=== PATIENT | female | born 1945 ===

== ENCOUNTER 2020-01-07 10:06 | Outpatient (REF) | payer OTHER, SELFPAY ==
--- NOTE | 2020-01-07 10:11 | CT_ITS ---
EXAMINATION: CT LUMBAR SPINE WITHOUT CONTRAST CLINICAL INFORMATION: Lower back pain COMPARISON: 10/15/2019 TECHNIQUE: Multidetector volumetric imaging of the lumbar spine performed without IV contrast. Coronal and sagittal reformatted images are obtained and reviewed. This CT examination was performed using dose optimization techniques as appropriate, variously including the following: *Automated exposure control *Adjustment of mA and/or kV according to patient size (this includes techniques or standardized protocols for targeted exams where dose is matched to indication/reason for exam; i.e. extremities or head) *Use of iterative reconstruction technique DLP; 356 mGy-cm FINDINGS: There is posterior fusion hardware in place at L4-L5. Grade 1 anterolisthesis of L3 on L4 and L4 on L5. This is unchanged. Disc space narrowing at L3-L4, L4-L5 with vacuum disc phenomenon at these levels. Also vacuum disc phenomenon at L5-S1. Severe arthropathy throughout. Laminectomy at L4-L5. The lung bases are clear. The visualized retroperitoneal structures show no acute abnormality. No lymphadenopathy. The sacroiliac joints are symmetric. Degenerative changes noted. Spinal levels: T12-L1: Hypertrophy of the ligamentum flavum on the left. Mild facet arthropathy. No spinal canal or neuroforaminal narrowing. L1-L2: Disc bulge. Facet arthropathy. Mild spinal canal narrowing. No neuroforaminal narrowing. L2-L3: Disc bulge with hypertrophy of the ligamentum flavum. Facet arthropathy. Moderate narrowing of the spinal canal. No neuroforaminal narrowing. L3-L4: Small disc bulge. Facet arthropathy with anterolisthesis of L3 on L4. Severe spinal canal narrowing. Moderate left neural foraminal narrowing. L4-L5: Laminectomy at this level. No narrowing. Fusion. L5-S1: No significant disc bulge. Facet arthropathy. No significant spinal canal or neuroforaminal narrowing. IMPRESSION: Intact posterior fusion hardware with unchanged alignment and appearance from previous CT. There is advanced degenerative change at L3-L4 with anterolisthesis of L3 on L4. Severe spinal canal narrowing and moderate left neural foraminal narrowing.
== END 2020-01-07 10:07 | disposition home or self-care (01) ==
LOC: HO.CT 10:06
PROVIDERS: PCP Nurse Practitioner Family; Visit Provider Nurse Practitioner Family
DX: M54.5 Low back pain (principal)
CPT/HCPCS: 72131

== ENCOUNTER 2020-01-18 12:33 | Outpatient (REF) | payer OTHER, SELFPAY | END 2020-01-18 12:34 | disposition home or self-care (01) | LOC: HO.HAP 12:33 | PROVIDERS: PCP Nurse Practitioner Family; Referring Provider Nurse Practitioner Family; Visit Provider Nurse Practitioner Family | DX: Z13.89 Encounter for screening for other disorder (principal) | CPT/HCPCS: 92700 ==

== ENCOUNTER → 2020-01-29 13:51 | Outpatient (BNVA) | payer OTHER, SELFPAY | PROVIDERS: PCP Nurse Practitioner Family; Referring Provider Nurse Practitioner Family; Visit Provider Nurse Practitioner Family | DX: K58.9 Irritable bowel syndrome, unspecified (principal); K21.9 Gastro-esophageal reflux disease without esophagitis | CPT/HCPCS: 99212 ==

== ENCOUNTER 2020-02-01 11:09 | Outpatient (REF) | payer OTHER, SELFPAY ==
--- NOTE | 2020-02-01 11:12 | CT_ITS ---
EXAMINATION: CT HEAD WITHOUT CONTRAST CLINICAL INFORMATION: Posttraumatic headache. History of falling. COMPARISON: Head CT 02/24/2018. TECHNIQUE: Contiguous axial imaging was performed from the skull base to vertex without intravenous administration of contrast. This CT examination was performed using dose optimization techniques as appropriate, variously including the following: *Automated exposure control *Adjustment of mA and/or kV according to patient size (this includes techniques or standardized protocols for targeted exams where dose is matched to indication/reason for exam; i.e. extremities or head) *Use of iterative reconstruction technique DLP: 628 mGy-cm. FINDINGS: There is no intracranial hemorrhage, extra-axial collection, mass effect, or territorial infarction. The ventricles are normal in size without evidence of hydrocephalus. The brain parenchyma is commensurate with the ventricles without disproportionate atrophy. No significant encephalomalacia or gliosis is seen. The calvarium is intact. The imaged portions of the paranasal sinuses and mastoid air cells are essentially clear. The sella is partially empty. CT/CT head/brain wo con IMPRESSION: No acute intracranial abnormality.
== END 2020-02-01 11:10 | disposition home or self-care (01) ==
LOC: HO.CT 11:09
PROVIDERS: PCP Nurse Practitioner Family; Visit Provider Nurse Practitioner Family
DX: G44.309 Post-traumatic headache, unspecified, not intractable (principal); Z91.81 History of falling
CPT/HCPCS: 70450

== ENCOUNTER 2020-02-15 10:44 | Outpatient (REF) | payer OTHER, SELFPAY | END 2020-02-15 10:45 | disposition home or self-care (01) | LOC: HO.HAP 10:44 | PROVIDERS: PCP Nurse Practitioner Family; Referring Provider Family Medicine; Visit Provider Nurse Practitioner Family | DX: Z46.1 Encounter for fitting and adjustment of hearing aid (principal); H90.3 Sensorineural hearing loss, bilateral | CPT/HCPCS: V5011; V5020; V5241; V5256 ==

== ENCOUNTER 2020-03-03 12:29 | Emergency (ER) | payer OTHER, SELFPAY ==
--- NOTE | 2020-03-03 12:57 | ED.FALL ---
HPI - Fall General Chief Complaint: Fall Stated Complaint: FAll Time Seen by Provider: 03/03/20 12:57 Source: EMS Mode of arrival: EMS Limitations: language barrier (Mongolian-speaking, cloth shrinking tester present for all instructions) History of Present Illness HPI Narrative: Pleasant 74-year-old female primarily Mongolian-speaking who presents via EMS from her home with complaint of fall and head/right shoulder injury. Reports feeling outside to have a cigarette after free for any smoking she went to turn to go back inside she has a walker with wheels and she stumbled on her feet and fell to her right side landing on the right shoulder and hitting her head on the ground. States there was a bystander close by who helped her up right away and called EMS. EMS subsequently placed her in a collar given the complaint of head injury. Patient denies any prodromal symptoms. No dizziness, chest pain or shortness of breath. No nausea vomiting or abdominal pain. States she has otherwise been at her usual health. She does live alone but has a PM HEAD COOK who helps her with her ADLs majority of the day. She denies any pain extremities and in her hands wrist or lower extremities. No torso injury or back pain. MD complaint: fall Fall from: standing Fall witnessed: yes, by bystander Place fall occurred: home Loss of consciousness: none Prolonged down time: no Symptoms prior to fall: none Context: tripped/slipped Location of injury: head and other (Right shoulder ) Related Data Home Medications Medication Instructions Recorded Confirmed atorvastatin 40 mg tablet 40 mg PO QPM 01/29/20 01/29/20 clonazepam 1 mg tablet 1 mg PO BID 01/29/20 01/29/20 dicyclomine 20 mg tablet 20 mg PO QID 01/29/20 01/29/20 duloxetine 60 mg capsule,delayed 60 mg PO DAILY 01/29/20 01/29/20 release gabapentin 300 mg capsule 600 mg PO QID cap 01/29/20 01/29/20 [id number]-[id number] PO 01/29/20 01/29/20 3,000-9,500-15,000 unit capsule,delayed releas sucralfate 100 mg/mL oral 10 ml PO BID 01/29/20 01/29/20 suspension Previous Rx's Medication Instructions Recorded dicyclomine 20 mg tablet 20 mg PO QID 30 Days #120 tab 12/31/19 Allergies Allergy/AdvReac Type Severity Reaction Status Date / Time morphine [MORPHINE] Allergy Intermediate GI Unverified 12/10/19 16:17 UPSET,TACHYCARDIA clams AdvReac Intermediate GI UPSET Unverified 12/10/19 16:17 rosiglitazone [From [facility]ANDIA] AdvReac Unknown PEDAL EDEMA Unverified 12/10/19 16:17 clam Allergy Unknown Uncoded 09/02/19 00:00 Review of Systems Review of Systems: Constitutional: No Weight loss, No Fever, No Chills, No Night Sweats, No Fatigue, No Malaise ENT/Mouth: No Hearing loss, No Ear Pain, No Nasal Congestion, No Sinus Pain, No Hoarseness, No sore throat Eyes: No Eye Pain, No Swelling, No Redness, No Foreign Body, No Discharge, No Vision Changes Cardiovascular: No Chest Pain, No SOB, No Dyspnea on Exertion, No Orthopnea, No Edema, No Palpitations Respiratory: No Cough, No Sputum, No Wheezing, No Smoke Exposure, No Dyspnea Gastrointestinal: No Nausea, No Vomiting, No Diarrhea, No Constipation, No abdominal Pain, No Hematochezia, No Melena Genitourinary: no irregular bleeding, No Dysuria, No Urinary Frequency, No Hematuria, No Urinary Incontinence, No Urgency, No Flank Pain, No Urinary Flow Changes, No Hesitancy Musculoskeletal: No joint pain, No Myalgias, No Joint Swelling, As noted in HPI; right shoulder pain and slight pain to the posterior side scalp right-sided Skin: No Skin Lesions, No rash Neuro: No Weakness, No Numbness, No Paresthesias, No Loss of Consciousness, No Dizziness, No Headache Psych: No Anxiety/Panic, No Depression, No SI/HI/AH/VH, No Social Issues, Heme/Lymph: No Bruising, No Bleeding,No Lymphadenopathy Endocrine: No Polyuria, No Polydipsia, No Temperature Intolerance Yes all other systems are reviewed and are negative [facility] Past Medical History Medical History (Updated 03/03/20 @ 15:59 by Jose Carter NP) Diabetes HTN (hypertension) Surgical History History of back surgery History of colonoscopy Hx of cholecystectomy Hx of endoscopy Family History Family History (Updated 01/29/20 @ 14:01 by Kathy Hernandez MA) Father No problems noted. Mother No problems noted. Social History Social History (Updated 01/29/20 @ 14:03 by Kathy Hernandez MA) Alcohol intake: never Smoking Status: Current every day smoker Tobacco Type: Cigarette Cigarettes Per Day: 5 Advance Directives: No Advance Directives Information Provided: Yes Physical Exam Vital Signs: Vital Signs: Last Vital Signs Temp 98.2 F 03/03/20 15:29 Pulse 65 03/03/20 15:29 Resp 16 03/03/20 15:29 BP 110/91 H 03/03/20 15:29 Pulse Ox 98 03/03/20 15:29 Body Mass Index 25.4 Reviewed Const: Other: Cervical collar in place General: cooperative and comfortable; No acute distress or intoxicated appearing Nutritional Appearance: average body habitus Orientation/consciousness: patient oriented x3 HENMT: Head: Yes normal to inspection Ears: hearing grossly normal bilaterally Eyes: General: appearance normal, both eyes and all related structures Visual Martinez: normal visual martinez by confrontation Neck: Other: Calling place Neck: Yes normal visual inspection Thyroid: Thyroid normal Chest: Chest palpation & inspection: normal inspection of the chest, normal palpation of entire chest wall and no crepitus Resp: Effort & Inspection: normal respiratory effort Auscultation: clear to auscultation bilaterally Cardio: Jugular venous distension: no JVD Rhythm: regular rhythm Heart sounds: S1 normal heart sound present and S2 normal heart sound present GI: Inspection: Yes normal to inspection Percussion: Yes normal to percussion Auscultation: normal bowel sounds : General: Yes no CVA tenderness Back/Spine/Pelvis: Back: no CVA tenderness Skin: General skin exam: no rashes or lesions noted Neuro: General: patient oriented x3 Extrem: General: Yes normal to inspection Shoulder/upper arm images: 1. Slight pain over this area where she had the ground. No abrasion, ecchymosis or obvious deformity. Distally neurovascular intact. Is able to move and take her own sweater off Course Course Course Narrative: A P of 70-year-old with above history presenting with mechanical fall injuring right shoulder and scalp hematoma imaging with incidental findings otherwise no acute fracture. Findings reviewed advised for outpatient follow-up for chest CT. Copy of her CT provided. She is able to get out of bed by herself but her sweater on and ambulated without any pain or discomfort. MDM - Fall Medical Records Attestation: I reviewed the patient's medical records. Lab Data Attestation: I reviewed the patient's lab results. Imaging Data Right shoulder x-ray: Radiologist's impression: [id number] [place] [address] XRay Report Signed Patient: Cheryl Romeo MMR#: [id number] : 1945cct:[id number] Age/Sex: 74 / FADM Date: 03/03/20 Loc: HO.ED Attending Dr: Ordering Physician: Jose Carter NP Date of Service: 03/03/20 Procedure(s): XR shoulder RT min 2V Accession Number(s): [id number] cc: Jose Carter NP~ EXAMINATION: XR SHOULDER, RIGHT CLINICAL INFORMATION: Pain after fall COMPARISON: None TECHNIQUE: AP external rotation, Grashey, scapular Y, and axillary views of the right shoulder. FINDINGS: Alignment is normal at the acromioclavicular and glenohumeral joints. There is osteophyte formation and subchondral cystic change of the degenerated acromioclavicular joint. Small osteophytes are present at the inferior aspect of the glenohumeral joint. The humeral head is well-positioned over the intact glenoid. The glenohumeral joint space is preserved. There is mild enthesophyte formation at the greater tuberosity the humerus. No evidence of calcium deposition within rotator cuff tendons. The visualized right upper lung is normal. No pneumothorax. No rib fracture (within the [id number]). Multilevel degenerative arthropathy of the partially visualized thoracic spine. XR/XR shoulder RT min 2V IMPRESSION: * No acute fracture or malalignment at the right shoulder. * Mild osteoarthritis of the glenohumeral joint, and [id number] osteoarthritis of the acromioclavicular joint. Dictated By:LISBETH CARTAGENA MD Signed By:<Electronically signed by LISBETH CARTAGENA MD in OV>03/03/20 1523 DD/ 1323 TD/TT: [employer] Insurance Advisor: PD Head/cervical CT: Radiologist's impression: Cheryl Romeo 74 F [address] [address] [address] Scan Report Signed Patient: Cheryl Romeo MMR#: [id number] : 1945cct:[id number] Age/Sex: 74 / FADM Date: 03/03/20 Loc: HO.ED Attending Dr: Ordering Physician: Jose Carter NP Date of Service: 03/03/20 Procedure(s): CT cervical spine wo con Accession Number(s): [id number] cc: Jose Carter TRAVEL MONEY ADVISOR~ EXAMINATION: CT HEAD W/O IV CONTRAST CT CERVICAL SPINE W/O IV CONTRAST CLINICAL INFORMATION: Pain after fall. COMPARISON: Head CT from 02/01/2020 TECHNIQUE: Head - Contiguous axial imaging of the head was performed from the skull base to the vertex without the administration of intravenous contrast, and axial images are reconstructed at 2 mm and 5 mm slice thickness. Cervical spine - A volumetric, helical CT acquisition of the cervical spine was obtained without contrast; in addition to the standard set of axial images, multiplanar reformatted images were provided in the coronal and sagittal imaging planes. This CT examination was performed using dose optimization techniques as appropriate, variously including the following: *Automated exposure control *Adjustment of mA and/or kV according to patient size (this includes techniques or standardized protocols for targeted exams where dose is matched to indication/reason for exam; i.e. extremities or head) *Use of iterative reconstruction technique DLP: 907 mGy-cm (total) FINDINGS: HEAD: No intracranial hemorrhage, extra-axial fluid collection, focal mass effect or midline shift. No evidence of an acute major vascular territory infarction. The huynh-white matter differentiation is maintained. No hydrocephalus. Old small lacunar infarct along the right muir radiata (image 47, series 4). No acute findings in the posterior fossa. Cerebellar tonsils are normal position. The calvarium is intact. Mild mucosal thickening of inferior maxillary sinuses. Otherwise, the paranasal sinuses, mastoid air cells and middle ear cavities are well aerated. Mild osteoarthritis of bilateral temporomandibular joints. Lenses are extracted from the globes of each orbit. Patchy opacity from contusion/hemorrhage in subcutaneous tissues of the right occipital scalp. CERVICAL SPINE: No acute abnormalities. The craniocervical junction is normal. The occipital condyles, dens and atlantodental articulation are intact. The vertebral body heights are normal. No fractures in the anterior or posterior elements. No prevertebral soft tissue swelling. There is multilevel facet osteoarthritis and discovertebral degenerative change. At C4-C5, the facet osteoarthritis is associated with 0.3 cm of anterolisthesis of C4 on C5. Also, there is a stairstep pattern of mild degenerative anterolisthesis at C5-C6, C6-C7 and C7-T1. Posterior disc osteophyte complexes at C3-C4 and C6-C7 produce mild indentation on the ventral surface of the thecal sac. No significant canal stenosis. There is multilevel uncovertebral joint hypertrophy. Osteophytes produce varying degrees of bilateral neural foraminal stenosis in the chronically degenerated spine. No spinal hematoma. No apical pneumothorax. Small, 0.4 cm solid, noncalcified nodule is present in the posterior left upper lobe along the major fissure. Thyroid gland is unremarkable. CT/CT cervical spine wo con IMPRESSION: * No acute intracranial pathology. * After the recent fall, there is a right occipital scalp hematoma. No calvarial fracture. * There are no fractures within the degenerated cervical spine. * No fracture or malalignment in the cervical spine. * Incidentally noted is a small, 0.4 cm nodule in the left upper lobe. Chest CT follow-up is not required in a low-risk patient and may be considered optional in a high risk patient. Dictated By:LISBETH CARTAGENA MD Signed By:<Electronically signed by LISBETH CARTAGENA MD in OV>03/03/20 1440 DD/ 1323 TD/TT: [employer] Insurance Advisor: PD Discharge Plan Discharge Clinical Impression: Fall from slip, trip, or stumble, Hematoma of scalp, Contusion of right shoulder Patient Disposition: Home, Self-Care Instructions: Contusion in Adults (ED), Scalp Contusion in Adults (ED), Fall Prevention (ED) Prescriptions: No Action dicyclomine 20 mg tablet 20 mg PO QID 30 Days Qty: 120 RF: 3 sucralfate 100 mg/mL suspension 10 ml PO BID RF: 0 Creon 3,000-9,500- 15,000 unit capsule,delayed release(DR/EC) PO RF: 0 atorvastatin 40 mg tablet 40 mg PO QPM RF: 0 clonazepam 1 mg tablet 1 mg PO BID RF: 0 dicyclomine 20 mg tablet 20 mg PO QID RF: 0 duloxetine 60 mg capsule,delayed release(DR/EC) 60 mg PO DAILY RF: 0 gabapentin 300 mg capsule 600 mg PO QID RF: 0 Referrals: ED Physician,Generic [Physician] - 1 week (Primary care ) Discharge Date/Time: 03/03/20 16:11
[2020-03-03 13:13] VITALS: BP 120/71; PULSE 61; RESP 20; TEMP 36.9; O2SAT 96; BMI 25.4
--- NOTE | 2020-03-03 13:23 | CT_ITS ---
EXAMINATION: CT HEAD W/O IV CONTRAST CT CERVICAL SPINE W/O IV CONTRAST CLINICAL INFORMATION: Pain after fall. COMPARISON: Head CT from 02/01/2020 TECHNIQUE: Head - Contiguous axial imaging of the head was performed from the skull base to the vertex without the administration of intravenous contrast, and axial images are reconstructed at 2 mm and 5 mm slice thickness. Cervical spine - A volumetric, helical CT acquisition of the cervical spine was obtained without contrast; in addition to the standard set of axial images, multiplanar reformatted images were provided in the coronal and sagittal imaging planes. This CT examination was performed using dose optimization techniques as appropriate, variously including the following: *Automated exposure control *Adjustment of mA and/or kV according to patient size (this includes techniques or standardized protocols for targeted exams where dose is matched to indication/reason for exam; i.e. extremities or head) *Use of iterative reconstruction technique DLP: 907 mGy-cm (total) FINDINGS: HEAD: No intracranial hemorrhage, extra-axial fluid collection, focal mass effect or midline shift. No evidence of an acute major vascular territory infarction. The huynh-white matter differentiation is maintained. No hydrocephalus. Old small lacunar infarct along the right muir radiata (image 47, series 4). No acute findings in the posterior fossa. Cerebellar tonsils are normal position. The calvarium is intact. Mild mucosal thickening of inferior maxillary sinuses. Otherwise, the paranasal sinuses, mastoid air cells and middle ear cavities are well aerated. Mild osteoarthritis of bilateral temporomandibular joints. Lenses are extracted from the globes of each orbit. Patchy opacity from contusion/hemorrhage in subcutaneous tissues of the right occipital scalp. CERVICAL SPINE: No acute abnormalities. The craniocervical junction is normal. The occipital condyles, dens and atlantodental articulation are intact. The vertebral body heights are normal. No fractures in the anterior or posterior elements. No prevertebral soft tissue swelling. There is multilevel facet osteoarthritis and discovertebral degenerative change. At C4-C5, the facet osteoarthritis is associated with 0.3 cm of anterolisthesis of C4 on C5. Also, there is a stairstep pattern of mild degenerative anterolisthesis at C5-C6, C6-C7 and C7-T1. Posterior disc osteophyte complexes at C3-C4 and C6-C7 produce mild indentation on the ventral surface of the thecal sac. No significant canal stenosis. There is multilevel uncovertebral joint hypertrophy. Osteophytes produce varying degrees of bilateral neural foraminal stenosis in the chronically degenerated spine. No spinal hematoma. No apical pneumothorax. Small, 0.4 cm solid, noncalcified nodule is present in the posterior left upper lobe along the major fissure. Thyroid gland is unremarkable. CT/CT cervical spine wo con IMPRESSION: * No acute intracranial pathology. * After the recent fall, there is a right occipital scalp hematoma. No calvarial fracture. * There are no fractures within the degenerated cervical spine. * No fracture or malalignment in the cervical spine. * Incidentally noted is a small, 0.4 cm nodule in the left upper lobe. Chest CT follow-up is not required in a low-risk patient and may be considered optional in a high risk patient.
--- NOTE | 2020-03-03 13:23 | XR_ITS ---
EXAMINATION: XR SHOULDER, RIGHT CLINICAL INFORMATION: Pain after fall COMPARISON: None TECHNIQUE: AP external rotation, Grashey, scapular Y, and axillary views of the right shoulder. FINDINGS: Alignment is normal at the acromioclavicular and glenohumeral joints. There is osteophyte formation and subchondral cystic change of the degenerated acromioclavicular joint. Small osteophytes are present at the inferior aspect of the glenohumeral joint. The humeral head is well-positioned over the intact glenoid. The glenohumeral joint space is preserved. There is mild enthesophyte formation at the greater tuberosity the humerus. No evidence of calcium deposition within rotator cuff tendons. The visualized right upper lung is normal. No pneumothorax. No rib fracture (within the [id number]). Multilevel degenerative arthropathy of the partially visualized thoracic spine. XR/XR shoulder RT min 2V IMPRESSION: * No acute fracture or malalignment at the right shoulder. * Mild osteoarthritis of the glenohumeral joint, and [id number] osteoarthritis of the acromioclavicular joint.
--- NOTE | 2020-03-03 14:50 | PC.NURSE ---
ambulatory with steady gait, no bleeding from facial wound, cold pack in place, julianne blanco at bedside
--- NOTE | 2020-03-03 14:51 | PC.NURSE ---
human relations teacher chuyita and pt aware ct scan results, hard collar removed by human relations teacher
[2020-03-03 15:29] VITALS: BP 110/91; PULSE 65; RESP 16; TEMP 36.8; O2SAT 98
== END 2020-03-03 16:11 | disposition home or self-care (01) ==
PROVIDERS: Nurse Practitioner Primary Care; Emergency Provider Emergency Medicine
DX: S00.03XA Contusion of scalp, initial encounter (principal); S40.011A Contusion of right shoulder, initial encounter; W01.198A Fall on same level from slipping, tripping and stumbling with subsequent striking against other object, initial encounter; Z20.828 Contact with and (suspected) exposure to other viral communicable diseases; R91.8 Other nonspecific abnormal finding of lung field; R91.1 Solitary pulmonary nodule; Y93.01 Activity, walking, marching and hiking; Y92.480 Sidewalk as the place of occurrence of the external cause; Y99.9 Unspecified external cause status; F17.210 Nicotine dependence, cigarettes, uncomplicated
CPT/HCPCS: 70450; 72125; 73030; 99283; U0003

== ENCOUNTER 2020-04-08 11:08 | Outpatient (REF) | payer OTHER, SELFPAY ==
--- NOTE | 2020-04-08 | MM_ITS ---
EXAMINATION: MM SCREENING DIGITAL BREAST TOMOSYNTHESIS, BILATERAL CLINICAL INFORMATION: Screening. Asymptomatic. The lifetime risk of breast cancer based on the Tyrer-Cuzick Model is 3%. COMPARISON: Mammography: 01/15/2019, 12/31/2017, 12/04/2016, 06/08/2016, 05/31/2016 TECHNIQUE: Digital breast tomosynthesis is performed in both the craniocaudal and mediolateral oblique views along with computer-aided detection (CAD). Synthesized 2D images are generated from the tomosynthesis. FINDINGS: There are scattered areas of fibroglandular density (ACR BI-RADS breast composition Category b). Parenchymal pattern is similar to prior studies. Again, there is nodular asymmetry mid upper outer left breast and nodular asymmetry anterior upper outer right breast. There is no developing density or interval mass or architectural abnormality. There are scattered benign round calcifications in each breast low left axillary tail node again seen. The skin contours are smooth. MM/MM tomosynthesis screening BI IMPRESSION: No significant changes from prior exams. ASSESSMENT: BI-RADS 2: Benign RECOMMENDATION: Routine annual mammography screening. This patient's information was entered into a reminder system with a target due date for their next mammogram.
== END 2020-04-08 11:09 | disposition home or self-care (01) ==
LOC: HO.MAMMO 11:08
PROVIDERS: PCP Nurse Practitioner Family; Visit Provider Nurse Practitioner Family
DX: Z12.31 Encounter for screening mammogram for malignant neoplasm of breast (principal)
CPT/HCPCS: 77063; 77067

== ENCOUNTER 2020-04-29 10:06 | Outpatient (REF) | payer MEDICARE, SELFPAY ==
[2020-04-29 13:42] LABS: Glucose Urine UA NEG (NEG); Leukocyte Esterase Urine NEG (NEG); Nitrite Urine NEG (NEG); Urine Blood TRACE (NEG); Urine Ketones NEG (NEG); Urine Protein NEG (NEG-TRACE)
[2020-04-29 13:44] LABS: Color Urine YELLOW
[2020-04-29 13:45] LABS: Appearance Urine CLEAR
[2020-04-29 13:54] LABS: Squamous Epithelial Cell Urine 1+ /LPF; WBC Urine 0 /HPF (0-4)
== END 2020-04-29 10:07 | disposition home or self-care (01) ==
LOC: HO.LAB 10:06
PROVIDERS: PCP Nurse Practitioner Family; Visit Provider Nurse Practitioner
DX: K58.0 Irritable bowel syndrome with diarrhea (principal); K21.9 Gastro-esophageal reflux disease without esophagitis; K29.40 Chronic atrophic gastritis without bleeding; R10.33 Periumbilical pain; K90.89 Other intestinal malabsorption; R41.3 Other amnesia; Z86.010 Personal history of colon polyps; Z90.49 Acquired absence of other specified parts of digestive tract
CPT/HCPCS: 81001; Q3014

== ENCOUNTER 2020-08-30 11:35 | Emergency (ER) | payer MEDICARE, SELFPAY ==
--- NOTE | ~2020-08-30 | CT_ITS ---
EXAMINATION: CT ABDOMEN AND PELVIS WITH CONTRAST CLINICAL INFORMATION: Reason for Exam Lower AP, r/o divert COMPARISON: None. TECHNIQUE: Multidetector volumetric imaging was performed from the superior aspect of the liver through the pubic symphysis following administration of 100 mL Omnipaque 300 intravenous contrast. Sagittal and coronal reformatted images were obtained on the technologist workstation.. This CT examination was performed using dose optimization techniques as appropriate, variously including the following: *Automated exposure control *Adjustment of mA and/or kV according to patient size (this includes techniques or standardized protocols for targeted exams where dose is matched to indication/reason for exam; i.e. extremities or head) *Use of iterative reconstruction technique DLP: 445 mGy-cm FINDINGS: LUNG BASES: The visualized lung bases are unremarkable. Prominent coronary artery calcification. LIVER, GALLBLADDER, AND BILIARY TREE: The liver is normal in size, shape, and attenuation. No focal hepatic lesion or biliary ductal dilatation is present. The gallbladder surgically absent. PANCREAS: Unremarkable. SPLEEN: Unremarkable. ADRENAL GLANDS: Unremarkable. KIDNEYS AND URETERS: The kidneys are normal in size, shape, and attenuation. No hydronephrosis, hydroureter, or calculi seen. No perinephric stranding. BLADDER: Likely small component of cystocele protruding into the vagina bladder wall itself but is otherwise unremarkable. GASTROINTESTINAL TRACT: Extensive diverticulosis but no evidence for diverticulitis. No colonic wall thickening or pericolonic inflammatory changes. Visualized small bowel unremarkable stomach is decompressed. ABDOMINAL WALL: Nonspecific soft tissue fullness along the midline epigastric abdominal wall. Unfortunately this area is obscured by motion artifact and not well assessed. This has been present on multiple prior studies dating back to at least 2018 however. LYMPHOVASCULAR STRUCTURES: Vascular calcification within the aorta iliac system. No bulky adenopathy PELVIC VISCERA: Unremarkable. OSSEOUS STRUCTURES: Multilevel degenerative changes in the spine with posterior spinal fusion hardware again noted. CT/CT abdomen pelvis w con IMPRESSION: Chronic appearing changes similar to the prior studies described above. There is scattered diverticulosis but no obvious diverticulitis.
[2020-08-30 11:52] VITALS: BP 102/60; PULSE 76; RESP 18; TEMP 36.6; O2SAT 100; BMI 25.0
[2020-08-30 12:21] LABS: Glucose Urine UA NEG (NEG); Leukocyte Esterase Urine NEG (NEG); Nitrite Urine NEG (NEG); Urine Blood NEG (NEG); Urine Ketones NEG (NEG); Urine Protein TRACE MG/DL (NEG-TRACE)
[2020-08-30 12:22] LABS: Appearance Urine HAZY; Color Urine YELLOW
--- NOTE | 2020-08-30 14:33 | ED_ITS ---
HPI - Abdominal Pain General Chief Complaint: Abdominal Pain Stated Complaint: pelvic pain Time Seen by Provider: 08/30/20 14:32 Source: patient, family and interpreter translator Mode of arrival: ambulatory Limitations: language barrier History of Present Illness HPI narrative: 75-year-old female with past medical history of cholecystectomy, total hyst, depression,, fibromyalgia, spinal stenosis, osteopenia, diabetes, hypertension, GERD here with complaints of lower abdominal pain for the last week. Tells me she has chronic diarrhea after having her gallbladder removed. It is not changed from baseline. No black or bloody stools. She had 1 episode of nausea this week but no vomiting. No fevers, chills, urinary symptoms. Related Data Home Medications Medication Instructions Recorded Confirmed atorvastatin 40 mg tablet 40 mg PO QPM 01/29/20 01/29/20 clonazepam 1 mg tablet 1 mg PO BID 01/29/20 01/29/20 duloxetine 60 mg capsule,delayed 60 mg PO DAILY 01/29/20 01/29/20 release gabapentin 300 mg capsule 600 mg PO QID cap 01/29/20 01/29/20 Previous Rx's Medication Instructions Recorded sucralfate 100 mg/mL oral 10 ml PO BEDTIME #900 ml 03/14/20 suspension foudhg-dibvvgvr-rgnxdec 1 cap PO .q8am, 12pm, 3pm, 6pm 30 04/29/20 3,000-9,500-15,000 unit Days #120 cap capsule,delayed releas dicyclomine 20 mg tablet 20 mg PO QID #120 tab 05/20/20 pantoprazole 20 mg tablet,delayed 20 mg PO QAM #90 tab 08/24/20 release Allergies Allergy/AdvReac Type Severity Reaction Status Date / Time morphine [MORPHINE] Allergy Intermediate GI Verified 04/29/20 10:31 UPSET,TACHYCARDIA clams AdvReac Intermediate GI UPSET Verified 04/29/20 10:31 rosiglitazone [From AVANDIA] AdvReac Unknown PEDAL EDEMA Verified 04/29/20 10:31 clam Allergy Unknown unknown Uncoded 04/29/20 10:31 Review of Systems Review of Systems Yes all other systems are reviewed and are negative Constitutional: Reports no additional constitutional complaints, Denies body ache(s), Denies chills, Denies fever(s), Denies headache(s) and Denies weakness Eyes: Reports no additional eye complaints and Denies change in vision Reports system reviewed and no additional complaints, except as documented, Denies dizziness, Denies headache(s), Denies nasal congestion, Denies nasal discharge and Denies neck pain Cardiovascular: Reports no additional cardiovascular complaints, Denies chest pain, Denies leg edema and Denies dyspnea Respiratory: Reports no additional respiratory complaints, Denies cough and Denies dyspnea Gastrointestinal: Reports no additional gastrointestinal complaints, Reports abdominal pain, Denies hematochezia, Reports diarrhea (chronic), Denies nausea and Denies vomiting Genitourinary: Reports no additional female genitourinary complaints and Denies urinary incontinence Musculoskeletal: Reports no additional musculoskeletal complaints, Denies back pain, Denies arthralgias, Denies joint swelling, Denies neck pain, Denies numbness and Denies tingling Skin/Breast: Reports system reviewed and no additional complaints, except as docu and Denies rash Reports system reviewed and no additional complaints, except as documented, Denies Abnormal speech present, Denies dizziness, Denies headache(s), Denies numbness, Denies tingling and Denies weakness Physical Exam Vital Signs: Vital Signs: Last Vital Signs Temp 98.6 F 08/30/20 15:30 Pulse 62 08/30/20 15:30 Resp 18 08/30/20 15:30 BP 133/77 08/30/20 15:30 Pulse Ox 98 08/30/20 15:30 Body Mass Index 25.0 Const: General: cooperative, healthy appearing, comfortable and no acute distress Orientation/consciousness: patient oriented x3 Limitations: no limitations HENMT: Head: Yes normal to inspection Ears: hearing grossly normal bilaterally General nose exam: Normal external nose present Face and sinus: Yes normal facial exam Mouth: Normal oral and palatal mucosa present Throat: Yes posterior oropharynx normal Eyes: General: appearance normal, both eyes and all related structures Pupils: Equal, round and reactive pupils present Neck: Neck: Yes normal visual inspection Chest: Chest palpation & inspection: normal inspection of the chest Resp: Effort & Inspection: normal respiratory effort Auscultation: clear to auscultation bilaterally Cardio: Rate: regular rate Rhythm: regular rhythm Peripheral pulses: Peripheral pulses 2+ throughout GI: Inspection: Yes normal to inspection Palpation (GI): Soft to palpation and Tenderness to palpation present (GI) (mildly tender LLQ/RLQ. no rebound or guarding. ) Auscultation: normal bowel sounds Back/Spine/Pelvis: Thoracic/Lumbar Spine: thoracic and lumbar spine normal to inspection Skin: General skin exam: no rashes or lesions noted Neuro: General: patient oriented x3, no focal motor deficits and normal sensation to monofilament Cranial nerves: Yes Equal, round and reactive pupils present Cognition (Neuro): normal cognition Speech: No Abnormal speech present Gait exam (Neuro): Normal gait present Motor exam (neuro): 5/5 motor strength present throughout Extrem: General: Yes normal to inspection, Yes no pedal edema and Yes no calf tenderness Course Course Course Narrative: 75-year-old female here with lower abdominal pain with loading and acute diarrhea for last 1 week. Has some tenderness in the right lower left lower quadrant on exam. Will need labs, UA, CT a/P 1820-labs unremarkable. Urine negative. CT shows no acute finding. Repeat abdominal exam benign. Likely underlying IBS. We discussed using her dicyclomine at home. We will have her follow-up with her GI for [facility]. Reviewed worrisome signs and symptoms and when to return to the emergency department. Comfortable discharge home. MDM - Abdominal Pain MDM Narrative Medical decision making narrative: UTI Differential Diagnosis Differential diagnosis: Likely abdominal pain, diverticulitis, gastroenteritis and renal colic Medical Records Attestation: I reviewed the patient's medical records. Lab Data Attestation: I reviewed the patient's lab results. Result diagrams: 08/30/20 15:26 08/30/20 15:26 Labs: Lab Results 08/30/20 08/30/20 08/30/20 Range/Units 12:11 15:26 15:26 WBC 5.8 (4.8-10.8) X10*3/uL RBC 3.86 L (4.20-5.50) X10*6/uL Hgb 12.0 (12.0-16.0) g/dl Hct 36.0 L (37-47) % MCV 93.3 (80-98) fL MCH 31.1 (27.0-33.0) pg MCHC 33.3 (31.0-35.0) g/dl RDW 11.9 (11.0-16.0) % Plt Count 161 (160-400) X10*3/uL MPV 10.9 (9.4-12.3) fL Immature Gran % (Auto) 0.2 (0.0-0.4) % Neut % (Auto) 57.1 (45-73) % Lymph % (Auto) 34.6 (20-40) % [place] % (Auto) 6.3 (2-11) % Eos % (Auto) 1.5 (0-4) % Baso % (Auto) 0.3 (0-2) % Lymph # (Auto) 2.0 (1.2-4.9) X10*3/uL [place] # (Auto) 0.4 (0.1-1.2) X10*3/uL Eos # (Auto) 0.1 (0.0-0.4) X10*3/uL Baso # (Auto) 0.0 (0.0-0.2) X10*3/uL Abs Immat Gran (auto) 0.01 (0.00-0.03) X10*3/uL Absolute Neuts (auto) 3.3 (2.0-8.3) X10*3/uL Absolute Nucleated RBC 0.000 (0.0-0.012) X10*3/uL Nucleated RBC % (auto) 0.0 (0.0-0.2) /100WBC Sodium 141 (135-145) mmol/L Potassium 3.5 (3.3-5.1) mmol/L Chloride 103 (96-108) mmol/L Carbon Dioxide 33 H (22-29) mmol/L Anion Gap 9 L (12-20) BUN 17 H (9-16) mg/dL Creatinine 0.73 (0.5-1.4) mg/dL Estim Creat Clear Calc 50.8 Estimated GFR > 60 Random Glucose 76 (60-115) mg/dL Calcium 9.9 (8.4-10.2) mg/dL Total Bilirubin (0.0-1.0) mg/dL Direct Bilirubin (0.0-0.5) mg/dL AST (5-31) U/L ALT (0-31) U/L Alkaline Phosphatase (39-117) U/L Total Protein (6.5-8.0) g/dL Albumin (3.5-5.0) g/dL Lipase (8-78) U/L Urine Color YELLOW Urine Appearance HAZY Urine pH 6.0 (5.0-8.0) Ur Specific [place] 1.020 (1.005-1.025) Urine Protein TRACE (NEG-TRACE) MG/DL Urine Glucose (UA) NEG (NEG) MG/DL Urine Ketones NEG (NEG) MG/DL Urine Blood NEG (NEG) Urine Nitrite NEG (NEG) Ur Leukocyte Esterase NEG (NEG) 08/30/20 Range/Units 15:26 WBC (4.8-10.8) X10*3/uL RBC (4.20-5.50) X10*6/uL Hgb (12.0-16.0) g/dl Hct (37-47) % MCV (80-98) fL MCH (27.0-33.0) pg MCHC (31.0-35.0) g/dl RDW (11.0-16.0) % Plt Count (160-400) X10*3/uL MPV (9.4-12.3) fL Immature Gran % (Auto) (0.0-0.4) % Neut % (Auto) (45-73) % Lymph % (Auto) (20-40) % [place] % (Auto) (2-11) % Eos % (Auto) (0-4) % Baso % (Auto) (0-2) % Lymph # (Auto) (1.2-4.9) X10*3/uL [place] # (Auto) (0.1-1.2) X10*3/uL Eos # (Auto) (0.0-0.4) X10*3/uL Baso # (Auto) (0.0-0.2) X10*3/uL Abs Immat Gran (auto) (0.00-0.03) X10*3/uL Absolute Neuts (auto) (2.0-8.3) X10*3/uL Absolute Nucleated RBC (0.0-0.012) X10*3/uL Nucleated RBC % (auto) (0.0-0.2) /100WBC Sodium (135-145) mmol/L Potassium (3.3-5.1) mmol/L Chloride (96-108) mmol/L Carbon Dioxide (22-29) mmol/L Anion Gap (12-20) BUN (9-16) mg/dL Creatinine (0.5-1.4) mg/dL Estim Creat Clear Calc Estimated GFR Random Glucose (60-115) mg/dL Calcium (8.4-10.2) mg/dL Total Bilirubin 0.4 (0.0-1.0) mg/dL Direct Bilirubin < 0.2 (0.0-0.5) mg/dL AST 19 (5-31) U/L ALT 18 (0-31) U/L Alkaline Phosphatase 93 (39-117) U/L Total Protein 6.9 (6.5-8.0) g/dL Albumin 4.2 (3.5-5.0) g/dL Lipase 192 H (8-78) U/L Urine Color Urine Appearance Urine pH (5.0-8.0) Ur Specific [place] (1.005-1.025) Urine Protein (NEG-TRACE) MG/DL Urine Glucose (UA) (NEG) MG/DL Urine Ketones (NEG) MG/DL Urine Blood (NEG) Urine Nitrite (NEG) Ur Leukocyte Esterase (NEG) Imaging Data CT scan - abdomen: Attestation: I personally reviewed and interpreted this imaging study as follows: Radiologist's impression: EXAMINATION: CT ABDOMEN AND PELVIS WITH CONTRAST CLINICAL INFORMATION: Reason for Exam Lower AP, r/o divert COMPARISON: None. TECHNIQUE: Multidetector volumetric imaging was performed from the superior aspect of the liver through the pubic symphysis following administration of 100 mL Omnipaque 300 intravenous contrast. Sagittal and coronal reformatted images were obtained on the technologist workstation.. This CT examination was performed using dose optimization techniques as appropriate, variously including the following: *Automated exposure control *Adjustment of mA and/or kV according to patient size (this includes techniques or standardized protocols for targeted exams where dose is matched to indication/reason for exam; i.e. extremities or head) *Use of iterative reconstruction technique DLP: 445 mGy-cm FINDINGS: LUNG BASES: The visualized lung bases are unremarkable. Prominent coronary artery calcification. LIVER, GALLBLADDER, AND BILIARY TREE: The liver is normal in size, shape, and attenuation. No focal hepatic lesion or biliary ductal dilatation is present. The gallbladder surgically absent. PANCREAS: Unremarkable. SPLEEN: Unremarkable. ADRENAL GLANDS: Unremarkable. KIDNEYS AND URETERS: The kidneys are normal in size, shape, and attenuation. No hydronephrosis, hydroureter, or calculi seen. No perinephric stranding. BLADDER: Likely small component of cystocele protruding into the vagina bladder wall itself but is otherwise unremarkable. GASTROINTESTINAL TRACT: Extensive diverticulosis but no evidence for diverticulitis. No colonic wall thickening or pericolonic inflammatory changes. Visualized small bowel unremarkable stomach is decompressed. ABDOMINAL WALL: Nonspecific soft tissue fullness along the midline epigastric abdominal wall. Unfortunately this area is obscured by motion artifact and not well assessed. This has been present on multiple prior studies dating back to at least 2018 however. LYMPHOVASCULAR STRUCTURES: Vascular calcification within the aorta iliac system. No bulky adenopathy PELVIC VISCERA: Unremarkable. OSSEOUS STRUCTURES: Multilevel degenerative changes in the spine with posterior spinal fusion hardware again noted. CT/CT abdomen pelvis w con IMPRESSION: Chronic appearing changes similar to the prior studies described above. There is scattered diverticulosis but no obvious diverticulitis. Discharge Plan Discharge Clinical Impression: Irritable bowel syndrome with diarrhea Patient Disposition: Home, Self-Care Instructions: Irritable Bowel Syndrome (ED) Additional Instructions: Your blood work looked very good with the exception of a mildly elevated lipase. There is no evidence of pancreatitis on the CT scan. I want you to follow up with Luda Wyatt with GI this week You can take dicyclomine for discomfort. Prescriptions: No Action sucralfate 100 mg/mL suspension 10 ml PO BEDTIME Qty: 900 RF: 1 dicyclomine 20 mg tablet 20 mg PO QID Qty: 120 RF: 3 pantoprazole 20 mg tablet,delayed release (DR/EC) 20 mg PO QAM Qty: 90 RF: 1 atorvastatin 40 mg tablet 40 mg PO QPM RF: 0 clonazepam 1 mg tablet 1 mg PO BID RF: 0 duloxetine 60 mg capsule,delayed release(DR/EC) 60 mg PO DAILY RF: 0 gabapentin 300 mg capsule 600 mg PO QID RF: 0 Creon 3,000-9,500- 15,000 unit capsule,delayed release(DR/EC) 1 cap PO .q8am, 12pm, 3pm, 6pm 30 Days Qty: 120 RF: 3 Referrals: Luda Wyatt ANP-C [Nurse Practitioner] - 2 days Interventions: ED Discharge Assessment Last Done: 08/30/20 19:07 Discharge Date/Time: 08/30/20 19:07 Print Language: Yoruba [facility] Past Medical History Attestation statement: The following information was validated with the patient. Source: old records reviewed and nursing notes reviewed Medical History Diabetes HTN (hypertension) Incisional hernia Sebaceous cyst of axilla Surgical History History of back surgery History of colonoscopy Hx of cholecystectomy Hx of endoscopy Status post right knee replacement Family History Family History Father No problems noted. Mother No problems noted. Social History Social History Alcohol intake: never Cigarettes Per Day: 5 Advance Directives: No Advance Directives Information Provided: No
[2020-08-30 15:30] VITALS: BP 133/77; PULSE 62; RESP 18; TEMP 37; O2SAT 98
[2020-08-30 15:42] LABS: MANUAL DIFF FLAG NO
[2020-08-30 15:43] LABS: Basophils Percent Auto 0.3 % (0-2); Eosinophils Absolute Auto 0.1 X10*3/uL (0.0-0.4); Eosinophils Percent Auto 1.5 % (0-4); Imm Gran Abs Auto 0.01 X10*3/uL (0.00-0.03); Imm Gran Pct Auto 0.2 % (0.0-0.4); Lymphocytes Percent Auto 34.6 % (20-40); Mean Corpuscular HGB Conc 33.3 g/dl (31.0-35.0); Mean Corpuscular Hemoglobin 31.1 pg (27.0-33.0); Mean Corpuscular Volume 93.3 fL (80-98); Mean Platelet Volume 10.9 fL (9.4-12.3); Monocytes Absolute Auto 0.4 X10*3/uL (0.1-1.2); Monocytes Percent Auto 6.3 % (2-11); Neutrophils Absolute Auto 3.3 X10*3/uL (2.0-8.3); Neutrophils Percent Auto 57.1 % (45-73); Platelet Count 161 X10*3/uL (160-400); Red Blood Count 3.86 X10*6/uL (4.20-5.50); Red Cell Distribution Width 11.9 % (11.0-16.0); White Blood Count 5.8 X10*3/uL (4.8-10.8)
[2020-08-30 16:18] LABS: Anion Gap 9 (12-20); Blood Urea Nitrogen 17 mg/dL (9-16); Calcium 9.9 mg/dL (8.4-10.2); Carbon Dioxide 33 mmol/L (22-29); Chloride 103 mmol/L (96-108); Creatinine Clr Calc Pharmacy 50.8; Estimated Glomerular Filt Rate > 60; Glucose Random 76 mg/dL (60-115); Potassium 3.5 mmol/L (3.3-5.1); Sodium 141 mmol/L (135-145)
[2020-08-30 16:21] LABS: Alanine Aminotransferase 18 U/L (0-31); Albumin Level 4.2 g/dL (3.5-5.0); Alkaline Phosphatase 93 U/L (39-117); Aspartate Amino Transferase 19 U/L (5-31); Bilirubin Direct < 0.2 mg/dL (0.0-0.5); Bilirubin Total 0.4 mg/dL (0.0-1.0); Total Protein 6.9 g/dL (6.5-8.0)
[2020-08-30 16:38] LABS: Lipase 192 U/L (8-78)
[2020-08-30] MEDS: iohexoL 350 MG/ML 100 ML INFUS..BTL IV (17:06)
== END 2020-08-30 19:07 | disposition home or self-care (01) ==
PROVIDERS: Nurse Practitioner Family; Emergency Provider Emergency Medicine; PCP Nurse Practitioner Family
DX: K58.0 Irritable bowel syndrome with diarrhea (principal); R10.2 Pelvic and perineal pain; E11.9 Type 2 diabetes mellitus without complications; I10 Essential (primary) hypertension; K21.9 Gastro-esophageal reflux disease without esophagitis; F17.210 Nicotine dependence, cigarettes, uncomplicated; Z90.49 Acquired absence of other specified parts of digestive tract; Z79.84 Long term (current) use of oral hypoglycemic drugs; Z79.899 Other long term (current) drug therapy
CPT/HCPCS: 36415; 74177; 80048; 80076; 81003; 83690; 85025; 99283; 99284; Q9967

== ENCOUNTER → 2020-09-09 13:38 | Outpatient (BNVA) | payer MEDICARE, SELFPAY | PROVIDERS: PCP Internal Medicine; Referring Provider Internal Medicine; Visit Provider Nurse Practitioner | DX: K90.89 Other intestinal malabsorption (principal); D12.6 Benign neoplasm of colon, unspecified; K21.9 Gastro-esophageal reflux disease without esophagitis; K58.0 Irritable bowel syndrome with diarrhea; I10 Essential (primary) hypertension; R74.8 Abnormal levels of other serum enzymes; Z90.49 Acquired absence of other specified parts of digestive tract; Z79.899 Other long term (current) drug therapy | CPT/HCPCS: 99212 ==

== ENCOUNTER 2020-10-24 10:27 | Outpatient (REF) | payer MEDICARE, SELFPAY ==
[2020-10-24 13:55] LABS: Amylase 50 U/L (28-100); Lipase 24 U/L (8-78)
== END 2020-10-24 10:28 | disposition home or self-care (01) ==
LOC: HO.LAB 10:27
PROVIDERS: PCP Internal Medicine; Referring Provider Internal Medicine; Visit Provider Nurse Practitioner
DX: K90.89 Other intestinal malabsorption (principal); R74.8 Abnormal levels of other serum enzymes; D12.6 Benign neoplasm of colon, unspecified; K29.40 Chronic atrophic gastritis without bleeding; K21.9 Gastro-esophageal reflux disease without esophagitis; K58.0 Irritable bowel syndrome with diarrhea; R10.33 Periumbilical pain; R41.3 Other amnesia
CPT/HCPCS: 36415; 82150; 83690; Q3014

== ENCOUNTER 2020-10-27 10:31 | Outpatient (REF) | payer MEDICARE, SELFPAY ==
--- NOTE | 2020-10-27 17:50 | MHC.AU.AHA ---
Adult Audiological Evaluation Date of Visit: 10/27/20 Comparative Sociology Professor Used: Bangladeshi- In Person Reason for Appointment: Audiological re-evaluation to monitor the status of Ms. Romeo's hearing loss. She feels her hearing is gradually getting worse. Her daughter notes that she is taking a new blood pressure medication and a new medication for her stomach. Otherwise there have been not changes to Ms. Romeo's medical history. Previous Hearing Test [place] [facility] [place]- Mild/moderate sloping to moderately severe sensorineural hearing loss bilaterally. Medical History: Medical History: Diabetes, High Blood Pressure Hearing Instrument History- Right Ear: Solar Sales: [employer] Model: Veto 1600 HS R Serial Number: [id number] Battery Size: Rechargeable Repair Warranty: 01/22/2023 Loss and Damage Warranty: 01/22/2023 Dispensed By: [facility] Date of Fittin02/15/2020 Hearing Instrument History- Left Ear: Solar Sales: [employer] Model: Veto 1600 HS R Serial Number: [id number] Battery Size: Rechargeable Warranty: 12/11/2022 Loss and Damage Warranty: 12/11/2022 Dispensed By: [facility] Date of Fittin11/23/2019 Otoscopy: Right Ear: Unremarkable Left Ear: Unremarkable Tympanometry: Tympanometry performed due to: To assess integrity of the middle ear system Right Ear: Hypercompliant Middle Ear System (Type Ad) Left Ear: Hypercompliant Middle Ear System (Type Ad) Hearing Evaluation: Transducer(s) Used: Insert Earphones, Bone Conduction Method: Conventional Audiometry Stimuli Used: Pure Tones Right Ear: Description of Hearing: Moderate sloping to moderately severe sensorineural hearing loss from 250-8000 Hz. Left Ear: Description of Hearing: Moderately severe sensorineural hearing loss from 250-8000 Hz. Speech Recognition Threshold (SRT): Method Used: Recorded Lists Stimuli Used: Spondee Words Right Ear: 65 dBHL Left Ear: 60 dBHL Word Discrimination: Method: Recorded Lists Word Lists Used: Lista Bisil?bica (Bangladeshi) Right Ear: 76% at 90 dBHL Left Ear: 92% at 90 dBHL Comparison: Compared to the most recent evaluation: Hearing is stable. Word discrimination scores improved today compared to testing from 2019. Recommendations: Audiological re-evaluation in one year. Hearing aid maintenance performed today. Hearing aids reprogrammed to today's audiogram. Left aid has a crack in it and was sent to [facility] for repair. Diagnosis: Primary Diagnosis: H90.3 Bilateral Sensorineural Hearing Loss Services Performed: Comprehensive Audiological Evaluation (CPT 11331) Tympanometry (CPT 34148) Signature: Provider: Starr Martínez, CCC-A
== END 2020-10-27 10:32 | disposition home or self-care (01) ==
LOC: HO.SH 10:31
PROVIDERS: Visit Provider Internal Medicine
DX: H90.3 Sensorineural hearing loss, bilateral (principal)
CPT/HCPCS: 92557; 92567

== ENCOUNTER 2020-11-02 12:03 | Outpatient (REF) | payer MEDICARE, SELFPAY ==
--- NOTE | ~2020-11-02 | XR_ITS ---
EXAMINATION: XR CERVICAL SPINE CLINICAL INFORMATION: Neck pain. COMPARISON: Cervical spine CT dated 03/03/2020. TECHNIQUE: AP, lateral, open-mouth, and bilateral oblique views of the cervical spine. FINDINGS: The cervical lordosis is maintained. Grade 1 anterolisthesis of C4 on C5, unchanged. No acute fracture or subluxation. No loss of vertebral body height. Multilevel loss of intervertebral disc height with endplate osteophytes, unchanged. Prominent multilevel bilateral facet arthropathy and neural foraminal stenosis is unchanged. Normal atlantoaxial alignment. Unremarkable prevertebral soft tissues. XR/XR cervical spine 4V IMPRESSION: Grade 1 anterolisthesis of C4 on C5, unchanged. Multilevel degenerative disc disease and bilateral facet arthropathy with multilevel bilateral neural foraminal stenosis appears similar when compared to the prior CT.
== END 2020-11-02 12:04 | disposition home or self-care (01) ==
LOC: HO.XRAY 12:03
PROVIDERS: Visit Provider Internal Medicine
DX: M54.2 Cervicalgia (principal)
CPT/HCPCS: 72050

== ENCOUNTER 2020-11-11 14:34 | Outpatient (REF) | payer MEDICARE, SELFPAY ==
--- NOTE | ~2020-11-11 | MR_ITS ---
EXAMINATION: MRI BRAIN WITHOUT CONTRAST CLINICAL INFORMATION: 75-year-old with amnesia and worsening gait with urinary incontinence. COMPARISON: 02/24/2018 CT brain. TECHNIQUE: Multiplanar multisequence MR imaging of the brain was done. FINDINGS: BRAIN VOLUME: Mild generalized diffuse nonspecific brain parenchymal volume loss is noted. STRUCTURAL: Minimal tonsillar ectopia at the foramen magnum, which is an anatomic variant. BRAIN AND MENINGES: DWI imaging demonstrates no restricted diffusion to suggest acute or subacute cerebral ischemia. There are scattered small patchy zones of FLAIR/T2 signal hyperintensity in the subcortical and deeper white matter of the cerebral hemispheres bilaterally which are nonspecific findings but likely reflect zones of chronic ischemic microangiopathy in a patient of this age. There is a 3 mm T1 bright/FLAIR bright linear signal intensity along the tentorium on the right, best visualized on image 10 of series 8. 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 Remainder of the brain is normal in signal intensity. There is no evidence for hemorrhage, hemosiderin staining or abnormal mineral deposition on gradient echo imaging. No extra-axial fluid collections, space-occupying process or mass effect. VENTRICLES AND SUBARACHNOID SPACES: The ventricular system and subarachnoid spaces are consistent with mild generalized volume loss without hydrocephalus. ORBITAL STRUCTURES: Bilateral lens extractions are noted. Otherwise unremarkable within the limitations of the exam. VASCULAR: Signal voids are noted in the visualized major intracranial vessels. SINUSES AND OSSEOUS STRUCTURES: Osseous marrow signal intensity is remarkable for some sclerotic changes in the left mandibular condyle, probably degenerative. There is some mucosal thickening in the right maxillary sinus and both ethmoid sinuses. MR/MR head/brain wo con IMPRESSION: 1. No evidence for NPH, acute or subacute infarct, hemorrhage, space-occupying process or mass effect. 2. Probable mild chronic ischemic microangiopathy in the white matter of both cerebral hemispheres. 3. Other incidental findings as discussed above.
== END 2020-11-11 14:35 | disposition home or self-care (01) ==
LOC: HO.MRI 14:34
PROVIDERS: PCP Internal Medicine; Visit Provider Internal Medicine
DX: R41.3 Other amnesia (principal)
CPT/HCPCS: 70551

== ENCOUNTER 2020-11-25 10:08 | Outpatient (REF) | payer MEDICARE, SELFPAY ==
--- NOTE | 2020-11-25 10:36 | MHC.AU.HFU ---
Hearing Instrument Follow-Up- Binaural Date of Visit: 11/25/20 Receptionist Scheduler Used: Greenlandic- In Person Right Ear: Club Former: [employer] Model: Veto 1600 HS R Serial Number: [id number] Repair Warranty: 01/22/2023 Loss and Damage Warranty: 01/22/2023 Battery Size: Rechargeable Type of Wax Guard: HEAR CLEAR Dispensed By: [facility] Date of Fittin02/15/2020 Left Ear: Club Former: [employer] Model: Veto 1600 HS R Serial Number: [id number] Repair Warranty: 12/11/2022 Loss and Damage Warranty: 12/11/2022 Battery Size: Rechargeable Type of Wax Guard: HEAR CLEAR Dispensed By: [facility] Date of Fittin11/23/2019 Follow-Up Summary: Left hearing aid returned from repair. It was paired back to the right hearing aid in [employer]. Patient was pleased with the sound of the instruments and did not feel any changes were needed. Recommendations: Hearing instrument follow-up or maintenance as needed. Please contact our clinic with any questions or concerns. Diagnosis Code(s): Primary Diagnosis: H90.3 Bilateral Sensorineural Hearing Loss Signature: Provider: Starr Manuel, CCC-A
== END 2020-11-25 10:09 | disposition home or self-care (01) ==
LOC: HO.HAP 10:08
PROVIDERS: Visit Provider Internal Medicine
DX: Z13.89 Encounter for screening for other disorder (principal)

== ENCOUNTER → 2020-12-09 10:28 | Outpatient (BNVA) | payer MEDICARE, SELFPAY | PROVIDERS: PCP Internal Medicine; Referring Provider Internal Medicine; Visit Provider Nurse Practitioner | DX: K90.89 Other intestinal malabsorption (principal); K21.9 Gastro-esophageal reflux disease without esophagitis; L03.90 Cellulitis, unspecified; D12.6 Benign neoplasm of colon, unspecified; D22.9 Melanocytic nevi, unspecified | CPT/HCPCS: 99212 ==

== ENCOUNTER → 2020-12-22 10:47 | Outpatient (BNVA) | payer MEDICARE, SELFPAY | PROVIDERS: PCP Internal Medicine; Referring Provider Emergency Medicine; Visit Provider Surgery | DX: S81.802D Unspecified open wound, left lower leg, subsequent encounter (principal) | CPT/HCPCS: 99202 ==

== ENCOUNTER 2020-12-27 13:47 | Emergency (ER) | payer MEDICARE, SELFPAY ==
--- NOTE | ~2020-12-27 | XR_ITS ---
EXAMINATION: XR TIBIA AND FIBULA, LEFT CLINICAL INFORMATION: Wound left anterior stubbs. COMPARISON: None TECHNIQUE: AP and lateral views of the left tibia and fibula were obtained. FINDINGS: Bone alignment is normal. No fracture or dislocation is seen. Joint spaces are normal. There is a small amount of air seen in the soft tissues anterior to the lower stubbs. No radiopaque soft tissue foreign body is seen. No x-ray evidence of osteomyelitis is seen. XR/XR tibia fibula LT 2V IMPRESSION: Small amount of air in the soft tissues anterior to the lower stubbs. No osteomyelitis or soft tissue foreign body seen.
[2020-12-27 14:43] VITALS: BP 143/69; PULSE 72; RESP 18; TEMP 36.9; O2SAT 100; BMI 26.0
--- NOTE | 2020-12-27 16:16 | ED_ITS ---
HPI - Wound/Laceration General Chief Complaint: Wound/Laceration Stated Complaint: wound check Time Seen by Provider: 12/27/20 15:00 Source: patient and family Mode of arrival: ambulatory Limitations: language barrier (Luxembourger-speaking) History of Present Illness HPI narrative: 75-year-old female presenting with her daughter at bedside they are both Luxembourger-speaking presenting to the ED with concerns for re-evaluation of a wound to her left stubbs that occurred on 12/06/2020 where she strike her stubbs on her [place] and she sustained a small abrasion/laceration to her daughter. She was placed on antibiotics for a 10 day course then she followed up with Dr. Flower on 12/22/2020 and was instructed to follow-up with wound care and have not hear it dry dressings placed daily although her daughter missed her appoi ntment therefore she brought her here for further evaluation treatment because she was nervous that she missed her mother's appointment. They report that she has clear drainage and they were concerned that she may need more treatment. She denies any other symptoms complaints or concerns at this time. Related Data Home Medications Medication Instructions Recorded Confirmed atorvastatin 40 mg tablet 40 mg PO QPM 01/29/20 01/29/20 clonazepam 1 mg tablet 1 mg PO BID 01/29/20 01/29/20 duloxetine 60 mg capsule,delayed 60 mg PO DAILY 01/29/20 01/29/20 release gabapentin 300 mg capsule 600 mg PO QID cap 01/29/20 01/29/20 alcohol swabs pad TOPICAL TID 09/09/20 calcium carbonate 300 mg (750 mg) 1 tab PO BID 09/09/20 chewable tablet ferrous sulfate 325 mg (65 mg 325 mg PO QAM 09/09/20 iron) tablet gabapentin 600 mg tablet 600 mg PO 09/09/20 lisinopril 40 mg tablet 40 mg PO QAM 09/09/20 metformin 500 mg tablet 500 mg PO BID 09/09/20 metoprolol tartrate 50 mg tablet 50 mg PO BID 09/09/20 multivitamin 1 tab PO QAM 09/09/20 trazodone 150 mg tablet 150 mg PO BEDTIME PRN 09/09/20 Previous Rx's Medication Instructions Recorded amlodipine 5 mg tablet 5 mg PO DAILY 30 Days #30 tab 09/09/20 pantoprazole 20 mg tablet,delayed 20 mg PO QAM #90 tab 09/09/20 release lipase 3,000-protease 1 cap PO .q8am, 12pm, 3pm, 6pm 30 10/24/20 9,500-amylase 15,000 unit capsule, Days #120 cap delayed rel (Creon) dicyclomine 20 mg tablet 20 mg PO QID #120 tab 11/17/20 sucralfate 100 mg/mL oral 30 ml PO TID 30 Days #2700 ml 12/09/20 suspension sulfamethoxazole 800 1 tab PO BID 10 Days #20 tab 12/09/20 mg-trimethoprim 160 mg tablet (Bactrim DS) cephalexin 500 mg capsule 500 mg PO Q6H 10 Days #40 cap 12/27/20 doxycycline monohydrate 100 mg 100 mg PO BID 10 Days #20 cap 12/27/20 capsule Allergies Allergy/AdvReac Type Severity Reaction Status Date / Time morphine [MORPHINE] Allergy Intermediate GI Verified 12/27/20 14:43 UPSET,TACHYCARDIA clams AdvReac Intermediate GI UPSET Verified 12/27/20 14:43 rosiglitazone [From [facility]ANDIA] AdvReac Unknown PEDAL EDEMA Verified 12/27/20 14:43 clam Allergy Unknown unknown Uncoded 12/22/20 11:12 Review of Systems Review of Systems: Constitutional : No Fever, No Chills, Cardiovascular : No Chest Pain, No SOB Respiratory : No Dyspnea Gastrointestinal : No abdominal pain Musculoskeletal : No Joint Swelling Skin : positive skin wound, no laceration, No Foreign bodies, No rash, No surrounding erythema Neuro : No Weakness, No Numbness/tingling Psych : No SI/HI/thoughts of self injury Yes all other systems are reviewed and are negative [facility] Past Medical History Attestation statement: The following information was validated with the patient. Medical History Diabetes HTN (hypertension) Incisional hernia Sebaceous cyst of axilla Surgical History History of back surgery History of colonoscopy Hx of cholecystectomy Hx of endoscopy Status post right knee replacement Family History Family History Father No problems noted. Mother No problems noted. Social History Social History Alcohol intake: never Cigarettes Per Day: 5 Advance Directives: No Advance Directives Information Provided: No Physical Exam Vital Signs: Vital Signs: Last Vital Signs Temp 98.4 F 12/27/20 14:43 Pulse 72 12/27/20 14:43 Resp 18 12/27/20 14:43 BP 143/69 H 12/27/20 14:43 Pulse Ox 100 12/27/20 14:43 Body Mass Index 26.0 vital signs have been reviewed as normal and appeared to be correct. Blood pressure hypertensive 147/76 Heart rate normal. Respiration rate normal. Temperature normal. Oxygen saturation normal. Appearance: Alert. Oriented X3. No acute distress. Head: Normal external exam. Normocephalic. Atraumatic. Eyes: PERRLA. EOMI. Conjunctiva and sclera normal. Eyelids normal. ENT: Pharynx normal. Uvula midline. Moist mucous membranes. Neck: Normal inspection. Neck supple. FROM. CVS: Normal heart rate and rhythm. Respiratory: No respiratory distress. Painless inspiration. Skin: Skin warm and dry. Normal skin color. Normal skin turgor. No rashes/lesions/lacerations noted. Extremities: To the left stubbs anterior aspect pt an oval 1 cm in diameter wound with bloody dischareg noted. No surrounding erythema/streaking/induration/flutuance or purulent drainage noted. No lower extremity edema. all other Extremities exhibit normal range of motion and nontender. Neuro: Oriented X 3. No motor deficit. No sensory deficit. Reflexes normal. Normal steady gait. No focal neuro deficits noted. Vascular: + radial pulses/+ 2 distal pedal pulses/+2 dorsalis pedis b/l. Normal cap refill. No cyanosis noted to upper extremity nails and lower extremity toes nails. Course Course Course Narrative: 75-year-old female presenting to a wound that she sustained over a month ago she was already treated with a 10 day course of antibiotic she is presenting today because she missed her follow-up with the wound clinic that she was instructed to go by the general surgeon Dr. Flower he just seen her on 12/22/2020. He instructed her to continue not adherent dry dressings. On exam patient was noted to have hematoma noted to the wound therefore I manually expressed out the hematoma and irrigated the wound. No surrounding erythema/streaking/induration/fluctuance or purulent drainage noted. X-ray obtained and pending results. If x-ray is negative for any osteo or any other acute processes will DC home with another course of antibiotics and instructions to follow-up with wound clinic. Patient and daughter at bedside understand agree this plan. MDM - Wound/Laceration Medical Records Attestation: I reviewed the patient's medical records. Imaging Data Left tibia/fibula x-ray: Attestation: I personally reviewed and interpreted this imaging study as follows: Radiologist's impression: FINDINGS: Bone alignment is normal. No fracture or dislocation is seen. Joint spaces are normal. There is a small amount of air seen in the soft tissues anterior to the lower tsubbs. No radiopaque soft tissue foreign body is seen. No x-ray evidence of osteomyelitis is seen.? XR/XR tibia fibula LT 2V IMPRESSION: Small amount of air in the soft tissues anterior to the lower stubbs. No osteomyelitis or soft tissue foreign body seen. Discharge Plan Discharge Clinical Impression: Wound of left lower extremity Patient Disposition: Home, Self-Care Instructions: Wound Healing and Your Diet (ED), Acute Wounds (ED) Prescriptions: New doxycycline monohydrate 100 mg capsule 100 mg PO BID 10 Days Qty: 20 RF: 0 cephalexin 500 mg capsule 500 mg PO Q6H 10 Days Qty: 40 RF: 0 No Action dicyclomine 20 mg tablet 20 mg PO QID Qty: 120 RF: 1 atorvastatin 40 mg tablet 40 mg PO QPM RF: 0 clonazepam 1 mg tablet 1 mg PO BID RF: 0 duloxetine 60 mg capsule,delayed release(DR/EC) 60 mg PO DAILY RF: 0 gabapentin 300 mg capsule 600 mg PO QID RF: 0 Creon 3,000-9,500- 15,000 unit capsule,delayed release(DR/EC) 1 cap PO .q8am, 12pm, 3pm, 6pm 30 Days Qty: 120 RF: 6 sucralfate 100 mg/mL suspension 30 ml PO TID 30 Days Qty: 2700 RF: 6 sulfamethoxazole-trimethoprim [Bactrim DS] 800-160 mg tablet 1 tab PO BID 10 Days Qty: 20 RF: 0 lisinopril 40 mg tablet 40 mg PO QAM RF: 0 metoprolol tartrate 50 mg tablet 50 mg PO BID RF: 0 trazodone 150 mg tablet 150 mg PO BEDTIME PRN (Reason: insomnia) RF: 0 ferrous sulfate 325 mg (65 mg iron) tablet 325 mg PO QAM RF: 0 alcohol swabs Pads, Medicated topical TID RF: 0 calcium carbonate 300 mg (750 mg) tablet,chewable 1 tab PO BID RF: 0 metformin 500 mg tablet 500 mg PO BID RF: 0 gabapentin 600 mg tablet 600 mg PO RF: 0 multivitamin Tablet 1 tab PO QAM RF: 0 amlodipine 5 mg tablet 5 mg PO DAILY 30 Days Qty: 30 RF: 6 pantoprazole 20 mg tablet,delayed release (DR/EC) 20 mg PO QAM Qty: 90 RF: 1 Referrals: [facility] [Provider Group] - 2 days Monster Geronimo MD [Primary Care Provider] - 2 days Print Language: Luxembourger
== END 2020-12-27 17:16 | disposition home or self-care (01) ==
PROVIDERS: Emergency Provider Emergency Medicine; PCP Internal Medicine
DX: M79.605 Pain in left leg (principal); Z48.00 Encounter for change or removal of nonsurgical wound dressing; Z79.899 Other long term (current) drug therapy
CPT/HCPCS: 73590; 99283

== ENCOUNTER 2021-01-02 08:17 | Outpatient (RCR) | payer MEDICARE, SELFPAY | END 2021-01-30 16:07 | disposition home or self-care (01) | LOC: HO.WCC 08:17 | PROVIDERS: PCP Internal Medicine; Visit Provider Physician Assistant | DX: Z09 Encounter for follow-up examination after completed treatment for conditions other than malignant neoplasm (principal); I87.302 Chronic venous hypertension (idiopathic) without complications of left lower extremity; E11.51 Type 2 diabetes mellitus with diabetic peripheral angiopathy without gangrene; E11.65 Type 2 diabetes mellitus with hyperglycemia; I10 Essential (primary) hypertension; F17.210 Nicotine dependence, cigarettes, uncomplicated; Z71.6 Tobacco abuse counseling; Z87.2 Personal history of diseases of the skin and subcutaneous tissue | CPT/HCPCS: 11042; 97597; 99212; 99213 ==

== ENCOUNTER 2021-02-03 10:34 | Outpatient (REF) | payer MEDICARE, SELFPAY ==
--- NOTE | ~2021-02-03 | US_ITS ---
EXAMINATION: US VENOUS ULTRASOUND WITH DOPPLER LOWER EXTREMITY, LEFT CLINICAL INFORMATION: Pain and swelling left lower extremity. Assess for occult DVT. COMPARISON: Left leg venous ultrasound with Doppler 04/18/2017. TECHNIQUE: Ultrasound of the deep veins is performed from the hip to the calf with compression sonography and color and pulse Doppler assessment. Spectral analysis with color-flow imaging is performed. FINDINGS: There is normal venous compression and respiratory variation and augmented flow. The visualized common femoral vein, superficial femoral vein, profunda femoral vein, popliteal vein, and the trifurcation region shows no evidence of deep venous thrombosis. No popliteal fossa cyst demonstrated. US/US venous duplex LE LT IMPRESSION: No DVT demonstrated in the left lower extremity.
== END 2021-02-03 10:35 | disposition home or self-care (01) ==
LOC: HO.US 10:34
PROVIDERS: PCP Internal Medicine; Visit Provider Internal Medicine
DX: M79.89 Other specified soft tissue disorders (principal)
CPT/HCPCS: 93971

== ENCOUNTER 2021-02-07 11:32 | Outpatient (REF) | payer MEDICARE, SELFPAY | END 2021-02-07 11:33 | disposition home or self-care (01) | LOC: HO.HAP 11:32 | PROVIDERS: Visit Provider Internal Medicine | DX: Z13.89 Encounter for screening for other disorder (principal) ==

== ENCOUNTER 2021-02-14 12:10 | Outpatient (REF) | payer MEDICARE, SELFPAY | END 2021-02-14 12:11 | disposition home or self-care (01) | LOC: HO.HAP 12:10 | PROVIDERS: Visit Provider Internal Medicine | DX: Z13.89 Encounter for screening for other disorder (principal) ==

== ENCOUNTER 2021-03-01 11:27 | Outpatient (REF) | payer MEDICARE, SELFPAY | END 2021-03-01 11:28 | disposition home or self-care (01) | LOC: HO.HAP 11:27 | PROVIDERS: Visit Provider Internal Medicine | DX: Z13.89 Encounter for screening for other disorder (principal) ==

== ENCOUNTER → 2021-03-06 11:46 | Outpatient (BNVA) | payer MEDICARE, SELFPAY | PROVIDERS: PCP Internal Medicine; Referring Provider Internal Medicine; Visit Provider Nurse Practitioner | DX: K90.89 Other intestinal malabsorption (principal); K21.9 Gastro-esophageal reflux disease without esophagitis; K64.9 Unspecified hemorrhoids; D22.9 Melanocytic nevi, unspecified; R10.33 Periumbilical pain; R74.8 Abnormal levels of other serum enzymes | CPT/HCPCS: 99212 ==

== ENCOUNTER 2021-03-08 12:54 | Outpatient (REF) | payer MEDICARE, SELFPAY ==
--- NOTE | ~2021-03-08 | MM_ITS ---
EXAMINATION: BONE DENSITOMETRY CLINICAL INDICATION: Encounter for screening for osteoporosis. COMPARISON: Previous BD dated 02/03/2019 and baseline BD dated 01/10/2007. TECHNIQUE: Using a [employer] DXA System (software version: 13.1) manufactured by [employer], dual-energy x-ray absorptiometry was performed of the lumbar spine and left hip. The images are of good technical quality. Summary results are attached. FINDINGS: AP SPINE L1-L2 (excluding L3 and L4): The data of L1-L4 has been changed to exclude the L3 and L4 vertebral bodies, because hardware and degenerative changes at these levels may cause overestimation of lumbar spine density. Current: BMD 1.030 g/cm2, Z-score 0.9, T-score -1.1, osteopenia, 5.3% decrease from previous, 10.3% increase from baseline (<5% change is not significant). Prior: BMD 1.088 g/cm2. Baseline: BMD 0.934 g/cm2. LEFT FEMUR, NECK: Current: BMD 0.852 g/cm2, Z-score 0.8, T-score -1.3, osteopenia. Prior: BMD 0.874 g/cm2. Baseline: BMD 0.858 g/cm2. LEFT FEMUR, TOTAL: Current: BMD 1.015 g/cm2, Z-score 2.0, T-score 0.1, normal, 4.3% decrease from previous, 8.8% decrease from baseline (<5% change is not significant). Prior: BMD 1.061 g/cm2. Baseline: BMD 1.113 g/cm2. IDENTIFIED RISK FACTORS: Menopause, bilateral oophorectomy, hysterectomy, anticonvulsant, height loss, history of fracture (adult), low calcium intake, osteoporosis, tobacco use (current smoker). HISTORY OF FRACTURE: Spine reported by patient. MEDICATIONS: Calcium supplements or multivitamin, vitamin D. MM/XR DEXA axial skeleton IMPRESSION: 1. DIAGNOSIS: Osteopenia based on the lowest T-score value of -1.3 in the femoral neck applying World Health Organization criteria. 2. 10-YEAR FRACTURE RISK PREDICTION, FRAX: Major osteoporotic fracture (clinical spine, forearm, hip or shoulder) 10.1%. Hip fracture 2.7%. 3. Treatment Recommendations: NOF guidelines recommend consideration for treatment in postmenopausal women and men age 50 and older presenting with the following: -A hip or vertebral (clinical or morphometric) fracture. -T-score less than or equal to -2.5 at the femoral neck or spine after appropriate evaluation to exclude secondary causes. -Low bone mass at the hip or spine and a 10-year fracture probability by FRAX of greater than or equal to 3% for hip fracture or greater than or equal to 20% for major osteoporotic fracture based on the [place] adapted WHO algorithm. 4. Other Recommendations: All treatment decisions require clinical judgment and consideration of individual patient factors, including patient preferences, comorbidities, previous drug use, risk factors not captured in the FRAX model (e.g. frailty, falls, vitamin D deficiency, increased bone turnover, interval significant decline in bone density) and possible under or overestimation of fracture risk by FRAX. Additional medical evaluation for secondary cause of low bone mineral density may be appropriate. FUTURE SCAN RECOMMENDATION: People with diagnosed cases of osteoporosis or at high risk for fracture should have regular bone mineral density tests. For patients eligible for Medicare, routine testing is allowed once every 2 years. The testing frequency can be increased to one year for patients who have rapidly progressing disease, those who are receiving or discontinuing medical therapy to restore bone mass, or have additional risk factors.
== END 2021-03-08 12:55 | disposition home or self-care (01) ==
LOC: HO.MAMMO 12:54
PROVIDERS: Visit Provider Internal Medicine
DX: Z13.820 Encounter for screening for osteoporosis (principal); M85.80 Other specified disorders of bone density and structure, unspecified site; Z78.0 Asymptomatic menopausal state; Z79.899 Other long term (current) drug therapy; Z90.722 Acquired absence of ovaries, bilateral
CPT/HCPCS: 77080

== ENCOUNTER 2021-04-25 12:52 | Outpatient (REF) | payer MEDICARE, SELFPAY ==
--- NOTE | ~2021-04-25 | MM_ITS ---
EXAMINATION: MM SCREENING DIGITAL BREAST TOMOSYNTHESIS, BILATERAL CLINICAL INFORMATION: Screening. Asymptomatic. The lifetime risk of breast cancer based on the Tyrer-Cuzick Model is 2%. COMPARISON: Mammography: 04/08/2020, 01/15/2019, 12/31/2017 TECHNIQUE: Digital breast tomosynthesis is performed in both the craniocaudal and mediolateral oblique views along with computer-aided detection (CAD). Synthesized 2D images are generated from the tomosynthesis. FINDINGS: There are scattered areas of fibroglandular density (ACR BI-RADS breast composition Category b). There is scattered bilateral stable nodularity and minor parenchymal asymmetries similar to prior studies. There is no developing density or interval mass or architectural abnormality. No abnormal calcifications. The axilla and skin contours are unremarkable. No significant changes. MM/MM tomosynthesis screening BI IMPRESSION: No significant changes from prior studies. ASSESSMENT: BI-RADS 2: Benign RECOMMENDATION: Routine annual mammography screening. This patient's information was entered into a reminder system with a target due date for their next mammogram.
== END 2021-04-25 12:53 | disposition home or self-care (01) ==
LOC: HO.MAMMO 12:52
PROVIDERS: PCP Internal Medicine; Visit Provider Internal Medicine
DX: Z12.31 Encounter for screening mammogram for malignant neoplasm of breast (principal)
CPT/HCPCS: 77063; 77067

== ENCOUNTER 2021-08-17 12:13 | Outpatient (REF) | payer MEDICARE, SELFPAY ==
--- NOTE | ~2021-08-17 | XR_ITS ---
EXAMINATION: KNEE X-RAY CLINICAL INFORMATION: Post knee replacement COMPARISON: Previous x-ray May 2015 TECHNIQUE: Standing AP view of both knees and lateral and sunrise view of the right knee FINDINGS: Right: There is a 3 component right knee replacement in satisfactory position. No fracture, dislocation or x-ray evidence of loosening is seen. There is a large joint effusion. Standing AP view of the left knee demonstrates medial femoral tibial joint space narrowing and degenerative meniscal calcification. XR/XR knee RT 2V IMPRESSION: Satisfactory appearance of right knee replacement. Large right knee joint effusion.
--- NOTE | ~2021-08-17 | XR_ITS ---
EXAMINATION: KNEE X-RAY CLINICAL INFORMATION: Post knee replacement COMPARISON: Previous x-ray May 2015 TECHNIQUE: Standing AP view of both knees and lateral and sunrise view of the right knee FINDINGS: Right: There is a 3 component right knee replacement in satisfactory position. No fracture, dislocation or x-ray evidence of loosening is seen. There is a large joint effusion. Standing AP view of the left knee demonstrates medial femoral tibial joint space narrowing and degenerative meniscal calcification. XR/XR knee standing BI IMPRESSION: Satisfactory appearance of right knee replacement. Large right knee joint effusion.
== END 2021-08-17 12:14 | disposition home or self-care (01) ==
LOC: HO.HOSX 12:13
PROVIDERS: Visit Provider Orthopaedic Surgery
DX: M25.561 Pain in right knee (principal); M54.16 Radiculopathy, lumbar region
CPT/HCPCS: 73560; 73565; 99202

== ENCOUNTER → 2021-08-31 11:03 | Outpatient (BNVA) | payer OTHER, SELFPAY | PROVIDERS: PCP Internal Medicine; Visit Provider Internal Medicine | DX: M54.16 Radiculopathy, lumbar region (principal); M48.061 Spinal stenosis, lumbar region without neurogenic claudication; M96.1 Postlaminectomy syndrome, not elsewhere classified | CPT/HCPCS: 99202 ==

== ENCOUNTER 2021-09-04 14:20 | Outpatient (REF) | payer OTHER, SELFPAY ==
[2021-09-04 15:06] LABS: Appearance Urine CLEAR; Color Urine YELLOW; Glucose Urine UA 100 MG/DL (NEG); Leukocyte Esterase Urine NEG (NEG); Nitrite Urine NEG (NEG); UACC Culture Trigger NO; Urine Blood TRACE (NEG); Urine Ketones NEG (NEG); Urine Protein NEG (NEG-TRACE)
[2021-09-04 15:24] LABS: Bacteria Urine 1+ /LPF; Squamous Epithelial Cell Urine TRACE /LPF; WBC Urine 0-2 /HPF (0-4)
== END 2021-09-04 14:21 | disposition home or self-care (01) ==
LOC: HO.LAB 14:20
PROVIDERS: PCP Internal Medicine; Visit Provider Nurse Practitioner
DX: R10.33 Periumbilical pain (principal); R30.0 Dysuria; K21.9 Gastro-esophageal reflux disease without esophagitis; K90.89 Other intestinal malabsorption; K64.9 Unspecified hemorrhoids
CPT/HCPCS: 81001; 81003; 99212

== ENCOUNTER → 2021-10-17 10:49 | Outpatient (BNVA) | payer OTHER, SELFPAY | PROVIDERS: PCP Internal Medicine; Visit Provider Nurse Practitioner | DX: K58.9 Irritable bowel syndrome, unspecified (principal); R10.11 Right upper quadrant pain | CPT/HCPCS: 99212 ==

== ENCOUNTER 2021-11-07 10:42 | Outpatient (REF) | payer OTHER, SELFPAY ==
--- NOTE | ~2021-11-07 | US_ITS ---
EXAMINATION: US ABDOMEN COMPLETE CLINICAL INFORMATION: Right upper quadrant pain. COMPARISON: CT abdomen and pelvis 08/30/2020. Ultrasound abdomen 05/16/2017. Ultrasound renals only 10/06/2015. TECHNIQUE: Real-time imaging of the abdominal viscera. FINDINGS: PANCREAS: Normal. Pancreatic duct measures 0.16 cm. And is normal. ABDOMINAL AORTA: The proximal, mid, and distal segments are normal in caliber. INFERIOR VENA CAVA: Visualized portions are normal. LIVER: Normal. The liver is normal in size. The liver contour is normal. Parenchymal echogenicity is normal. No focal hepatic lesion. There is no intrahepatic biliary duct dilatation seen. GALLBLADDER: Surgically absent. COMMON BILE DUCT: Normal in caliber measuring 1.0 cm in diameter. RIGHT KIDNEY: Normal. No hydronephrosis. No renal calculi or focal parenchymal lesions. The kidney measures 10.4 cm in maximum dimension. LEFT KIDNEY: Normal. No hydronephrosis. No renal calculi or focal parenchymal lesions. The kidney measures 9.8 cm in maximum dimension. SPLEEN: Normal. The spleen measures 1.7 cm in maximum dimension. FREE FLUID: None. US/US abdomen complete IMPRESSION: Unremarkable complete abdomen ultrasound. The gallbladder has been surgically removed.
== END 2021-11-07 10:43 | disposition home or self-care (01) ==
LOC: HO.US 10:42
PROVIDERS: Visit Provider Emergency Medicine
DX: R10.84 Generalized abdominal pain (principal)
CPT/HCPCS: 76700

== ENCOUNTER 2021-12-04 10:40 | Outpatient (REF) | payer OTHER, SELFPAY | END 2021-12-04 10:41 | disposition home or self-care (01) | LOC: HO.US 10:40 | PROVIDERS: Visit Provider Nurse Practitioner | DX: Z13.89 Encounter for screening for other disorder (principal) ==

== ENCOUNTER → 2021-12-08 10:04 | Outpatient (BNVA) | payer OTHER, SELFPAY | PROVIDERS: PCP Internal Medicine; Visit Provider Nurse Practitioner | DX: Z13.89 Encounter for screening for other disorder (principal) ==

== ENCOUNTER 2022-02-22 15:22 | Outpatient (REF) | payer OTHER, SELFPAY ==
--- NOTE | ~2022-02-22 | XR_ITS ---
EXAMINATION: XR CHEST CLINICAL INFORMATION: Wheezing COMPARISON: 04/10/2018 chest radiograph. TECHNIQUE: 2 views of the chest were obtained. FINDINGS: No significant abnormality is noted involving the heart, lungs, mediastinum, bony thorax or soft tissues. XR/XR chest 2V IMPRESSION: No acute cardiopulmonary process.
== END 2022-02-22 15:23 | disposition home or self-care (01) ==
LOC: HO.XRAY 15:22
PROVIDERS: Visit Provider Nurse Practitioner
DX: K58.9 Irritable bowel syndrome, unspecified (principal); K21.9 Gastro-esophageal reflux disease without esophagitis; K90.89 Other intestinal malabsorption; K64.9 Unspecified hemorrhoids; R10.11 Right upper quadrant pain; R05.9 Cough, unspecified; R06.2 Wheezing
CPT/HCPCS: 71046; 99212

== ENCOUNTER 2022-03-30 15:46 | Outpatient (REF) | payer OTHER, SELFPAY ==
--- NOTE | ~2022-03-30 | XR_ITS ---
EXAMINATION: XR PELVIS CLINICAL INFORMATION: Status post fall, pain COMPARISON: None TECHNIQUE: AP view of the pelvis. FINDINGS: The bones and soft tissues are normal. No fracture. Sacroiliac and hip joints are normal. Pubic symphysis is normal. No abnormal soft tissue calcifications. X-ray visualized fusion hardware of the lumbar spine. XR/XR pelvis 1-2V IMPRESSION: Normal pelvis.
--- NOTE | ~2022-03-30 | XR_ITS ---
EXAMINATION: XR lumbar spine 4V min CLINICAL INFORMATION: Reason for Exam s/p fall, pain COMPARISON: None TECHNIQUE: 3 views of the lumbar spine FINDINGS: 5 nonrib-bearing lumbar-type vertebral bodies. Posterior fusion hardware from L4 to L5 without evidence of hardware complication. Vertebral body heights are maintained. Anterolisthesis of L3 on L4 and L4 on L5 Mild multilevel degenerative disc disease with loss of disc space height, facet arthropathy and disc osteophyte complexes. This is worst at L4/L5. Paravertebral soft tissues are unremarkable. XR/XR lumbar spine 4V min IMPRESSION: 1. Spondylosis of the lumbar spine, as above detailed. 2. Spondylolisthesis of L3 on L4 and L4 on L5.
== END 2022-03-30 15:47 | disposition home or self-care (01) ==
LOC: HO.XRAY 15:46
PROVIDERS: PCP General Practice; Visit Provider General Practice
DX: M48.061 Spinal stenosis, lumbar region without neurogenic claudication (principal)
CPT/HCPCS: 72110; 72170

== ENCOUNTER → 2022-08-09 12:31 | Outpatient (BNVA) | payer OTHER, SELFPAY | PROVIDERS: PCP General Practice; Referring Provider General Practice; Visit Provider Nurse Practitioner | DX: Z01.818 Encounter for other preprocedural examination (principal); R10.11 Right upper quadrant pain; K90.89 Other intestinal malabsorption; K21.9 Gastro-esophageal reflux disease without esophagitis; R41.3 Other amnesia; K29.40 Chronic atrophic gastritis without bleeding; Z86.010 Personal history of colon polyps | CPT/HCPCS: 99212 ==

== ENCOUNTER 2022-08-16 13:33 | Outpatient (REF) | payer OTHER, SELFPAY ==
[2022-08-16 13:57] LABS: MANUAL DIFF FLAG NO
[2022-08-16 14:02] LABS: Basophils Percent Auto 0.4 % (0-2); Eosinophils Absolute Auto 0.1 X10*3/uL (0.0-0.4); Eosinophils Percent Auto 1.3 % (0-4); Hematocrit 33.5 % (37.0-47.0); Hemoglobin 11.3 g/dl (12.0-16.0); Imm Gran Abs Auto 0.02 X10*3/uL (0.00-0.03); Imm Gran Pct Auto 0.3 % (0.0-0.4); Lymphocytes Absolute Auto 1.7 X10*3/uL (1.2-4.9); Lymphocytes Percent Auto 22.7 % (20-40); Mean Corpuscular HGB Conc 33.7 g/dl (31.0-35.0); Mean Corpuscular Hemoglobin 31.2 pg (27.0-33.0); Mean Corpuscular Volume 92.5 fL (80.0-98.0); Mean Platelet Volume 10.5 fL (9.4-12.3); Monocytes Absolute Auto 0.6 X10*3/uL (0.1-1.2); Monocytes Percent Auto 7.3 % (2-11); Neutrophils Absolute Auto 5.2 x10*3/uL (2.0-8.3); Platelet Count 168 X10*3/uL (160-400); Red Blood Count 3.62 X10*6/uL (4.20-5.50); Red Cell Distribution Width 12.3 % (11.0-16.0); White Blood Count 7.7 X10*3/uL (4.8-10.8)
[2022-08-16 14:57] LABS: Alanine Aminotransferase 66 U/L (0-31); Albumin Level 3.8 g/dL (3.5-5.0); Alkaline Phosphatase 115 U/L (39-117); Anion Gap 12 (12-20); Aspartate Amino Transferase 84 U/L (5-31); Bilirubin Total 0.3 mg/dL (0.0-1.0); Blood Urea Nitrogen 16 mg/dL (9-16); Calcium 8.9 mg/dL (8.4-10.2); Carbon Dioxide 24 mmol/L (22-29); Chloride 110 mmol/L (96-108); Estimated Glomerular Filt Rate > 60; Glucose Random 233 mg/dL (60-115); Potassium 3.8 mmol/L (3.3-5.1); Sodium 142 mmol/L (135-145); Total Protein 6.4 g/dL (6.5-8.0)
[2022-08-16 15:20] LABS: Folate 12.9 ng/mL (> or = 4.0); Vitamin B12 327 pg/mL (200-900)
== END 2022-08-16 13:34 | disposition home or self-care (01) ==
LOC: HO.LAB 13:33
PROVIDERS: PCP General Practice; Visit Provider Nurse Practitioner
DX: Z01.818 Encounter for other preprocedural examination (principal); K29.40 Chronic atrophic gastritis without bleeding
CPT/HCPCS: 36415; 80053; 82607; 82746; 85025

== ENCOUNTER 2022-11-02 12:10 | Outpatient (REF) | payer OTHER, SELFPAY ==
--- NOTE | ~2022-11-02 | XR_ITS ---
EXAMINATION: XR ELBOW, LEFT CLINICAL INFORMATION: Left elbow swelling COMPARISON: None available. TECHNIQUE: AP, lateral, and oblique views of the left elbow. FINDINGS: The bones and soft tissues are normal. No fracture or joint effusion. Alignment is anatomic. Joint spaces are maintained. XR/XR elbow LT min 3V IMPRESSION: Normal left elbow.
== END 2022-11-02 12:11 | disposition home or self-care (01) ==
LOC: HO.HHCX 12:10
PROVIDERS: Visit Provider General Practice
DX: M25.422 Effusion, left elbow (principal)
CPT/HCPCS: 73080

== ENCOUNTER → 2023-03-05 14:34 | Outpatient (REF) | payer OTHER, SELFPAY | LOC: HO.SL 14:34 | PROVIDERS: PCP General Practice; Visit Provider General Practice | DX: G47.33 Obstructive sleep apnea (adult) (pediatric) (principal); R06.83 Snoring; R40.0 Somnolence; G47.10 Hypersomnia, unspecified | CPT/HCPCS: 95806 ==

== ENCOUNTER → 2023-03-05 19:00 | Outpatient (BNV) | payer OTHER, SELFPAY | PROVIDERS: PCP General Practice; Visit Provider Internal Medicine | DX: G47.33 Obstructive sleep apnea (adult) (pediatric) (principal) | CPT/HCPCS: 95806 ==

== ENCOUNTER 2023-04-26 11:27 | Day surgery (SDC) | payer OTHER, SELFPAY ==
--- NOTE | 2023-04-25 09:48 | HO.ANESPROP2 ---
HPI - Anesthesia Eval Consult details Narrative: 77yo F for Colonoscopy PMF Active Problems Active Problems: All Active Problems (Updated 08/09/22 @ 13:07 by PRADEEP Romero) Pre-op examination (Acute) Asthma exacerbation (Acute) Wheezing (Acute) Cough (Acute) RUQ abdominal pain (Acute) IBS (irritable bowel syndrome) (Acute) Dysuria (Acute) Post laminectomy syndrome (Acute) Degenerative lumbar spinal stenosis (Acute) Lumbar radiculopathy (Acute) Bleeding hemorrhoids (Acute) Wound of left lower extremity (Acute) Atypical nevi (Acute) Cellulitis (Acute) Elevated lipase (Acute) Urinary frequency (Acute) Bile salt-induced diarrhea (Acute) Tubular adenoma of colon (Acute) High cholesterol (Acute) Depression (Acute) Urinary incontinence (Acute) Fibromyalgia (Acute) Spinal stenosis (Acute) Osteopenia (Acute) Diabetes (Acute) HTN (hypertension), benign (Acute) Poor memory (Acute) Periumbilical abdominal pain (Acute) Atrophic gastritis (Acute) GERD (gastroesophageal reflux disease) (Acute) Past Medical History Medical History Diabetes HTN (hypertension) Incisional hernia Sebaceous cyst of axilla Family History Family History Father No problems noted. Mother No problems noted. Surgical History Surgical History History of back surgery History of colonoscopy Hx of cholecystectomy Hx of endoscopy Status post right knee replacement Social History Social History Alcohol intake: never Cigarettes Per Day: 5 Meds Allergies Allergy/AdvReac Type Severity Reaction Status Date / Time morphine [MORPHINE] Allergy Intermediate GI Verified 08/09/22 12:48 UPSET,TACHYCARDIA clams AdvReac Intermediate GI UPSET Verified 08/09/22 12:48 rosiglitazone [From [facility]ANDIA] AdvReac Unknown PEDAL EDEMA Verified 08/09/22 12:48 clam Allergy Unknown unknown Uncoded 10/17/21 10:54 Home Medications Medication Instructions Recorded Confirmed Last Taken Type atorvastatin 40 mg tablet 40 mg PO QPM 01/29/20 09/04/21 Unknown History clonazepam 1 mg tablet 1 mg PO BID 01/29/20 09/04/21 Unknown History alcohol swabs pad topical TID diabetes mellitus 09/09/20 09/04/21 Unknown History gabapentin 600 mg tablet 600 mg PO 09/09/20 09/04/21 Unknown History lisinopril 40 mg tablet 40 mg PO QAM 09/09/20 09/04/21 Unknown History metformin 500 mg tablet 500 mg PO BID 09/09/20 09/04/21 Unknown History metoprolol tartrate 50 mg tablet 50 mg PO BID 09/09/20 09/04/21 Unknown History duloxetine 60 mg capsule,delayed 60 mg PO DAILY 09/04/21 09/04/21 Unknown History release nifedipine 30 mg tablet,extended 30 mg PO DAILY 09/04/21 09/04/21 Unknown History release 24 hr calcium carbonate 300 mg (750 mg) 1 tab PO BID 10/17/21 Unknown History chewable tablet (Antacid Extra Strength (calcium carb)) blood sugar diagnostic (FreeStyle #10 ea 12/08/21 Unknown History Lite Strips) lancets 33 gauge (TRUEplus Lancets) #100 ea 12/08/21 Unknown History multivitamin 1 tab PO DAILY 12/08/21 Unknown History Assessment and Plan Assessment Anesthesia Assessment: Chart Reviewed
[2023-04-26 12:30] VITALS: BP 154/76; PULSE 82; RESP 19; TEMP 36.1; O2SAT 98
[2023-04-26 12:31] VITALS: BMI 27.2
[2023-04-26 12:34] LABS: Glucose, Whole Blood 139 mg/dL (60-115)
--- NOTE | 2023-04-26 12:51 | HO.ANESPROP2 ---
FORMERLY [facility], [facility] Active Problems Active Problems: All Active Problems (Updated 08/09/22 @ 13:07 by PRADEEP Romero) Pre-op examination (Acute) Asthma exacerbation (Acute) Wheezing (Acute) Cough (Acute) RUQ abdominal pain (Acute) IBS (irritable bowel syndrome) (Acute) Dysuria (Acute) Post laminectomy syndrome (Acute) Degenerative lumbar spinal stenosis (Acute) Lumbar radiculopathy (Acute) Bleeding hemorrhoids (Acute) Wound of left lower extremity (Acute) Atypical nevi (Acute) Cellulitis (Acute) Elevated lipase (Acute) Urinary frequency (Acute) Bile salt-induced diarrhea (Acute) Tubular adenoma of colon (Acute) High cholesterol (Acute) Depression (Acute) Urinary incontinence (Acute) Fibromyalgia (Acute) Spinal stenosis (Acute) Osteopenia (Acute) Diabetes (Acute) HTN (hypertension), benign (Acute) Poor memory (Acute) Periumbilical abdominal pain (Acute) Atrophic gastritis (Acute) GERD (gastroesophageal reflux disease) (Acute) Past Medical History Medical History Incisional hernia Sebaceous cyst of axilla HTN (hypertension) Diabetes Functional capacity: independent ambulation Family History Family History Father No problems noted. Mother No problems noted. Family history of problems with anesthesia: No Surgical History Surgical History Status post right knee replacement History of back surgery Hx of cholecystectomy Hx of endoscopy History of colonoscopy History of Problems with Anesthesia: No Social History Social History Alcohol intake: never Patient Tobacco Use Status: Current everyday Tobacco user Cigarettes Per Day: 5 Use of substances other than those prescribed or required for medical reasons: No Are you DNR?: No Advance Directives: No Advance Directives Information Provided: Yes Recently lost weight without trying: No Nutrition Risks: No Nutritional Risk Meds Allergies Allergy/AdvReac Type Severity Reaction Status Date / Time morphine [MORPHINE] Allergy Intermediate GI Verified 08/09/22 12:48 UPSET,TACHYCARDIA clams AdvReac Intermediate GI UPSET Verified 08/09/22 12:48 rosiglitazone [From AVANDIA] AdvReac Unknown PEDAL EDEMA Verified 08/09/22 12:48 clam Allergy Unknown unknown Uncoded 10/17/21 10:54 Active Medications: Current Medications Lactated Ringer's (Lr) 1,000 mls @ 100 mls/hr IVCONT .Q10H MARCOS Home Medications Medication Instructions Recorded Confirmed Last Taken Type atorvastatin 40 mg tablet 40 mg PO QPM 01/29/20 04/26/23 Unknown History gabapentin 600 mg tablet 600 mg PO TID 09/09/20 04/26/23 Unknown History lisinopril 40 mg tablet 40 mg PO QAM 09/09/20 04/26/23 04/26/23 History metformin 500 mg tablet 500 mg PO BID 09/09/20 04/26/23 04/26/23 History metoprolol tartrate 50 mg tablet 50 mg PO BID 09/09/20 04/26/23 04/26/23 History duloxetine 60 mg capsule,delayed 60 mg PO DAILY 09/04/21 04/26/23 04/26/23 History release nifedipine 30 mg tablet,extended 30 mg PO DAILY 09/04/21 04/26/23 04/26/23 History release 24 hr calcium carbonate 300 mg (750 mg) 1 tab PO BID 10/17/21 04/26/23 Unknown History chewable tablet (Antacid Extra Strength (calcium carb)) blood sugar diagnostic (FreeStyle #10 ea 12/08/21 04/26/23 Unknown History Lite Strips) lancets 33 gauge (TRUEplus Lancets) #100 ea 12/08/21 04/26/23 Unknown History multivitamin 1 tab PO DAILY 12/08/21 04/26/23 Unknown History Exam Height,Weight and Vital Signs: Height 4 ft 9 in Weight 57.062 kg Last Vital Signs Temp 97 F 04/26/23 12:30 Pulse 82 04/26/23 12:30 Resp 19 04/26/23 12:30 BP 154/76 H 04/26/23 12:30 Pulse Ox 98 04/26/23 12:30 O2 Del Method Room Air 04/26/23 12:30 Pertinent Lab Results Pertinent Lab Results: Laboratory Tests 04/26/23 12:29 POC Glucose 139 H Airway Heart: RRR Lungs: CTA Assessment and Plan Assessment Anesthesia Assessment: Anesthesia Plan Discussed Final Anesthetic Review Family History of Problems with Anesthesia: No History of Problems with Anesthesia: No NPO: Yes ASA Class: III Final Preanesthetic Review: Meds/Allgs Chart Reviewed, Consent Obtained/Reviewed and Anes Risks/Benef Reviewed Patient Risk: Low Procedure Risk: Low Anesthetic Plan Anesthetic Plan: MAC: Disposition: Standard PACU
[2023-04-26] MEDS: Lactated Ringers 1,000 ML 100 ML IVCONT (12:59)
--- NOTE | 2023-04-26 13:25 | MHC.SHP ---
Pre-Procedural Eval Section A - 24 Hr Update-Section A only Date of Service: 04/26/23 The patient is an INPATIENT: No The patient has been examined within 24 hours of the surgical procedure. The History & Physical has been completed within 30 days and I have reviewed it.: No Section B - Complete if H&P > 30 days Chief Complaint: Surveillance for colon polyps, rectal bleeding Relevant Family History (Specify if Yes): No Relevant Social History: Tobacco Use Present Medications: see Short Stay Collaborative assessment Medical History: Significant History (Diabetes HTN (hypertension) Incisional hernia Sebaceous cyst of axilla) History of Previous Operations: Relevant previous surgery/procedure and date(s) (History of back surgery History of colonoscopy Hx of cholecystectomy Hx of endoscopy Status post right knee replacement) Allergies: Allergies Allergy/AdvReac Type Severity Reaction Status Date / Time morphine [MORPHINE] Allergy Intermediate GI Verified 08/09/22 12:48 UPSET,TACHYCARDIA clams AdvReac Intermediate GI UPSET Verified 08/09/22 12:48 rosiglitazone [From AVANDIA] AdvReac Unknown PEDAL EDEMA Verified 08/09/22 12:48 clam Allergy Unknown unknown Uncoded 10/17/21 10:54 Review of Systems Sugical H&P ROS: Negative: Constitution, Cardiovascular and Respiratory and Yes, Specify: Gastrointestinal (rectal bleeding) Exam Surgical H&P Exam: Normal: Heart, Normal: Lungs, Normal: Extremities and Normal: Abdomen Plan Diagnosis/Plan: Unchanged I have reviewed the history and physical and performed a pertinent physical examination on my patient. No changes have occurred unless specified. Time Spent With Patient Time: Total time managing care of this patient today ____ minutes.
--- NOTE | 2023-04-26 13:27 | P.OP_ITS ---
Operative Note Operative Note Date of Service: 04/26/23 Narrative: COLONOSCOPY TILL CECUM WITH BIOPSY, SNARE POLYPECTOMY, SUBMUCOSAL INJECTION AND HEMOCLIP PLACEMENT Pre-op diagnosis: Surveillance of colon polyps, rectal bleeding Post-op diagnosis:? Colon polyps, diverticulosis, hemorrhoids Endoscopist:? Daniella Griffin MD Anesthesia:?MAC Consent: Indications for the procedure and potential complications of bleeding, perforation, reaction to medications and missed diagnosis were discussed with the patient and informed consent was obtained. Instrument: Olympus PCF H 190 L variable stiffness pediatric colonoscope Monitoring: Vital signs and clinical assessment, intermittent blood pressure monitoring, continuous EKG monitoring, Pulse oximetry and Carbon Dioxide monitoring were done throughout the procedure. Please see anesthesia flowsheet. Colon withdrawl time was 37 minutes. Procedure: The patient was placed in the left lateral decubitis position and pre-procedure medications were administered. After a digital rectal examination of the ano-rectum, the video colonoscope was inserted into the rectum and advanced through the colon to the cecum. The colonoscope was slowly withdrawn in a retrograde panoramic fashion and the colon mucosa was carefully examined including a retroflexed view of the rectum. Findings and interventions are described below. Procedure Difficulty: Colon was long and tortuous and there was spasm and some loop formation There was narrowing of the sigmoid colon at 25 to 30 cms due to severe diverticulosis which was navigated with some difficulty Findings: Terminal Ileum: Not evaluated Cecum: A 15 to 18 mm flat polyp proximal to the ICV. Polyp was raised with 5 cc of [place] and removed with a hot stiif snare. Polypectomy site was closed with 1 hemoclip and marked with Britta ink Two 8 to 10 mm sessile polyps - removed with a hot snare A 2-3 mm sessile polyp - removed with a cold biopsy Ascending Colon: A 10-12 mm sessile polyp on a fold in the distal ascending colon - removed with a hot snare Transverse Colon: Normal Descending Colon: Moderate diverticulosis Sigmoid Colon: Severe diverticulosis with luminal narrowing Rectum: Normal Ano-rectum: Moderate inflamed internal hemorrhoids Colon preparation: Good after copious irrigation [place] Bowel Preparation Scale Right colon; 2 Transverse colon: 2 Left colon; 2 (0 = Unprepared colon segment with mucosa not seen due to solid stool that cannot be cleared. 1 = Portion of mucosa of the colon segment seen, but other areas of the colon segment not well seen due to staining, residual stool and/or opaque liquid. 2 = Minor amount of residual staining, small fragments of stool and/or opaque liquid, but mucosa of colon segment seen well. 3 = Entire mucosa of colon segment seen well with no residual staining, small fragments of stool or opaque liquid) Impression and Post Procedure Diagnosis: Colonoscopy Findings: One small and four medium sized polyps removed Moderate to severe diverticulosis seen in the left colon Moderate hemorrhoids on retroflexed exam - likely source of rectal bleed Plan: Await pathology results Patient has an appointment on 05/10/23 in the GI Clinic with Luda Wyatt NP. Repeat Colonoscopy interval based on path results - in 3 - 5 years if polyps are adenomatous and due to history of adenomatous colon polyps. Above findings were reviewed with the patient and colon polyps and hemorrhoids handouts were given in the discharge area Patient was advised to use hydrocortisone cream twice a day for hemorrhoids.
[2023-04-26 15:18] VITALS: BP 123/69; PULSE 71; RESP 16; TEMP 36.2; O2SAT 100
[2023-04-26 15:33] VITALS: BP 147/77; PULSE 70; RESP 18; O2SAT 100
--- NOTE | 2023-04-26 15:40 | HO.POSTANES ---
Post Anesthesia Evaluation Post Anesthesia Evaluation Date of Service: 04/26/23 Vital Signs: Vital Signs Temp Pulse Resp BP Pulse Ox O2 Del Method 04/26/23 15:33 70 18 147/77 H 100 Room Air 04/26/23 15:18 97.1 F 71 16 123/69 100 Room Air 04/26/23 12:30 97 F 82 19 154/76 H 98 Room Air Anesthesia: Monitored Mental Status: Awake Pain Control: Satisfactory Nausea/Vomiting: None Hydration: Adequate Anesthesia-Related Issues: No Anes. Related Issues
[2023-04-26 15:48] VITALS: BP 141/66; PULSE 78; RESP 16; O2SAT 100
[2023-04-26 16:03] VITALS: BP 134/74; PULSE 62; RESP 16; TEMP 36.3; O2SAT 96
== END 2023-04-26 16:16 | disposition home or self-care (01) ==
PROVIDERS: PCP General Practice; Visit Provider Internal Medicine Gastroenterology
PROC: 0DJD8ZZ Inspection of Lower Intestinal Tract, Via Natural or Artificial Opening Endoscopic (ICD-10-PCS; CPT 45378; principal; 2023-04-26 13:50)
DX: Z12.11 Encounter for screening for malignant neoplasm of colon (principal); D12.0 Benign neoplasm of cecum; D12.2 Benign neoplasm of ascending colon; K57.30 Diverticulosis of large intestine without perforation or abscess without bleeding; K64.8 Other hemorrhoids; Z86.010 Personal history of colon polyps; E11.9 Type 2 diabetes mellitus without complications; I10 Essential (primary) hypertension; E78.00 Pure hypercholesterolemia, unspecified; Z79.02 Long term (current) use of antithrombotics/antiplatelets; Z79.84 Long term (current) use of oral hypoglycemic drugs; Z79.899 Other long term (current) drug therapy
CPT/HCPCS: 45385; 45380; 45381; 82947; 88305; J2704

== ENCOUNTER → 2023-04-26 11:27 | Outpatient (BNV) | payer OTHER, SELFPAY | PROVIDERS: PCP General Practice; Visit Provider Internal Medicine Gastroenterology | DX: Z12.11 Encounter for screening for malignant neoplasm of colon (principal); Z86.010 Personal history of colon polyps; D12.0 Benign neoplasm of cecum; D12.2 Benign neoplasm of ascending colon; K57.90 Diverticulosis of intestine, part unspecified, without perforation or abscess without bleeding; K64.8 Other hemorrhoids | CPT/HCPCS: 45380; 45381; 45385 ==

== ENCOUNTER 2023-04-30 14:33 | Outpatient (REF) | payer OTHER, SELFPAY ==
[2023-04-30 16:23] LABS: MANUAL DIFF FLAG NO
[2023-04-30 16:30] LABS: Basophils Percent Auto 0.4 % (0-2); Eosinophils Absolute Auto 0.1 X10*3/uL (0.0-0.4); Eosinophils Percent Auto 1.5 % (0-4); Hemoglobin 13.2 g/dl (12.0-16.0); Imm Gran Abs Auto 0.03 X10*3/uL (0.00-0.03); Imm Gran Pct Auto 0.4 % (0.0-0.4); Lymphocytes Percent Auto 23.8 % (20-40); Mean Corpuscular HGB Conc 33.8 g/dl (31.0-35.0); Mean Corpuscular Hemoglobin 31.1 pg (27.0-33.0); Mean Platelet Volume 11.2 fL (9.4-12.3); Monocytes Absolute Auto 0.5 X10*3/uL (0.1-1.2); Monocytes Percent Auto 5.9 % (2-11); Neutrophils Absolute Auto 5.7 x10*3/uL (2.0-8.3); Platelet Count 199 X10*3/uL (160-400); Red Blood Count 4.24 X10*6/uL (4.20-5.50); Red Cell Distribution Width 12.3 % (11.0-16.0); White Blood Count 8.4 X10*3/uL (4.8-10.8)
[2023-04-30 16:54] LABS: Alanine Aminotransferase 27 U/L (0-31); Albumin Level 4.3 g/dL (3.5-5.0); Alkaline Phosphatase 98 U/L (39-117); Anion Gap 16 (12-20); Aspartate Amino Transferase 18 U/L (5-31); Bilirubin Total 0.3 mg/dL (0.0-1.0); Blood Urea Nitrogen 14 mg/dL (9-16); Carbon Dioxide 25 mmol/L (22-29); Chloride 105 mmol/L (96-108); Estimated Glomerular Filt Rate > 60; Glucose Random 167 mg/dL (60-115); Potassium 3.9 mmol/L (3.3-5.1); Sodium 142 mmol/L (135-145); Total Protein 7.6 g/dL (6.5-8.0)
== END 2023-04-30 14:34 | disposition home or self-care (01) ==
LOC: HO.HHCL 14:33
PROVIDERS: Visit Provider Emergency Medicine
DX: R29.6 Repeated falls (principal)
CPT/HCPCS: 36415; 80053; 85025

== ENCOUNTER 2023-05-06 11:14 | Emergency (ER) | payer OTHER, SELFPAY ==
--- NOTE | ~2023-05-06 | CT_ITS ---
EXAMINATION: CT CHEST, ABDOMEN AND PELVIS WITH CONTRAST CLINICAL INFORMATION: Right-sided rib and abdominal pain after fall COMPARISON: 07/19/2016 TECHNIQUE: Multidetector volumetric imaging was performed through the chest, abdomen and pelvis following the administration of 85 mL of Omnipaque 350 intravenous contrast. Sagittal and coronal reformatted images were obtained on the technologist's workstation. Axial MIP volume rendering provided. This CT examination was performed using dose optimization techniques as appropriate, variously including the following: *Automated exposure control *Adjustment of mA and/or kV according to patient size (this includes techniques or standardized protocols for targeted exams where dose is matched to indication/reason for exam; i.e. extremities or head) *Use of iterative reconstruction technique DLP: 529 mGy-cm FINDINGS: CHEST: Lungs: Biapical scarring noted. No regions of consolidation bilaterally. Mild dependent atelectasis noted. There is a juxta fissural left upper lobe nodule measuring 4 mm on image 63/362. Mediastinum: The visualized thyroid gland is unremarkable. There are subcentimeter mediastinal lymph nodes within the range of normal variation. Cardiac size is within normal limits; no pericardial effusion. Coronary artery calcifications are present. Mild scattered calcification along the aorta. Pleura: No pneumothorax or pleural effusion. Chest Wall/Axilla: No axillary lymphadenopathy is present. ABDOMEN/PELVIS: Liver, Gallbladder, Biliary Tree: The liver is normal in size, shape, and attenuation. There is mild biliary ductal dilatation which may be physiologic in the setting of prior cholecystectomy. Pancreas: Unremarkable. Spleen: Unremarkable. Adrenal Glands: Unremarkable. Kidneys and Ureters: There is slight fullness of the bilateral ureters, without significant renal pelvic dilation. No obstructing calculus is seen. Bilateral nephrograms are symmetric. Bladder: Partially distended with slight mural prominence. Gastrointestinal Tract: No evidence of bowel obstruction or significant wall thickening. Appendix appears nondilated. No free fluid or free air is seen. Abdominal Wall: Just deep to the anterior abdominal wall there is a mildly hypodense region measuring up to 2.7 cm in transverse dimension on image 32/82 which is of uncertain etiology though appears without significant change from 08/30/2020. Lymphovascular Structures: Lymph nodes: Normal. Vascular: Mild scattered atherosclerotic calcification. Pelvic Viscera: Unremarkable. OSSEOUS STRUCTURES: No acute fracture is seen. Degenerative changes are noted in the spine. Fusion hardware noted at L4-L5. 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 CT/CT abdomen pelvis w IV con IMPRESSION: 1. No acute traumatic findings identified in the chest, abdomen, or pelvis. 2. Mild biliary ductal dilatation, which may be physiologic in the setting of prior cholecystectomy, similar to prior. 3. Mild mural prominence of the urinary bladder, which could be due to underdistention or potentially cystitis in the proper clinical setting. 4. Nonspecific mildly hypodense region just deep to the anterior abdominal wall, without significant change from 08/30/2020 and which may represent scarring. 5. Left upper lobe 4 mm lung nodule, nonspecific. According to the UPDATED 2017 Fleischner Society recommendations, the advised follow-up imaging for solid nodules < 6 mm is: LOW RISK PATIENT: No routine follow-up. HIGH RISK PATIENT: Optional CT at 12 months.
[2023-05-06 11:30] VITALS: BP 140/69; PULSE 64; RESP 16; TEMP 36.2; O2SAT 98; BMI 27.8
--- NOTE | 2023-05-06 11:31 | ED_ITS ---
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 Patient states that she tripped while using her walker and landed on her left side. She states that she has had pain since. She denies any chest pain, shortness of breath head strike, LOC, dizziness, abdominal pain, vomiting or diarrhea. She does admit to having some nausea and decreased appetite secondary to the pain. Denies any urinary symptoms. Denies taking any medications at home to treat her current symptoms. No other complaints or concerns at this time. MD complaint: Right rib pain, abdominal pain Onset (ago): week(s) Location: abdomen Radiation: non-radiation Severity: moderate Quality: aching Pain Consistency: constant Relieving factors: immobilization and rest Exacerbating factors: movement Associated symptoms: nausea/vomiting Treatments prior to arrival: none Related Data Home Medications Medication Instructions Recorded Confirmed atorvastatin 40 mg tablet 40 mg PO QPM 01/29/20 04/26/23 gabapentin 600 mg tablet 600 mg PO TID 09/09/20 04/26/23 lisinopril 40 mg tablet 40 mg PO QAM 09/09/20 04/26/23 metformin 500 mg tablet 500 mg PO BID 09/09/20 04/26/23 metoprolol tartrate 50 mg tablet 50 mg PO BID 09/09/20 04/26/23 duloxetine 60 mg capsule,delayed 60 mg PO DAILY 09/04/21 04/26/23 release nifedipine 30 mg tablet,extended 30 mg PO DAILY 09/04/21 04/26/23 release 24 hr calcium carbonate 300 mg (750 mg) 1 tab PO BID 10/17/21 04/26/23 chewable tablet (Antacid Extra Strength (calcium carb)) blood sugar diagnostic (FreeStyle #10 ea 12/08/21 04/26/23 Lite Strips) lancets 33 gauge (TRUEplus Lancets) #100 ea 12/08/21 04/26/23 multivitamin 1 tab PO DAILY 12/08/21 04/26/23 Previous Rx's Medication Instructions Recorded albuterol sulfate 90 mcg/actuation 1 inh inhalation QID PRN shortness 02/22/22 aerosol inhaler (Ventolin HFA) of breath or wheezing #8.5 grams methylcellulose (laxative) 500 mg 500 mg PO BID #60 tabs 08/09/22 tablet (Citrucel) sucralfate 100 mg/mL oral 30 ml PO QNOON #420 mL 08/09/22 suspension (Carafate) pantoprazole 20 mg tablet,delayed 20 mg PO QAM #90 tabs 02/18/23 release hydrocortisone 2.5 % topical cream 1 appl ME Q12H 2 weeks #30 grams 04/26/23 with perineal applicator cefuroxime axetil 250 mg tablet 250 mg PO BID 7 days #14 tabs 05/06/23 Allergies Allergy/AdvReac Type Severity Reaction Status Date / Time morphine [MORPHINE] Allergy Intermediate GI Verified 05/06/23 11:43 UPSET,TACHYCARDIA clams AdvReac Intermediate GI UPSET Verified 05/06/23 11:43 rosiglitazone [From AVANDIA] AdvReac Unknown PEDAL EDEMA Verified 05/06/23 11:43 clam Allergy Unknown unknown Uncoded 05/06/23 11:43 Review of Systems 2 Review of Systems: Yes all other systems are reviewed and are negative Constitutional: Constitutional: Reports as per [facility] Past Medical History Attestation statement: The following information was validated with the patient. Medical History Incisional hernia Sebaceous cyst of axilla HTN (hypertension) Diabetes Surgical History Status post right knee replacement History of back surgery Hx of cholecystectomy Hx of endoscopy History of colonoscopy Family History Family History Father No problems noted. Mother No problems noted. Social History Social History Alcohol intake: never Patient Tobacco Use Status: Current everyday Tobacco user Cigarettes Per Day: 5 Advance Directives: No Advance Directives Information Provided: Yes Physical Exam ED Vital Signs: Vital Signs - 24 hr 05/06/23 11:30 Temperature 97.2 F Pulse Rate 64 Respiratory Rate 16 Blood Pressure 140/69 H Pulse Oximetry 98 Oxygen Delivery Method Room Air BMI result Body Mass Index 27.8 Const General: cooperative, comfortable and no acute distress Orientation/consciousness: patient oriented x3 Limitations: no limitations HENMT Head: Yes normal to inspection, Yes normocephalic and Yes atraumatic Ears: hearing grossly normal bilaterally General nose exam: Normal external nose present Face and sinus: Yes normal facial exam Mouth: Normal oral and palatal mucosa present, oropharynx normal and moist mucous membranes Throat: Yes posterior oropharynx normal Eyes General: appearance normal, both eyes and all related structures Eyelids: Yes eyelids normal Conjunctivae: conjunctivae normal Sclerae: sclerae normal Pupils: Equal, round and reactive pupils present EOM: EOMs intact bilaterally Neck Neck: Yes normal visual inspection, Yes full ROM and Yes no lymphadenopathy Lymphatic: no lymphadenopathy noted Chest Other: Tenderness palpation along the right lateral ribs, no bony step-off or deformity, no ecchymosis seen Chest palpation & inspection: normal inspection of the chest Resp Effort & Inspection: normal respiratory effort and able to speak in complete sentences Auscultation: clear to auscultation bilaterally, no crackles, no rales, no rhonchi and no wheezes Cardio Rate: regular rate Rhythm: regular rhythm Heart sounds: S1 normal heart sound present and S2 normal heart sound present GI Other: Tenderness palpation along the right flank, no ecchymosis, abdomen is otherwise soft, nontender, nondistended normoactive bowel sounds present in all 4 quadrants Inspection: Yes normal to inspection Skin General skin exam: no rashes or lesions noted Trauma: no lacerations or abrasions Wounds: no wounds Neuro General: patient oriented x3 and moves all extremities Cranial nerves: Yes Equal, round and reactive pupils present Extrem General: Yes normal to inspection Right upper extremity: normal to inspection Left upper extremity: normal to inspection Right lower extremity: normal to inspection Left lower extremity: normal to inspection Course Course Course Narrative: RME performed by Kena Adkins PA-C. Patient is a 77 year old assigned female at presenting to the emergency department with abdominal pain. Detailed physical exam and review of systems are deferred to the primary school teacher librarian. Labs ordered. Patient placed back in the waiting room pending room availability and results. Reevaluation(s) Reevaluation #1: CT chest and abdomen return. No traumatic findings identified. There is mild biliary ductal dilatation, she did have a cholecystectomy. There is mild mural prominence of the urinary bladder, there is also hypodense region in the anterior abdominal wall which is unchanged since 2020. There is also a left upper lobe nodule measuring 4 mm, which may require follow-up. I discussed this finding with patient and family. Urine still pending. Time: 19:13 Reevaluation #2: 05/07/2023 - 10:00 - I called and spoke to patient in regards to urine sample that they did not want to wait for. Her urine did not appear to be infected. I discussed this and advised to not brain picker prescription for antibiotic as it does not seem to be warranted at this time, urine culture is pending. They understand and agree with plan. Stable for discharge Medications Administered Discontinued Medications Generic Name Dose Route Start Last Admin Trade Name Freq PRN Reason Stop Dose Admin Acetaminophen 650 mg 05/06/23 18:49 05/06/23 19:21 Acetaminophen 325 Mg Tablet PO 05/06/23 18:50 Not Given ONCE ONE Cefuroxime Axetil 250 mg 05/06/23 19:38 05/06/23 19:54 Cefuroxime Axetil 250 Mg Tablet PO 05/06/23 19:39 250 mg ONCE ONE Administration Iohexol 85 ml 05/06/23 17:46 05/06/23 17:46 Iohexol 350 Mg/Ml 100 Ml Infus..Btl IV 05/06/23 17:47 85 ml ONCE ONE Administration Medical Decision Making Medical Decision Making [facility] Narrative: This is a 77-year-old Uzbek-speaking female presenting to the emergency department with complaints of right-sided rib and abdominal pain status post mechanical fall which occurred 3 weeks ago. Patient has tenderness palpation along the right flank as well as right lateral ribs. Given pain, will obtain CT chest and abdomen to rule out bony abnormalities, or intra peritoneal injury/abdominal process. Patient has no urinary symptoms therefore nephrolithiasis, pyelonephritis unlikely. Differential Diagnosis Differential Diagnoses: The differential diagnosis associated with the presentation includes Nephrolithiasis, pyelonephritis, rib fracture, abdominal pain, splenic laceration, liver laceration Admission/Observation Consideration of admission/observation: Escalation of care including admission/observation considered Patient would have been admitted to the hospital had her work up had any findings where hospital admission was appropriate and her clinical presentation warranted hospital admission. Lab Data MDM Lab Attestation statement: I reviewed the patient's lab results. No leukocytosis, stable H&H, liver enzymes within normal limits. 05/06/23 11:49 05/06/23 11:49 Labs: Lab Results 05/06/23 05/06/23 Range/Units 11:49 19:36 WBC 6.0 (4.8-10.8) X10*3/uL RBC 3.97 L (4.20-5.50) X10*6/uL Hgb 12.5 (12.0-16.0) g/dl Hct 36.5 L (37.0-47.0) % MCV 91.9 (80.0-98.0) fL MCH 31.5 (27.0-33.0) pg MCHC 34.2 (31.0-35.0) g/dl RDW 12.2 (11.0-16.0) % Plt Count 187 (160-400) X10*3/uL MPV 10.1 (9.4-12.3) fL Immature Gran % (Auto) 0.2 (0.0-0.4) % Neut % (Auto) 57.3 (45-73) % Lymph % (Auto) 33.7 (20-40) % Coffee % (Auto) 6.0 (2-11) % Eos % (Auto) 2.5 (0-4) % Baso % (Auto) 0.3 (0-2) % Lymph # (Auto) 2.0 (1.2-4.9) X10*3/uL Coffee # (Auto) 0.4 (0.1-1.2) X10*3/uL Eos # (Auto) 0.2 (0.0-0.4) X10*3/uL Baso # (Auto) 0.0 (0.0-0.2) X10*3/uL Abs Immat Gran (auto) 0.01 (0.00-0.03) X10*3/uL Absolute Neuts (auto) 3.5 (2.0-8.3) x10*3/uL Absolute Nucleated RBC 0.000 (0.0-0.012) X10*3/uL Nucleated RBC % (auto) 0.0 (0.0-0.2) /100WBC Sodium 143 (135-145) mmol/L Potassium 4.0 (3.3-5.1) mmol/L Chloride 109 H (96-108) mmol/L Carbon Dioxide 28 (22-29) mmol/L Anion Gap 10 L (12-20) BUN 12 (9-16) mg/dL Creatinine 0.68 (0.5-1.4) mg/dL Estim Creat Clear Calc 50.7 Estimated GFR > 60 Random Glucose 178 H (60-115) mg/dL Calcium 9.4 (8.4-10.2) mg/dL Magnesium 1.9 (1.6-2.6) mg/dL Total Bilirubin 0.3 (0.0-1.0) mg/dL AST 21 (5-31) U/L ALT 25 (0-31) U/L Alkaline Phosphatase 93 (39-117) U/L Total Protein 7.1 (6.5-8.0) g/dL Albumin 4.2 (3.5-5.0) g/dL Urine Color Yellow Urine Appearance Clear Urine pH 8.5 (5.0-9.0) Ur Specific [place] >= 1.030 H (1.005-1.025) Urine Protein Negative (Neg-Trace) mg/dL Urine Glucose (UA) Negative (Negative) mg/dL Urine Ketones Negative (Negative) mg/dL Urine Blood Negative (Negative) Urine Nitrite Negative (Negative) Ur Leukocyte Esterase Negative (Negative) Radiology Impression Discussion of test interpretation with radiology: I have reviewed the radiologist's reading. Radiologist Impression: EXAMINATION: CT CHEST, ABDOMEN AND PELVIS WITH CONTRAST CLINICAL INFORMATION: Right-sided rib and abdominal pain after fall COMPARISON: 07/19/2016 TECHNIQUE: Multidetector volumetric imaging was performed through the chest, abdomen and pelvis following the administration of 85 mL of Omnipaque 350 intravenous contrast. Sagittal and coronal reformatted images were obtained on the technologist's workstation. Axial MIP volume rendering provided. This CT examination was performed using dose optimization techniques as appropriate, variously including the following: *Automated exposure control *Adjustment of mA and/or kV according to patient size (this includes techniques or standardized protocols for targeted exams where dose is matched to indication/reason for exam; i.e. extremities or head) *Use of iterative reconstruction technique DLP: 529 mGy-cm FINDINGS: CHEST: Lungs: Biapical scarring noted. No regions of consolidation bilaterally. Mild dependent atelectasis noted. There is a juxta fissural left upper lobe nodule measuring 4 mm on image 63/362. Mediastinum: The visualized thyroid gland is unremarkable. There are subcentimeter mediastinal lymph nodes within the range of normal variation. Cardiac size is within normal limits; no pericardial effusion. Coronary artery calcifications are present. Mild scattered calcification along the aorta. Pleura: No pneumothorax or pleural effusion. Chest Wall/Axilla: No axillary lymphadenopathy is present. ABDOMEN/PELVIS: Liver, Gallbladder, Biliary Tree: The liver is normal in size, shape, and attenuation. There is mild biliary ductal dilatation which may be physiologic in the setting of prior cholecystectomy. Pancreas: Unremarkable. Spleen: Unremarkable. Adrenal Glands: Unremarkable. Kidneys and Ureters: There is slight fullness of the bilateral ureters, without significant renal pelvic dilation. No obstructing calculus is seen. Bilateral nephrograms are symmetric. Bladder: Partially distended with slight mural prominence. Gastrointestinal Tract: No evidence of bowel obstruction or significant wall thickening. Appendix appears nondilated. No free fluid or free air is seen. Abdominal Wall: Just deep to the anterior abdominal wall there is a mildly hypodense region measuring up to 2.7 cm in transverse dimension on image 32/82 which is of uncertain etiology though appears without significant change from 08/30/2020. Lymphovascular Structures: Lymph nodes: Normal. Vascular: Mild scattered atherosclerotic calcification. Pelvic Viscera: Unremarkable. OSSEOUS STRUCTURES: No acute fracture is seen. Degenerative changes are noted in the spine. Fusion hardware noted at L4-L5. 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 CT/CT chest w IV con IMPRESSION: 1. No acute traumatic findings identified in the chest, abdomen, or pelvis. 2. Mild biliary ductal dilatation, which may be physiologic in the setting of prior cholecystectomy, similar to prior. 3. Mild mural prominence of the urinary bladder, which could be due to underdistention or potentially cystitis in the proper clinical setting. 4. Nonspecific mildly hypodense region just deep to the anterior abdominal wall, without significant change from 08/30/2020 and which may represent scarring. 5. Left upper lobe 4 mm lung nodule, nonspecific. According to the UPDATED 2017 Fleischner Society recommendations, the advised follow-up imaging for solid nodules < 6 mm is: LOW RISK PATIENT: No routine follow-up. HIGH RISK PATIENT: Optional CT at 12 months. Dictated By: Venkat Summers MD Independent Historian Clinical information obtained from an independent historian. History obtained from or confirmed by: Other (Family) Discharge Plan Discharge Clinical Impression: Contusion Patient Disposition: Home, Self-Care Instructions: Bone Bruise (ED) Additional Instructions: Your seen in the emergency department due to right-sided abdominal, rib pain. There is no explanation of why your having this pain, this is likely musculoskeletal. Please take Tylenol as needed for pain. You also have a lung nodule, please follow-up with your primary care physician as this may need to be monitored. You also have evidence of a urinary tract infection, you were given your 1st dose of the antibiotic in department today. I will call you tomorrow to inform you whether not your urine does appear to be infected. I sent over the prescription and I will call you to tell you whether or not you need to pick this antibiotic up or not. Drink plenty of fluids get plenty of rest. If any new or worsening symptoms occur including but not limited to chest pain, shortness of breath, please return for re-evaluation. Lo atendieron en el departamento de emergencias debido a un dolor en las costillas abdominales del lado derecho. No hay explicaci?n de por qu? tiene tito dolor, probablemente sea musculoesquel?hill. [place] Tylenol seg?n sea necesario para el dolor. Tambi?n tiene un n?dulo pulmonar; manuel un seguimiento con whitten m?dico de atenci?n primaria, ya que es posible que sea necesario controlarlo. Tambi?n tiene evidencia de wilbur infecci?n del tracto urinario; hoy le administraron whitten primera dosis del antibi?hill en el departamento. Le llamar? ma?martín para informarle si whitten orina parece estar infectada. Le envi? la receta y lo llamar? para decirle si necesita o no recoger tito antibi?hill. Randi muchos l?quidos y descanse mucho. Si se presenta alg?n s?ntoma nuevo o que empeora, incluidos, entre otros, dolor en el pecho y dificultad para respirar, regrese para wilbur nueva evaluaci?n. Prescriptions: New cefuroxime axetil 250 mg tablet 250 mg PO BID 7 Days Qty: 14 0RF No Action pantoprazole 20 mg tablet,delayed release (DR/EC) 20 mg PO QAM Qty: 90 3RF Hold Instructions: Doctor's Order hydrocortisone 2.5 % cream with perineal applicator 1 appl ME Q12H 14 Days Qty: 30 2RF atorvastatin 40 mg tablet 40 mg PO QPM duloxetine 60 mg capsule,delayed release(DR/EC) 60 mg PO DAILY lisinopril 40 mg tablet 40 mg PO QAM metoprolol tartrate 50 mg tablet 50 mg PO BID metformin 500 mg tablet 500 mg PO BID gabapentin 600 mg tablet 600 mg PO TID calcium carbonate [Antacid Ext Str (calcium carb)] 300 mg (750 mg) tablet,chewable 1 tab PO BID (DME) FreeStyle Lite Strips Strip See Rx Instructions .ROUTE .MEDSUPPLY Qty: 10 Rx Instructions: As directed multivitamin Tablet 1 tab PO DAILY (DME) lancets [TRUEplus Lancets] 33 gauge misc See Rx Instructions .ROUTE .MEDSUPPLY Qty: 100 Rx Instructions: As directed albuterol sulfate [Ventolin HFA] 90 mcg/actuation HFA aerosol inhaler 1 inh inhalation QID PRN (Reason: shortness of breath or wheezing) Qty: 8.5 3RF Citrucel 500 mg tablet 500 mg PO BID Qty: 60 6RF sucralfate [Carafate] 100 mg/mL suspension 30 ml PO QNOON Qty: 420 3RF nifedipine 30 mg tablet extended release 24hr 30 mg PO DAILY Interventions: ED Discharge Assessment Last Done: 05/06/23 19:57 Discharge Date/Time: 05/06/23 19:59
[2023-05-06 11:54] LABS: MANUAL DIFF FLAG NO
[2023-05-06 11:56] LABS: Basophils Percent Auto 0.3 % (0-2); Eosinophils Absolute Auto 0.2 X10*3/uL (0.0-0.4); Eosinophils Percent Auto 2.5 % (0-4); Hematocrit 36.5 % (37.0-47.0); Hemoglobin 12.5 g/dl (12.0-16.0); Imm Gran Abs Auto 0.01 X10*3/uL (0.00-0.03); Imm Gran Pct Auto 0.2 % (0.0-0.4); Lymphocytes Percent Auto 33.7 % (20-40); Mean Corpuscular HGB Conc 34.2 g/dl (31.0-35.0); Mean Corpuscular Hemoglobin 31.5 pg (27.0-33.0); Mean Corpuscular Volume 91.9 fL (80.0-98.0); Mean Platelet Volume 10.1 fL (9.4-12.3); Monocytes Absolute Auto 0.4 X10*3/uL (0.1-1.2); Neutrophils Absolute Auto 3.5 x10*3/uL (2.0-8.3); Neutrophils Percent Auto 57.3 % (45-73); Platelet Count 187 X10*3/uL (160-400); Red Blood Count 3.97 X10*6/uL (4.20-5.50); Red Cell Distribution Width 12.2 % (11.0-16.0)
[2023-05-06 12:19] LABS: Alanine Aminotransferase 25 U/L (0-31); Albumin Level 4.2 g/dL (3.5-5.0); Alkaline Phosphatase 93 U/L (39-117); Anion Gap 10 (12-20); Aspartate Amino Transferase 21 U/L (5-31); Bilirubin Total 0.3 mg/dL (0.0-1.0); Blood Urea Nitrogen 12 mg/dL (9-16); Calcium 9.4 mg/dL (8.4-10.2); Carbon Dioxide 28 mmol/L (22-29); Chloride 109 mmol/L (96-108); Creatinine Clr Calc Pharmacy 50.7; Estimated Glomerular Filt Rate > 60; Glucose Random 178 mg/dL (60-115); Magnesium 1.9 mg/dL (1.6-2.6); Sodium 143 mmol/L (135-145); Total Protein 7.1 g/dL (6.5-8.0)
[2023-05-06] MEDS: iohexoL 350 MG/ML 100 ML INFUS..BTL 85 ML IV (17:46)
[2023-05-06 19:45] LABS: Appearance Urine Clear; Color Urine Yellow; Glucose Urine UA Negative (Negative); Leukocyte Esterase Urine Negative (Negative); Nitrite Urine Negative (Negative); PH 8.5 (5.0-9.0); Specific Gravity - Urine >= 1.030 (1.005-1.025); Urine Blood Negative (Negative); Urine Ketones Negative (Negative); Urine Protein Negative (Neg-Trace)
[2023-05-06] MEDS: cefuroxime axetiL 250 MG TABLET PO (19:54)
== END 2023-05-06 19:59 | disposition home or self-care (01) ==
PROVIDERS: Physician Assistant Medical; Emergency Provider Emergency Medicine; PCP General Practice
DX: S20.211A Contusion of right front wall of thorax, initial encounter (principal); R07.81 Pleurodynia; R10.9 Unspecified abdominal pain; R11.2 Nausea with vomiting, unspecified; R10.2 Pelvic and perineal pain; F17.210 Nicotine dependence, cigarettes, uncomplicated; W01.0XXA Fall on same level from slipping, tripping and stumbling without subsequent striking against object, initial encounter; Y93.9 Activity, unspecified; Y92.9 Unspecified place or not applicable; Y99.8 Other external cause status; Z79.899 Other long term (current) drug therapy
CPT/HCPCS: 36415; 71260; 74177; 80053; 81003; 83735; 85025; 99282; 99284; Q9967

== ENCOUNTER 2023-05-10 11:37 | Outpatient (AMB) | payer OTHER, SELFPAY ==
--- NOTE | 2023-05-10 11:44 | A.OFFVIS_ITS ---
Intake Vital Signs 05/10/23 11:57 Height 4 ft 9 in Weight 128 lb BMI 27.7 BP 137/70 Blood Pressure Location Rt brachial Position Sitting Pulse 69 Intake Visit Reasons: s/p colon Intake Note: Patient returns to in office visit today in [facility] [place] s/p colonscopy. CC: Patient c/o RUQ abdominal pain and RT back pain. Patient states that she was found to have a polyp in her lung. Patient reports rectal bleeding with BM before colonoscopy. She reports occasional nausea. Pt was seen in the ER s/p fall on 05/06/23. Documentation Analyst Required: Yes Allergies morphine [MORPHINE] Allergy (Intermediate, Verified 05/10/23 12:02) GI UPSET,TACHYCARDIA clams Adverse Reaction (Intermediate, Verified 05/10/23 12:02) GI UPSET rosiglitazone [From AVANDIA] Adverse Reaction (Unknown, Verified 05/10/23 12:02) PEDAL EDEMA clam Allergy (Unknown, Uncoded 05/06/23 11:43) unknown HPI s/p colon HPI Details Assessment & Plan (1) RUQ abdominal pain: Code(s): R10.11 - Right upper quadrant pain Plan: ALWAYS CALL HER MINERAL SURVEYING TECHNICIAN TO SCHEDULE APPTS; call MINERAL SURVEYING TECHNICIAN Annelise, She is due for a colonoscopy repeat She found the albuterol inhaler helpful and now does not need to use it. She has been having RB in her stooling lately and hemorrhoids that have been in and out. Had cream but not using the cone to get inside. Asks about surgery - educated probably not the best course. He would be better for her to utilize the cream appropriately getting it inside the colon so it can heal from the inside out. The She continues sucralfate PRN and ran out of dicyclomine that helped with the RUQ pain. WIll be picking up now. She is having a feeling of tenesmus that is probably because she is out of her dicyclomine that might be contributing to her hemorrhoidal issues. She is agreeable to a colonoscopy. There are no prior problems with anesthesia or sedation. She now feels her asthma is well controlled and she denies any cardiac problems. There are no infectious disease problems. She had a tubular adenoma 5 years ago. Return office visit in 6 months and also after the colonoscopy.. 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 Panel Today Z01.818 - Encounte r for other prepro cedural examinatio n Complete Blood Cou nt Auto Diff Today Z01.818 - Encounte r for other prepro cedural examinatio n Vitamin B12 and Fo late Today K29.40 - Chronic a trophic gastritis without bleeding Medications: New peg 3350-electroly vida 236-22.74-6.74 -5.86 gram (Golyt caroline) until feca l effluent is ida r; do not exceed a total volume of 2 ,000 mL 240 mL PO Q10M 1 day 4,000 mL 0RF Z12.11 - Encounter for screening for malignant neoplas m of colon hydrocortisone 2.5 % (Proctosol HC) BE SURE TO INCLU DE RECTAL APPICATO R!! 1 appl MD BID 30 grams 6RF hemorrho ids K64.9 - Unspecifie d hemorrhoids Refilled methylcellulose (l axative) (Citrucel ) 500 mg PO BID 60 tabs 6RF pantoprazole 20 mg PO QAM 90 t abs 1RF K21.9 - Gastro-eso phageal reflux dis ease without esoph agitis sucralfate (Carafa te) 30 mL PO QNOON 42 0 mL 3RF LABS: Laboratory Tests 08/16/22 08/16/22 08/16/22 13:55 13:55 13:55 WBC 7.7 RBC Hgb 11.3 L Hct 33.5 L MCV 92.5 MCH 31.2 Estimated GFR Random Glucose Total Bilirubin 0.3 AST 84 H ALT 66 H Alkaline Phosphata se 115 Vitamin B12 327 Folate 12.9 05/06/23 05/06/23 05/06/23 11:49 11:49 11:49 WBC 6.0 RBC 3.97 L Hgb 12.5 Hct 36.5 L MCV 91.9 MCH 31.5 Estimated GFR > 60 Random Glucose 178 H Total Bilirubin 0.3 AST 21 ALT 25 Alkaline Phosphata se 93 Vitamin B12 Folate COLONOSCOPY 04/29/23 Findings: Terminal Ileum: Not evaluated Cecum: A 15 to 18 mm flat polyp proximal to the ICV. Polyp was raised with 5 cc of Eleview and removed with a hot stiif snare. Polypectomy site was closed with 1 hemoclip and marked with Britta ink Two 8 to 10 mm sessile polyps - removed with a hot snare A 2-3 mm sessile polyp - removed with a cold biopsy Ascending Colon: A 10-12 mm sessile polyp on a fold in the distal ascending colon - removed with a hot snare Transverse Colon: Normal Descending Colon: Moderate diverticulosis Sigmoid Colon: Severe diverticulosis with luminal narrowing Rectum: Normal Ano-rectum: Moderate inflamed internal hemorrhoids Impression and Post Procedure Diagnosis: Colonoscopy Findings: One small and four medium sized polyps removed Moderate to severe diverticulosis seen in the left colon Moderate hemorrhoids on retroflexed exam - likely source of rectal bleed Plan: Await pathology results Patient has an appointment on 05/10/23 in the GI Clinic with Luda Wyatt NP. Repeat Colonoscopy interval based on path results - in 3 - 5 years if polyps are adenomatous and due to history of adenomatous colon polyps. BIOPSY ? Received: 04/29/23 Diagnosis A. Colon, cecal polyps: Tubular adenomas (multiple pieces); negative for high- grade dysplasia and carcinoma. B. Colon, ascending, polyp: Tubular adenoma; negative for high-grade dysplasia and carcinoma TODAY'S VISIT [place] #Alley Nath ALWAYS CALL HER MINERAL SURVEYING TECHNICIAN TO SCHEDULE APPTS; call MINERAL SURVEYING TECHNICIAN Annelise, The procedure should be repeated in 3 years. The procedure was well tolerated. The results were explained and the patient is agreeable to the follow-up interval as stated. The bowel pattern has returned to normal. Education was provided to tell any 1st degree relatives about their findings to be sure that they are screened by age 45. Educated that they will be put on a recall list when it is time for their repeat scope but should they move out of state or away from the hospital they will need to remember along with their primary to repeat the procedure in a timely fashion to avoid any adverse complications. She continues on her sucralfate as needed, dicyclomine, and pantoprazole with sufficient control of her GI conditions. Return office visit in 6 months [facility] Medical History Incisional hernia Sebaceous cyst of axilla HTN (hypertension) Diabetes Surgical History Status post right knee replacement History of back surgery Hx of cholecystectomy Hx of endoscopy History of colonoscopy Family History Father No problems noted. Mother No problems noted. Social History Alcohol intake: never Patient Tobacco Use Status: Current everyday Tobacco user Cigarettes Per Day: 5 Review of Systems Const Denies fatigue, Denies fever(s), Denies night sweats, Denies poor appetite and Denies weight loss Eyes Details: glasses Reports requires corrective lenses ENT Reports Normal hearing present, Denies dental pain, Denies dysphagia, Denies hearing loss, Denies mouth pain, Denies odynophagia, Denies throat swelling, Den ies tongue swelling and Reports other (Dentition adequate) Card Reports no additional complaints Resp Reports no additional complaints GI Details: Denies abdominal pain, Denies melena, Denies bloating, Denies hematochezia, Reports constipation, Reports GI cramping, Denies dysphagia, Denies excessive flatus, Denies early satiety, Reports heartburn, Denies diarrhea, Denies nausea, Denies odynophagia, Denies vomiting and Denies hematemesis Skin/Breast Denies pruritus, Denies lesions, Denies rash and Denies jaundice Neuro Reports Normal hearing present and Denies Abnormal speech present Endo Denies fatigue Aller/Immun Denies throat swelling and Denies tongue swelling Physical Exam Vital Signs: Last Vital Signs Pulse 69 05/10/23 11:57 BP 137/70 05/10/23 11:57 BMI result Body Mass Index 27.7 Const General: cooperative, no acute distress, well developed and well groomed Nutritional Appearance: average body habitus and well nourished Orientation/consciousness: oriented to person, oriented to place and oriented to time Limitations: language barrier and other limitations HEENT Head: Yes normocephalic and Yes atraumatic Eyes General: appearance normal, both eyes and all related structures Pupils: Equal, round and reactive pupils present Neck Neck: Yes normal visual inspection and Yes no lymphadenopathy Thyroid: Thyroid normal Resp Effort & Inspection: normal respiratory effort and able to speak in complete sentences Auscultation: clear to auscultation bilaterally Cardio Rate: regular rate Rhythm: regular rhythm Heart sounds: Normal, physiologic split S2 sound present Peripheral pulses: radial pulses present and posterior tibial pulses present GI Inspection: No distended, No Abdominal panniculus present and Yes obesity Palpation (GI): Soft to palpation, nontender, no guarding, not rigid and No hepatosplenomegaly present Percussion: Yes normal to percussion Auscultation: normal bowel sounds Rectal Exam - Female: deferred Skin General skin exam: no rashes or lesions noted, turgor normal, skin not dry, no jaundice, No spider nevi and no striae Rashes: no rashes Nails: normal Neuro General: oriented to person, oriented to place and oriented to time Cranial nerves: Yes Equal, round and reactive pupils present and Yes Normal hearing present Speech: No Abnormal speech present Extrem General: Yes normal to inspection, No clubbing, No cyanosis and No edema Psych Appearance: grossly normal and well kempt Mental Status: mental status grossly normal Speech and movement: Normal speech and movement present Affect: normal affect Attitude: cooperative Thought process: Normal thought process present and not confabulating Thought content: Normal thought content present Insight: Limited insight present (Psych) Judgement: Limited judgement present (Psych) Results Reviewed Results Reviewed: Laboratory Tests 08/16/22 08/16/22 08/16/22 13:55 13:55 13:55 WBC 7.7 RBC Hgb 11.3 L Hct 33.5 L MCV 92.5 MCH 31.2 Estimated GFR Random Glucose Total Bilirubin 0.3 AST 84 H ALT 66 H Alkaline Phosphatase 115 Vitamin B12 327 Folate 12.9 05/06/23 05/06/23 05/06/23 11:49 11:49 11:49 WBC 6.0 RBC 3.97 L Hgb 12.5 Hct 36.5 L MCV 91.9 MCH 31.5 Estimated GFR > 60 Random Glucose 178 H Total Bilirubin 0.3 AST 21 ALT 25 Alkaline Phosphatase 93 Vitamin B12 Folate COLONOSCOPY 04/29/23 Findings: Terminal Ileum: Not evaluated Cecum: A 15 to 18 mm flat polyp proximal to the ICV. Polyp was raised with 5 cc of Eleview and removed with a hot stiif snare. Polypectomy site was closed with 1 hemoclip and marked with Britta ink Two 8 to 10 mm sessile polyps - removed with a hot snare A 2-3 mm sessile polyp - removed with a cold biopsy Ascending Colon: A 10-12 mm sessile polyp on a fold in the distal ascending colon - removed with a hot snare Transverse Colon: Normal Descending Colon: Moderate diverticulosis Sigmoid Colon: Severe diverticulosis with luminal narrowing Rectum: Normal Ano-rectum: Moderate inflamed internal hemorrhoids Impression and Post Procedure Diagnosis: Colonoscopy Findings: One small and four medium sized polyps removed Moderate to severe diverticulosis seen in the left colon Moderate hemorrhoids on retroflexed exam - likely source of rectal bleed Plan: Await pathology results Patient has an appointment on 05/10/23 in the GI Clinic with Luda Wyatt NP. Repeat Colonoscopy interval based on path results - in 3 - 5 years if polyps are adenomatous and due to history of adenomatous colon polyps. BIOPSY ? Received: 04/29/23 Diagnosis A. Colon, cecal polyps: Tubular adenomas (multiple pieces); negative for high- grade dysplasia and carcinoma. B. 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 The procedure was well tolerated. The results were explained and the patient is agreeable to the follow-up interval as stated. The bowel pattern has returned to normal. Education was provided to tell any 1st degree relatives about their findings to be sure that they are screened by age 45. Educated that they will be put on a recall list when it is time for their repeat scope but should they move out of state or away from the hospital they will need to remember along with their primary to repeat the procedure in a timely fashion to avoid any adverse complications. She continues on her sucralfate as needed, dicyclomine, and pantoprazole with sufficient control of her GI conditions. Return office visit in 6 months Medications: Refilled sucralfate (Carafate) 30 mL PO QNOON 420 mL 6RF methylcellulose (laxative) (Citrucel) 500 mg PO BID 60 tabs 6RF pantoprazole 20 mg PO QAM 90 tabs 3RF K21.9 - Gastro-esophageal reflux disease without esophagitis Coding Level of Care Code Est Pt Level 4 (84035) Diagnoses Tubular adenoma of colon D12.6 GERD (gastroesophageal reflux disease) K21.9 Atrophic gastritis K29.40 Bile salt-induced diarrhea K90.89 Hemorrhoids, internal, with bleeding K64.8
[2023-05-10 11:57] VITALS: BP 137/70; PULSE 69; BMI 27.7
== END 2023-05-10 12:22 | disposition home or self-care (01) ==
PROVIDERS: PCP General Practice; Visit Provider Nurse Practitioner
DX: D12.6 Benign neoplasm of colon, unspecified (principal); K21.9 Gastro-esophageal reflux disease without esophagitis; K29.40 Chronic atrophic gastritis without bleeding; K90.89 Other intestinal malabsorption; K64.8 Other hemorrhoids
CPT/HCPCS: 99214

== ENCOUNTER → 2023-05-10 11:37 | Outpatient (BNVA) | payer OTHER, SELFPAY | PROVIDERS: PCP General Practice; Visit Provider Nurse Practitioner | DX: K21.9 Gastro-esophageal reflux disease without esophagitis (principal); K29.40 Chronic atrophic gastritis without bleeding; K90.89 Other intestinal malabsorption; K64.8 Other hemorrhoids; D12.6 Benign neoplasm of colon, unspecified | CPT/HCPCS: 99212 ==

== ENCOUNTER 2023-11-08 15:09 | Outpatient (AMB) | payer OTHER, SELFPAY ==
--- NOTE | 2023-11-08 15:11 | A.OFFVIS_ITS ---
Vital Signs 11/08/23 15:19 Height 4 ft 9 in Weight 130 lb BMI 28.1 BP 140/83 H Blood Pressure Location Lt brachial Position Sitting Pulse 67 Intake Visit Reasons: 6 month follow up IBS Intake Note: Cheryl presents to in office follow up of IBS. CC: Patient c/o hemorrhoids bleeding and discomfort. She would like to discuss hemorrhoidectomy. She also reports seeing like a slimmy substance coming out of her rectum. Surgical Training Specialist Required: Yes Surgical Training Specialist Name: Fátima [id number] Accompanied by: GALLEY BOY Allergies morphine [MORPHINE] Allergy (Intermediate, Verified 12/02/23 14:23) GI UPSET,TACHYCARDIA clams Adverse Reaction (Intermediate, Verified 12/02/23 14:23) GI UPSET rosiglitazone [From AVANDIA] Adverse Reaction (Unknown, Verified 12/02/23 14:23) PEDAL EDEMA clam Allergy (Unknown, Uncoded 12/02/23 14:23) unknown HPI HPI 6 month follow up IBS: Details: Assessment & Plan (1) Tubular adenoma of colon: Comment: 2023 scope equals TA repeat 5 years, 2018 scope repeat in 5 years Code(s): D12.6 - Benign neoplasm of colon, unspecified (2) GERD (gastroesophageal reflux disease): Code(s): K21.9 - Gastro-esophageal reflux disease without esophagitis (3) Atrophic gastritis: Comment: EGD 2017 Code(s): K29.40 - Chronic atrophic gastritis without bleeding (4) Bile salt-induced diarrhea: Code(s): 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 The procedure was well tolerated. The results were explained and the patient is agreeable to the follow-up interval as stated. The bowel pattern has returned to normal. Education was provided to tell any 1st degree relatives about their findings to be sure that they are screened by age 45. Educated that they will be put on a recall list when it is time for their repeat scope but should they move out of state or away from the hospital they will need to remember along with their primary to repeat the procedure in a timely fashion to avoid any adverse complications. She continues on her sucralfate as needed, dicyclomine, and pantoprazole with sufficient control of her GI conditions. Return office visit in 6 months Medications: Refilled sucralfate (Carafate) 30 mL PO QNOON 420 mL 6RF methylcellulose (laxative) (Citrucel) 500 mg PO BID 60 tabs 6RF pantoprazole 20 mg PO QAM 90 tabs 3RF K21.9 - Gastro-esophageal reflux disease without esophagitis TODAY'S VISIT IVORIAN #[id number] ALWAYS CALL HER GALLEY BOY TO SCHEDULE APPTS; call GALLEY BOY Annelise, She continues on her sucralfate as needed, dicyclomine, creon and pantoprazole with sufficient control of her GI conditions. She also has been using proctosol cream, but is quite concerned about her bleeding hemorrhoids. She is asking for referral to surgery to discuss if hemorrhoidectomy is possible for her. I will generate the referral. She says sometimes I bleed on the floor. She is also reporting mucus in her stooling, but she is only taking the sucralfate when I have diarrhea. 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 She has been having trouble with cramping in her legs, apparently r/t PAD. After discussion, it seems they were having trouble getting the sucralfate in t eh liquid form. There HAS been a shortage of this in this form, and I advise her as such but she says she has it in the house now. ROV 8 weeks. [facility] Medical History (Updated 12/02/23 @ 14:49 by Vinicio Kuo MD) Hemorrhoids that prolapse with straining, but retract spontaneously RUQ abdominal pain Asthma exacerbation Periumbilical abdominal pain Elevated lipase Urinary frequency Cellulitis Wound of left lower extremity Hemorrhoids, internal, with bleeding Lumbar radiculopathy IBS (irritable bowel syndrome) Wheezing Cough Pre-op examination Incisional hernia Sebaceous cyst of axilla HTN (hypertension) Diabetes Surgical History Status post right knee replacement History of back surgery Hx of cholecystectomy Hx of endoscopy History of colonoscopy Family History Father No problems noted. Mother No problems noted. Social History Alcohol intake: never Patient Tobacco Use Status: Current everyday Tobacco user Cigarettes Per Day: 5 Review of Systems Const Denies fatigue, Denies fever(s), Denies night sweats, Denies poor appetite and Denies weight loss ENT Reports Normal hearing present, Denies dental pain, Denies dysphagia, Denies hearing loss, Denies mouth pain, Denies odynophagia, Denies throat swelling, Denies tongue swelling and Reports other (Dentition adequate) Card Reports no additional complaints Resp Reports no additional complaints GI Details: Denies abdominal pain, Denies melena, Reports bloating, Denies hematochezia, Den ies constipation, Denies GI cramping, Denies dysphagia, Denies excessive flatus, Denies early satiety, Reports heartburn, Reports diarrhea, Denies nausea, Denies odynophagia, Denies vomiting and Denies hematemesis Musc Reports muscle cramps Skin/Breast Denies pruritus, Denies lesions, Denies rash and Denies jaundice Neuro Reports Normal hearing present and Denies Abnormal speech present Endo Denies fatigue Aller/Immun Denies throat swelling and Denies tongue swelling Physical Exam Vital Signs: Last Vital Signs Pulse 67 11/08/23 15:19 BP 140/83 H 11/08/23 15:19 BMI result Body Mass Index 28.1 Const General: cooperative, no acute distress, well developed and well groomed Nutritional Appearance: average body habitus and well nourished Orientation/consciousness: oriented to person, oriented to place and oriented to time Limitations: language barrier HEENT Head: Yes normocephalic and Yes atraumatic Eyes General: appearance normal, both eyes and all related structures Pupils: Equal, round and reactive pupils present Neck Neck: Yes normal visual inspection and Yes no lymphadenopathy Thyroid: Thyroid normal Resp Effort & Inspection: normal respiratory effort and able to speak in complete sentences Auscultation: clear to auscultation bilaterally Cardio Rate: regular rate Rhythm: regular rhythm Heart sounds: Normal, physiologic split S2 sound present Peripheral pulses: radial pulses present and posterior tibial pulses present GI Inspection: No distended and No Abdominal panniculus present Palpation (GI): Soft to palpation, nontender, no guarding, not rigid and No hepatosplenomegaly present Percussion: Yes normal to percussion Auscultation: normal bowel sounds Rectal Exam - Female: deferred Skin General skin exam: no rashes or lesions noted, turgor normal, skin not dry, no jaundice, No spider nevi and no striae Rashes: no rashes Nails: normal Neuro General: oriented to person, oriented to place and oriented to time Cranial nerves: Yes Equal, round and reactive pupils present and Yes Normal hearing present Speech: No Abnormal speech present Extrem General: Yes normal to inspection, No clubbing, No cyanosis and No edema Psych Appearance: grossly normal and well kempt Mental Status: mental status grossly normal Speech and movement: Normal speech and movement present Affect: normal affect Attitude: cooperative Thought process: Normal thought process present and not confabulating Thought content: Normal thought content present Insight: Limited insight present (Psych) Judgement: Limited judgement present (Psych) Assessment & Plan Assessment & Plan (1) GERD (gastroesophageal reflux disease): Code(s): K21.9 - Gastro-esophageal reflux disease without esophagitis Category: Medical (2) Atrophic gastritis: Comment: EGD 2018 Code(s): K29.40 - Chronic atrophic gastritis without bleeding Category: Medical (3) Bile salt-induced diarrhea: Code(s): K90.89 - Other intestinal malabsorption Category: Medical Plan IVORIAN #[id number] ALWAYS CALL HER GALLEY BOY TO SCHEDULE APPTS; call GALLEY BOY Annelise, She continues on her sucralfate as needed, dicyclomine, creon and pantoprazole with sufficient control of her GI conditions. She also has been using proctosol cream, but is quite concerned about her bleeding hemorrhoids. She is asking for referral to surgery to discuss if hemorrhoidectomy is possible for her. I will generate the referral. She says sometimes I bleed on the floor. She is also reporting mucus in her stooling, but she is only taking the sucralfate when I have diarrhea. 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 She has been having trouble with cramping in her legs, apparently r/t PAD. After discussion, it seems they were having trouble getting the sucralfate in bruna liquid form. There HAS been a shortage of this in this form, and I advise her as such but she says she has it in the house now. ROLidia 8 weeks. Orders: Referrals General Surgery Referral K64.9 - Unspecified hemorrhoids Medications: New [id number] 3,000-9,500- 15,000 unit (Creon) 2 caps PO BID 120 caps 6RF hydrocortisone 2.5% (Proctosol HC) BE SURE TO INCLUDE RECTAL APPICATOR!! 1 appl GA BID 30 grams 6RF hemorrhoids K64.9 - Unspecified hemorrhoids Refilled dicyclomine 40 mg (2 x 20 mg) PO QID 240 tabs 3RF K58.9 - Irritable bowel syndrome without diarrhea methylcellulose (laxative) (Citrucel) 500 mg PO BID 60 tabs 6RF pantoprazole 20 mg PO QAM 90 tabs 3RF K21.9 - Gastro-esophageal reflux disease without esophagitis sucralfate (Carafate) 30 mL PO QNOON 420 mL 6RF Discontinued hydrocortisone 2.5% Discontinued Reason: Duplicate 1 appl GA Q12H 2 weeks 30 grams 2RF K64.8 - Other hemorrhoids Coding Level of Care Code Est Pt Level 3 (49372) Diagnoses GERD (gastroesophageal reflux disease) K21.9 Atrophic gastritis K29.40 Bile salt-induced diarrhea K90.89
[2023-11-08 15:19] VITALS: BP 140/83; PULSE 67; BMI 28.1
== END 2023-11-08 15:55 | disposition home or self-care (01) ==
PROVIDERS: PCP General Practice; Visit Provider Nurse Practitioner
DX: K21.9 Gastro-esophageal reflux disease without esophagitis (principal); K29.40 Chronic atrophic gastritis without bleeding; K90.89 Other intestinal malabsorption
CPT/HCPCS: 99213

== ENCOUNTER → 2023-11-08 15:09 | Outpatient (BNVA) | payer OTHER, SELFPAY | PROVIDERS: PCP General Practice; Visit Provider Nurse Practitioner | DX: K58.9 Irritable bowel syndrome, unspecified (principal); K64.8 Other hemorrhoids; K21.9 Gastro-esophageal reflux disease without esophagitis; K29.40 Chronic atrophic gastritis without bleeding; K90.89 Other intestinal malabsorption | CPT/HCPCS: 99212 ==

== ENCOUNTER 2023-12-02 14:12 | Outpatient (AMB) | payer OTHER, SELFPAY ==
--- NOTE | 2023-12-02 14:07 | MHC.OFFVIS ---
Intake Visit Reasons: Hemorrhoids Intake Note: Patient is seen in office for evaluation and treatment of hemorrhoids. Pt c/o: onset many yrs, admits to external hemorrhoids, bleeding stool/toilet/underwear, pain, itchy, mucous discharge, straining, denies n/v/d/c Review Coordinator Required: Yes Review Coordinator Language: Shoe [employer]er Services: Review Coordinator Present Review Coordinator Name: Giulia ALFONSO Information Interpreted: non-clinical & clinical Accompanied by: Other Relationship Allergies morphine [MORPHINE] Allergy (Intermediate, Verified 12/02/23 14:23) GI UPSET,TACHYCARDIA clams Adverse Reaction (Intermediate, Verified 12/02/23 14:23) GI UPSET rosiglitazone [From AVANDIA] Adverse Reaction (Unknown, Verified 12/02/23 14:23) PEDAL EDEMA clam Allergy (Unknown, Uncoded 12/02/23 14:23) unknown Medication List - Last Reconciled 12/02/23 by Vinicio Kuo MD albuterol sulfate 90 mcg/actuation (Ventolin HFA) 1 inh inhalation QID PRN atorvastatin 40 mg PO QPM blood sugar diagnostic (FreeStyle Lite Strips) As directed calcium carbonate (Antacid Ext Str (calcium carb)) 1 tab PO BID calcium polycarbophil (Fiber-Lax) mg PO clonazepam 1 mg PO BID PRN dicyclomine 40 mg (2 x 20 mg) PO QID duloxetine 60 mg PO DAILY gabapentin 600 mg PO TID hydrocortisone 2.5% (Proctosol HC) 1 appl UT BID lancets (TRUEplus Lancets) As directed [id number] 3,000-9,500- 15,000 unit (Creon) 2 caps PO BID lisinopril 40 mg PO QAM metformin 500 mg PO BID methylcellulose (laxative) (Citrucel) 500 mg PO BID metoprolol tartrate 50 mg PO BID multivitamin 1 tab PO DAILY nifedipine ER 30 mg PO DAILY pantoprazole 20 mg PO QAM sucralfate (Carafate) 30 mL PO QNOON HPI HPI Hemorrhoids: Details: [age] year old female referred for hemorrhoid issues. She says that she has had hemorrhoids for a couple of years now. She describes having problems with prolapse, pain and discomfort. She says that her hemorrhoids often have this mucus discharge . She also notices small amounts of blood with bowel movements on and off. She had a colonoscopy last year which showed benign polyps. She admits to constipation periodically. She takes Citrucel for this which she says helps a lot. [facility] Medical History (Updated 12/02/23 @ 14:49 by Vinicio Kuo MD) Hemorrhoids that prolapse with straining, but retract spontaneously RUQ abdominal pain Asthma exacerbation Periumbilical abdominal pain Elevated lipase Urinary frequency Cellulitis Wound of left lower extremity Hemorrhoids, internal, with bleeding Lumbar radiculopathy IBS (irritable bowel syndrome) Wheezing Cough Pre-op examination Incisional hernia Sebaceous cyst of axilla HTN (hypertension) Diabetes Surgical History Status post right knee replacement History of back surgery Hx of cholecystectomy Hx of endoscopy History of colonoscopy Family History Father No problems noted. Mother No problems noted. Social History Alcohol intake: never Patient Tobacco Use Status: Current everyday Tobacco user Cigarettes Per Day: 5 Review of Systems Const Denies chills and Denies fever(s) Card Denies chest pain, Denies dyspnea and Denies dyspnea on exertion Resp Denies cough, Denies dyspnea and Denies dyspnea on exertion GI Reports hematochezia and Denies change in bowel habits Denies hematuria Musc Reports abnormal gait, Reports back pain, Reports arthralgias and Reports limited range of motion Neuro Reports abnormal gait, Denies focal weakness and Denies convulsions Psych Denies depression and Denies mood swings Physical Exam Const Other: Using a walker General: comfortable and no acute distress Orientation/consciousness: patient oriented x3 Neck Neck: Yes no lymphadenopathy Resp Auscultation: clear to auscultation bilaterally Cardio Rhythm: regular rhythm GI Other: Rectal exam shows small external hemorrhoids on the right side Palpation (GI): Soft to palpation, nontender and no guarding Neuro General: patient oriented x3 Office Procedures Anoscopy She was in meagan-knife position. The anoscope was gently inserted. A full examination of the entire anal canal was done. She did have this moderate-sized hemorrhoids, mostly internal on the right side with some note of irritation. There were no other lesions. These seems to prolapse easily. There was no bleeding. There was no induration on digital exam [id number] Assessment & Plan Assessment & Plan (1) Hemorrhoids that prolapse with straining, but retract spontaneously: Code(s): K64.1 - Second degree hemorrhoids Category: Medical Plan: She has this hemorrhoids mostly internal that prolapses on and off. She describes discomfort and frequent pain and swelling with this. I will try her on some suppositories for the discomfort However, told her that I can try to do rubber band ligation on her next visit in the office. I explained to her the technique of this procedure. I reviewed the risks, benefits, and alternatives. She understands. I will see her in the office in about 3 weeks. Coding Level of Care Code New Pt Level 3 (98130) Diagnoses Hemorrhoids that prolapse with straining, but retract spontaneously K64.1 CPT Codes Details - CPT: 77940-Wnsxystx ([id number])
== END 2023-12-02 14:52 | disposition home or self-care (01) ==
PROVIDERS: PCP General Practice; Referring Provider Nurse Practitioner; Visit Provider Surgery
DX: K64.1 Second degree hemorrhoids (principal)
CPT/HCPCS: 46600; 99203

== ENCOUNTER → 2023-12-02 14:12 | Outpatient (BNVA) | payer OTHER, SELFPAY | PROVIDERS: PCP General Practice; Referring Provider Nurse Practitioner; Visit Provider Surgery | DX: K64.1 Second degree hemorrhoids (principal) | CPT/HCPCS: 46600; 99202 ==

== ENCOUNTER 2023-12-24 14:06 | Outpatient (AMB) | payer OTHER, SELFPAY ==
--- NOTE | 2023-12-24 14:12 | A.OFFVIS_ITS ---
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 Left leg is painful, feels cramping in both legs. States she has leg pain that runs down her legs into her feet. 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 Complaints include pain over varicosities, swelling of lower extremities, cramping, fatigue, and heaviness of the lower extremities. It has been affecting there daily activities including walking. She reports that this has been an issue for nearly 4 years in duration. It is noted more so in right leg. Patient denies any previous venous surgery or injections. Patient denies any history of DVT/ PE. Patient denies any history of phlebitis. Trial of compression includes - [id number] They now present for vascular evaluation regarding their varicose veins. [facility] Medical History Hemorrhoids that prolapse with straining, but retract spontaneously RUQ abdominal pain Asthma exacerbation Periumbilical abdominal pain Elevated lipase Urinary frequency Cellulitis Wound of left lower extremity Hemorrhoids, internal, with bleeding Lumbar radiculopathy IBS (irritable bowel syndrome) Wheezing Cough Pre-op examination Incisional hernia Sebaceous cyst of axilla HTN (hypertension) Diabetes Surgical History Status post right knee replacement History of back surgery Hx of cholecystectomy Hx of endoscopy History of colonoscopy Family History Father No problems noted. Mother No problems noted. Social History Alcohol intake: never Patient Tobacco Use Status: Current everyday Tobacco user Cigarettes Per Day: 5 Review of Systems Const Reports as per HPI ENT Reports no additional complaints Card Denies chest pain, Denies chest pain at rest and Denies chest pain with activity Resp Denies chest congestion and Denies cough GI Reports no additional complaints Musc Details: pain over varicosities, aching of lower extremities, swelling, cramping, heaviness and tiredness, itching Denies abnormal gait Skin/Breast Reports pruritus and Denies wounds Neuro Reports no additional complaints and Denies abnormal gait Psych Denies no additional complaints Physical Exam Const General: cooperative, healthy appearing and comfortable Orientation/consciousness: oriented to person, oriented to place and oriented to time Neck Carotids: no bruits Chest Chest palpation & inspection: normal inspection of the chest and normal palpation of entire chest wall Resp Effort & Inspection: normal respiratory effort and able to speak in complete sentences Cardio Rate: regular rate Heart sounds: S1 normal heart sound present and S2 normal heart sound present Peripheral pulses: Peripheral pulses 2+ throughout GI Inspection: Yes normal to inspection Skin Other: +2 edema, large rope-like varicosities greater than 4 mm CEAP Classification C4 - skin color changes Ep - Etiology Primary As - superficial veins P - reflux General skin exam: dry skin Neuro General: oriented to person, oriented to place and oriented to time Extrem Right lower extremity: full ROM, normal capillary refill and edema Left lower extremity: full ROM, normal capillary refill and edema Psych Mental Status: mental status grossly normal Assessment & Plan Assessment & Plan (1) Varicose veins of right lower extremity with inflammation: Code(s): I83.11 - Varicose veins of right lower extremity with inflammation Category: Medical Plan: In short, the patient has evidence of venous insufficiency. I have discussed the pathophysiology with the patient. In addition I have provided informational material regarding venous disease to the patient. We have discussed conservative measures including compression, elevation, and exercise. I have also provided a handout regarding appropriate use of compression stockings and where to purchase good compression stockings as well. I have taken the liberty of ordering venous insufficiency testing with the patient. They will follow up with me after testing. The patient had an opportunity to ask questions regarding the treatment plan. All questions were answered. Imaging studies, laboratory studies and physical exam results were discussed and reviewed in detail. No major barriers to understanding were identified. The patient expressed understanding and agreement with the above treatment plan. The patient is aware they should contact our office by phone for worsening of the current condition or the appearance of new symptoms. Thank you for allowing me to participate in the vascular care of this patient. If you have any questions or concerns regarding the treatment for the above condition please do not hesitate to contact me. The office telephone contact is [phone]. This note is constructed using voice recognition software. While every effort has been made to ensure accuracy, logistic specialist errors may have been included. Thank you for allowing me to participate in the care of your patient. Yours sincerely, Asher Tavarez MD, FACS, R.P.V.I. Orders: Orders US venous duplex LE BI 1 Week I83.11 - Varicose veins of right lower extremity with inflammation Coding Level of Care Code New Pt Level 4 (91559) Diagnoses Varicose veins of right lower extremity with inflammation I83.11
== END 2023-12-24 14:52 | disposition home or self-care (01) ==
PROVIDERS: PCP General Practice; Visit Provider Surgery Vascular Surgery
DX: I83.11 Varicose veins of right lower extremity with inflammation (principal)
CPT/HCPCS: 99204

== ENCOUNTER → 2023-12-24 14:06 | Outpatient (BNVA) | payer OTHER, SELFPAY | PROVIDERS: PCP General Practice; Visit Provider Surgery Vascular Surgery | DX: I83.11 Varicose veins of right lower extremity with inflammation (principal) | CPT/HCPCS: 99202 ==

== ENCOUNTER 2023-12-27 12:49 | Emergency (ER) | payer OTHER, SELFPAY ==
--- NOTE | ~2023-12-27 | XR_ITS ---
EXAMINATION: XR CERVICAL SPINE CLINICAL INFORMATION: Midline neck pain. COMPARISON: Plain film dated November 02, 2020. CT scan of the cervical spine dated March 03, 2020. TECHNIQUE: 3 views of the cervical spine were obtained. FINDINGS: Mild disc degenerative change at C3-C4 and moderate disc degenerative change at C5-C7. Multilevel facet degenerative change. Approximately 2 mm anterior subluxation of C4 on C5. The above findings do not appear significantly changed compared with November 02, 2020. Vertebral body heights appear maintained. No fracture identified. Prevertebral soft tissues appear unremarkable. XR/XR cervical spine 3V IMPRESSION: Degenerative changes. Electronically signed by: Jonathan Grayson MD 12/27/2023 02:16 PM EDT
--- NOTE | 2023-12-27 12:59 | ED_ITS ---
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 Patient states that over the last 2 months she has had neck pain that hurts worse with movement and radiates up the back of her head and into both of her ears. Patient denies any dizziness, lightheadedness, abdominal pain, nausea, vomiting, fever, chills, blurry vision, double vision, loss of vision, chest pain, difficulty breathing, shortness of breath, back pain, night sweats, pain with urination, increased urinary frequency, increased urinary urgency, blood in her urine or stool, syncope or a near syncopal episode, recent trauma or falls, bowel incontinence, bladder incontinence, or any other complaints at this time. Location: neck Relieving factors: none Exacerbating factors: movement Associated symptoms: denies other symptoms Treatments prior to arrival: none Related Data Home Medications ?Medication ?Instructions ?Recorded ?Confirmed atorvastatin 40 mg tablet 40 mg PO QPM 01/29/20 12/02/23 gabapentin 600 mg tablet 600 mg PO TID 09/09/20 12/02/23 lisinopril 40 mg tablet 40 mg PO QAM 09/09/20 12/02/23 metformin 500 mg tablet 500 mg PO BID 09/09/20 12/02/23 metoprolol tartrate 50 mg tablet 50 mg PO BID 09/09/20 12/02/23 duloxetine 60 mg capsule,delayed 60 mg PO DAILY 09/04/21 12/02/23 release nifedipine 30 mg tablet,extended 30 mg PO DAILY 09/04/21 12/02/23 release 24 hr calcium carbonate (Antacid Ext Str 1 tab PO BID 10/17/21 12/02/23 (calcium carb)) blood sugar diagnostic (FreeStyle #10 ea 12/08/21 12/02/23 Lite Strips) lancets 33 gauge (TRUEplus Lancets) #100 ea 12/08/21 12/02/23 multivitamin 1 tab PO DAILY 12/08/21 12/02/23 calcium polycarbophil 625 mg mg PO 11/08/23 12/02/23 tablet (Fiber-Lax) clonazepam 1 mg tablet 1 mg PO BID PRN 12/02/23 12/02/23 acetaminophen 500 mg tablet 500 mg PO Q6H PRN 12/24/23 (Tylenol Extra Strength) Previous Rx's ?Medication ?Instructions ?Recorded albuterol sulfate 90 mcg/actuation 1 inh inhalation QID PRN shortness 02/22/22 aerosol inhaler (Ventolin HFA) of breath or wheezing #8.5 grams dicyclomine 20 mg tablet 40 mg (2 x 20 mg) PO QID #240 tabs 11/08/23 [id number] 2 cap PO BID #120 caps 11/08/23 3,000-9,500-15,000 unit capsule, delayed rel (Creon) methylcellulose (laxative) 500 mg 500 mg PO BID #60 tabs 11/08/23 tablet (Citrucel) pantoprazole 20 mg tablet,delayed 20 mg PO QAM #90 tabs 11/08/23 release sucralfate 100 mg/mL oral 30 ml PO QNOON #420 mL 11/08/23 suspension (Carafate) hydrocortisone acetate 25 mg 25 mg [place] BID PRN Hemorrhoid pain 12/02/23 rectal suppository (Anusol-HC) #24 ea hydrocortisone 2.5 % topical cream 1 appl KY BID hemorrhoids #30 grams 12/06/23 with perineal applicator (Proctosol HC) Allergies Allergy/AdvReac Type Severity Reaction Status Date / Time morphine [MORPHINE] Allergy Intermediate GI Verified 12/27/23 13:02 UPSET,TACHYCARDIA clams AdvReac Intermediate GI UPSET Verified 12/27/23 13:02 rosiglitazone [From AVANDIA] AdvReac Unknown PEDAL EDEMA Verified 12/27/23 13:02 clam Allergy Unknown unknown Uncoded 12/27/23 13:02 Review of Systems 2 Constitutional: Constitutional: Reports no additional constitutional complaints, Denies chills, Denies fever(s) and Denies night sweats Eyes: Eyes: Reports no additional eye complaints, Denies blurry vision, Denies change in vision, Denies diplopia, Denies eye discharge, Denies loss of vision and Denies eye pain ENT: Denies dizziness and Reports neck pain Cardiovascular: Cardiovascular: Reports no additional cardiovascular complaints, Denies chest pain, Denies lightheadedness, Denies Loss of Consciousness and Denies dyspnea Respiratory: Respiratory: Reports no additional respiratory complaints and Denies dyspnea Gastrointestinal: Gastrointestinal: Reports no additional gastrointestinal complaints, Denies abdominal pain, Denies melena, Denies hematochezia, Denies change in bowel habits and Denies change in stool character Genitourinary: Genitourinary: Denies hematuria, Denies urinary frequency, Denies dysuria, Denies urinary incontinence, Denies urinary hesitancy and Denies urinary urgency Musculoskeletal: Musculoskeletal: Reports no additional musculoskeletal complaints, Reports neck pain, Denies numbness and Denies tingling Neurologic: Denies dizziness, Denies loss of vision, Denies numbness and Denies tingling Psychiatric: Psychiatric: Reports no additional psychiatric complaints Endocrine: Endocrine: Reports no additional endocrine complaints Hematologic/Lymphatic: Hematologic/Lymphatic: Reports no additional hematologic/lymphatic complaints Allergic/Immunologic: Allergic/Immunologic: Reports no additional allergic/immunologic complaints PMF Past Medical History Attestation statement: The following information was validated with the patient. Source: old records reviewed and nursing notes reviewed Medical History Hemorrhoids that prolapse with straining, but retract spontaneously RUQ abdominal pain Asthma exacerbation Periumbilical abdominal pain Elevated lipase Urinary frequency Cellulitis Wound of left lower extremity Hemorrhoids, internal, with bleeding Lumbar radiculopathy IBS (irritable bowel syndrome) Wheezing Cough Pre-op examination Incisional hernia Sebaceous cyst of axilla HTN (hypertension) Diabetes Surgical History Status post right knee replacement History of back surgery Hx of cholecystectomy Hx of endoscopy History of colonoscopy Family History Family History Father No problems noted. Mother No problems noted. Social History Social History Alcohol intake: never Patient Tobacco Use Status: Current everyday Tobacco user Cigarettes Per Day: 5 Advance Directives: No Advance Directives Information Provided: No Physical Exam ED Vital Signs: Vital Signs - 24 hr 12/27/23 13:01 12/27/23 15:12 12/27/23 15:17 Temperature 96.8 F 98.2 F 98.2 F Pulse Rate 70 69 69 Respiratory Rate 18 16 16 Blood Pressure 129/99 H 125/76 125/76 Pulse Oximetry 96 96 96 Oxygen Delivery Method Room Air Room Air Room Air BMI result Body Mass Index 28.3 Const General: cooperative, no acute distress, alert and awake Nutritional Appearance: well nourished Orientation/consciousness: patient oriented x3 Limitations: no limitations HENMT Head: Yes normal to inspection and Yes atraumatic Ears: hearing grossly normal bilaterally and external ears normal General nose exam: Normal external nose present, no nasal discharge noted and no epistaxis Face and sinus: Yes normal facial exam, No abrasion and No laceration Mouth: Normal oral and palatal mucosa present, no drooling and no muffled voice Eyes General: appearance normal, both eyes and all related structures Periorbital: periorbital findings normal Eyelids: Yes eyelids normal Conjunctivae: conjunctivae normal Pupils: Equal, round and reactive pupils present EOM: EOMs intact bilaterally Neck Neck: Yes normal visual inspection, Yes full ROM and Yes no lymphadenopathy Chest Chest palpation & inspection: normal inspection of the chest Resp Effort & Inspection: normal respiratory effort and able to speak in complete sentences GI Inspection: Yes normal to inspection Neuro General: patient oriented x3 and moves all extremities Cranial nerves: Yes Equal, round and reactive pupils present Cognition (Neuro): normal cognition Extrem General: Yes normal to inspection, Yes full ROM and Yes capillary refill normal Psych Appearance: grossly normal Mental Status: mental status grossly normal Affect: normal affect Attitude: cooperative Thought process: Normal thought process present Thought content: Normal thought content present Insight: Good insight present (Psych) Course Course Course Narrative: This is a Rapid Medical Examination (RME) performed by Narinder Nichols PA-C in triage. Full HPI, ROS, assessment and treatment plan per primary provider in the Main ED. 78 yo hebrew speaking female hx of cholecystectomy, total hyst, depression,, fibromyalgia, spinal stenosis, osteopenia, diabetes, hypertension, GERD here for eval of neck pain x2-3 months. feels like a bone is breaking in her neck when she moves her head with pain radiating into the back of her head. also endorses bilateral ear pain x2 months. HAs at night. taking advil without relief. has appointment with PCP for this later this month. +ttp along midline cervical spine w/o step off deformity. pain w/ moving head side to side. no palpable cervical spasm. b/l EACs/ TMs wnl. Plan: basic labs, xr c spine Medical Decision Making Medical Decision Making [facility] Narrative: Patient is a 78 year old assigned female at with a history of osteopenia, DM, HTN, depression, and GERD presenting to the emergency department today with neck pain that radiates into her ears. Patient's physical exam was unremarkable. Patient's blood work was unremarkable. Patient's cervical xray showed degenerative changes but no other acute process. I explained my physical exam findings as well as all test results to the patient. I answered all questions asked by the patient. I stressed the importance of the patient taking her medication as directed (either prescribed or as the over the counter packaging recommends). I stressed the importance of the patient following up with her primary care provider and a soil fertility specialist. I stressed the importance of the patient returning to the emergency department immediately if her symptoms were to worsen or if she were to develop any dizziness, shortness of breath, difficulty breathing, chest pain, blurry vision, loss of vision, nausea, vomiting, abdominal pain, fever, chills, back pain, or any other complaints. Patient verbalized agreement and understanding with this treatment plan and discharge. Differential Diagnosis Differential Diagnoses: The differential diagnosis associated with the presentation includes Neck pain Cervical strain Cervical pain Cervical arthritis Admission/Observation Consideration of admission/observation: Escalation of care including admission/observation considered Patient would have been admitted to the hospital had her work up had any findings where hospital admission was appropriate and her clinical presentation warranted hospital admission. Lab Data [facility] Lab Attestation statement: I reviewed the patient's lab results. My interpretation of these results are in the [facility] Rationale portion of this note. 12/27/23 13:15 12/27/23 13:15 Labs: Lab Results 12/27/23 Range/Units 13:15 WBC 5.7 (4.8-10.8) X10*3/uL RBC 3.87 L (4.20-5.50) X10*6/uL Hgb 12.2 (12.0-16.0) g/dl Hct 35.6 L (37.0-47.0) % MCV 92.0 (80.0-98.0) fL MCH 31.5 (27.0-33.0) pg MCHC 34.3 (31.0-35.0) g/dl RDW 12.4 (11.0-16.0) % Plt Count 183 (160-400) X10*3/uL MPV 10.5 (9.4-12.3) fL Immature Gran % (Auto) 0.4 (0.0-0.4) % Neut % (Auto) 62.9 (45-73) % Lymph % (Auto) 27.5 (20-40) % [place] % (Auto) 6.7 (2-11) % Eos % (Auto) 2.1 (0-4) % Baso % (Auto) 0.4 (0-2) % Lymph # (Auto) 1.6 (1.2-4.9) X10*3/uL [place] # (Auto) 0.4 (0.1-1.2) X10*3/uL Eos # (Auto) 0.1 (0.0-0.4) X10*3/uL Baso # (Auto) 0.0 (0.0-0.2) X10*3/uL Abs Immat Gran (auto) 0.02 (0.00-0.03) X10*3/uL Absolute Neuts (auto) 3.6 (2.0-8.3) x10*3/uL Absolute Nucleated RBC 0.000 (0.0-0.012) X10*3/uL Nucleated RBC % (auto) 0.0 (0.0-0.2) /100WBC Sodium 141 (135-145) mmol/L Potassium 4.1 (3.3-5.1) mmol/L Chloride 109 H (96-108) mmol/L Carbon Dioxide 26 (22-29) mmol/L Anion Gap 10 L (12-20) BUN 13 (9-16) mg/dL Creatinine 0.70 (0.5-1.4) mg/dL Estim Creat Clear Calc 49.0 Estimated GFR > 60 Random Glucose 170 H (60-115) mg/dL Calcium 9.6 (8.4-10.2) mg/dL Magnesium 2.0 (1.6-2.6) mg/dL Total Bilirubin 0.3 (0.0-1.0) mg/dL AST 19 (5-31) U/L ALT 20 (0-31) U/L Alkaline Phosphatase 103 (39-117) U/L Total Protein 7.3 (6.5-8.0) g/dL Albumin 4.3 (3.5-5.0) g/dL Independent Interpretation I performed an independent interpretation of an: Plain X-Ray Interpretation: My interpretation is in agreement with the radiologist's impression of this imaging study. L EXAMINATION: XR CERVICAL SPINE CLINICAL INFORMATION: Midline neck pain. COMPARISON: Plain film dated November 02, 2020. CT scan of the cervical spine dated March 03, 2020. TECHNIQUE: 3 views of the cervical spine were obtained. FINDINGS: Mild disc degenerative change at C3-C4 and moderate disc degenerative change at C5-C7. Multilevel facet degenerative change. Approximately 2mm anterior subluxation of C4 on C5. The above findings do not appear significantly changed compared with November 02, 2020. Vertebral body heights appear maintained. No fracture identified. Prevertebral soft tissues appear unremarkable. XR/XR cervical spine 3V IMPRESSION: Degenerative changes. Electronically signed by: Jonathan Grayson MD 12/27/2023 02:16 PM EDT RP Dictated By: Jonathan Grayson Signed By: Electronically signed by Jonathan Grayson 12/27/23 1416 Radiology Impression Discussion of test interpretation with radiology: I have reviewed the radiologist's reading. Discharge Plan Discharge Clinical Impression: Cervical arthritis Patient Disposition: Home, Self-Care Instructions: Osteoarthritis (DC) Additional Instructions: Follow up with your primary care provider. Return to the emergency department immediately if your symptoms worsen or if you develop any dizziness, shortness of breath, difficulty breathing, chest pain, blurry vision, loss of vision, nausea, vomiting, abdominal pain, fever, chills, back pain, or any other complaints. Casey?seguimiento?con whitten m?dico de atenci?n primaria. Acuda inmediatamente al servicio de urgencias si mendez s?ntomas empeoran o si presenta falta de aliento, dificultad para respirar, dolor tor?cico, mareos, aturdimiento, dolor de espalda, dolor abdominal, fiebre, escalofr?os o cualquier otro s?ntoma. Prescriptions: No Action hydrocortisone [Proctosol HC] 2.5 % cream with perineal applicator 1 appl KY BID Qty: 30 6RF Rx Instructions: BE SURE TO INCLUDE RECTAL APPICATOR!! atorvastatin 40 mg tablet 40 mg PO QPM duloxetine 60 mg capsule,delayed release(DR/EC) 60 mg PO DAILY lisinopril 40 mg tablet 40 mg PO QAM metoprolol tartrate 50 mg tablet 50 mg PO BID metformin 500 mg tablet 500 mg PO BID gabapentin 600 mg tablet 600 mg PO TID calcium carbonate [Antacid Ext Str (calcium carb)] 300 mg (750 mg) tablet,chewable 1 tab PO BID (DME) FreeStyle Lite Strips Strip See Rx Instructions .ROUTE .MEDSUPPLY Qty: 10 Rx Instructions: As directed multivitamin Tablet 1 tab PO DAILY (DME) lancets [TRUEplus Lancets] 33 gauge misc See Rx Instructions .ROUTE .MEDSUPPLY Qty: 100 Rx Instructions: As directed albuterol sulfate [Ventolin HFA] 90 mcg/actuation HFA aerosol inhaler 1 inh inhalation QID PRN (Reason: shortness of breath or wheezing) Qty: 8.5 3RF nifedipine 30 mg tablet extended release 24hr 30 mg PO DAILY acetaminophen [Tylenol Extra Strength] 500 mg tablet 500 mg PO Q6H PRN calcium polycarbophil [Fiber-Lax] 625 mg tablet PO dicyclomine 20 mg tablet 40 mg PO QID Qty: 240 3RF Creon 3,000-9,500- 15,000 unit capsule,delayed release(DR/EC) 2 cap PO BID Qty: 120 6RF Citrucel 500 mg tablet 500 mg PO BID Qty: 60 6RF pantoprazole 20 mg tablet,delayed release (DR/EC) 20 mg PO QAM Qty: 90 3RF sucralfate [Carafate] 100 mg/mL suspension 30 ml PO QNOON Qty: 420 6RF clonazepam 1 mg tablet 1 mg PO BID PRN hydrocortisone acetate [Anusol-HC] 25 mg suppository 25 mg KY BID PRN (Reason: Hemorrhoid pain) Qty: 24 0RF Referrals: [facility] [Provider Group] (Call to establish and follow up with a soil fertility specialist for your neck arthritis and pain. Llame para establecer y realizar un seguimiento con un especialista en [place] vertebral para whitten artritis y dolor de dereje.) [facility] [Provider Group] (Call to establish and follow up with a soil fertility specialist for your neck arthritis and pain. Llame para establecer y realizar un seguimiento con un especialista en [place] vertebral para whitten artritis y dolor de dereje. ) [place],[facility] [Primary Care Provider] - Interventions: ED Discharge Assessment Last Done: 12/27/23 15:17 Discharge Date/Time: 12/27/23 15:24 Print Language: Moroccan
[2023-12-27 13:01] VITALS: BP 129/99; PULSE 70; RESP 18; TEMP 36; O2SAT 96; BMI 28.3
[2023-12-27 13:20] LABS: MANUAL DIFF FLAG NO
[2023-12-27 13:22] LABS: Basophils Percent Auto 0.4 % (0-2); Eosinophils Absolute Auto 0.1 X10*3/uL (0.0-0.4); Eosinophils Percent Auto 2.1 % (0-4); Hematocrit 35.6 % (37.0-47.0); Hemoglobin 12.2 g/dl (12.0-16.0); Imm Gran Abs Auto 0.02 X10*3/uL (0.00-0.03); Imm Gran Pct Auto 0.4 % (0.0-0.4); Lymphocytes Absolute Auto 1.6 X10*3/uL (1.2-4.9); Lymphocytes Percent Auto 27.5 % (20-40); Mean Corpuscular HGB Conc 34.3 g/dl (31.0-35.0); Mean Corpuscular Hemoglobin 31.5 pg (27.0-33.0); Mean Platelet Volume 10.5 fL (9.4-12.3); Monocytes Absolute Auto 0.4 X10*3/uL (0.1-1.2); Monocytes Percent Auto 6.7 % (2-11); Neutrophils Absolute Auto 3.6 x10*3/uL (2.0-8.3); Neutrophils Percent Auto 62.9 % (45-73); Platelet Count 183 X10*3/uL (160-400); Red Blood Count 3.87 X10*6/uL (4.20-5.50); Red Cell Distribution Width 12.4 % (11.0-16.0); White Blood Count 5.7 X10*3/uL (4.8-10.8)
[2023-12-27 13:40] LABS: Alanine Aminotransferase 20 U/L (0-31); Albumin Level 4.3 g/dL (3.5-5.0); Alkaline Phosphatase 103 U/L (39-117); Anion Gap 10 (12-20); Aspartate Amino Transferase 19 U/L (5-31); Bilirubin Total 0.3 mg/dL (0.0-1.0); Blood Urea Nitrogen 13 mg/dL (9-16); Calcium 9.6 mg/dL (8.4-10.2); Carbon Dioxide 26 mmol/L (22-29); Chloride 109 mmol/L (96-108); Estimated Glomerular Filt Rate > 60; Glucose Random 170 mg/dL (60-115); Potassium 4.1 mmol/L (3.3-5.1); Sodium 141 mmol/L (135-145); Total Protein 7.3 g/dL (6.5-8.0)
[2023-12-27 15:12] VITALS: BP 125/76; PULSE 69; RESP 16; TEMP 36.8; O2SAT 96
[2023-12-27 15:17] VITALS: BP 125/76; PULSE 69; RESP 16; TEMP 36.8; O2SAT 96
== END 2023-12-27 15:24 | disposition home or self-care (01) ==
PROVIDERS: Physician Assistant Medical; Emergency Provider Student in an Organized Health Care Education/Training Program
DX: M47.892 Other spondylosis, cervical region (principal); M54.2 Cervicalgia; E11.9 Type 2 diabetes mellitus without complications; I10 Essential (primary) hypertension; J45.909 Unspecified asthma, uncomplicated; F17.210 Nicotine dependence, cigarettes, uncomplicated; Z79.02 Long term (current) use of antithrombotics/antiplatelets; Z79.84 Long term (current) use of oral hypoglycemic drugs
CPT/HCPCS: 36415; 72040; 80053; 83735; 85025; 99282; 99283

== ENCOUNTER 2024-01-08 12:53 | Outpatient (AMB) | payer OTHER, SELFPAY ==
[2024-01-08 12:54] VITALS: BMI 28.3
--- NOTE | 2024-01-08 12:54 | MHC.OFFVIS ---
Vital Signs 01/08/24 12:54 Height 4 ft 9 in Weight 131 lb 0.014 oz BMI 28.3 Intake Visit Reasons: hemorrhoid procedure Intake Note: Office procedure: hemorrhoidal banding Bridge Leverman Required: Yes Bridge Leverman Language: Csr [employer] Services: Bridge Leverman Present Bridge Leverman Name: Tanner Information Interpreted: non-clinical & clinical Accompanied by: CHANGE MANAGEMENT CONSULTANT Allergies morphine [MORPHINE] Allergy (Intermediate, Verified 01/08/24 12:55) GI UPSET,TACHYCARDIA clams Adverse Reaction (Intermediate, Verified 01/08/24 12:55) GI UPSET rosiglitazone [From AVANDIA] Adverse Reaction (Unknown, Verified 01/08/24 12:55) PEDAL EDEMA clam Allergy (Unknown, Uncoded 01/08/24 12:55) unknown HPI HPI hemorrhoid procedure: Details: She is here for rubber band ligation of internal hemorrhoids [facility] Medical History Hemorrhoids that prolapse with straining, but retract spontaneously RUQ abdominal pain Asthma exacerbation Periumbilical abdominal pain Elevated lipase Urinary frequency Cellulitis Wound of left lower extremity Hemorrhoids, internal, with bleeding Lumbar radiculopathy IBS (irritable bowel syndrome) Wheezing Cough Pre-op examination Incisional hernia Sebaceous cyst of axilla HTN (hypertension) Diabetes Surgical History Status post right knee replacement History of back surgery Hx of cholecystectomy Hx of endoscopy History of colonoscopy Family History Father No problems noted. Mother No problems noted. Social History Alcohol intake: never Patient Tobacco Use Status: Current everyday Tobacco user Cigarettes Per Day: 5 Physical Exam Vital Signs: BMI result Body Mass Index 28.3 Office Procedures Hemorrhoid She was in meagan-knife position. The anoscope was gently inserted. I visualize 2 large hemorrhoidal columns, 1 on the left and 1 on the right. I proceeded to grasped the internal hemorrhoidal column on the left with the hemorrhoidal grasper. I used the rubber band applicator and applied this at the base of the internal hemorrhoidal column. I repeated the procedure on the 2nd hemorrhoidal column on the right side. Again this was grasped with a hemorrhoidal grasper and the rubber band was applied using the applicator at the base. She tolerated the procedure well. There were no immediate complications. Assessment & Plan Assessment & Plan (1) Hemorrhoids that prolapse with straining, but retract spontaneously: Code(s): K64.1 - Second degree hemorrhoids Category: Medical Plan: Rubber band ligation was done in the office for 2 columns of internal hemorrhoids. She tolerated procedure well. I will see her in the office in about 3 weeks. She understands that we may need to repeat the procedure other internal hemorrhoidal columns. Coding Level of Care Code Procedure Only Diagnoses Hemorrhoids that prolapse with straining, but retract spontaneously K64.1
== END 2024-01-08 13:17 | disposition home or self-care (01) ==
PROVIDERS: PCP General Practice; Visit Provider Surgery
DX: K64.1 Second degree hemorrhoids (principal)
CPT/HCPCS: 46221

== ENCOUNTER → 2024-01-08 12:53 | Outpatient (BNVA) | payer OTHER, SELFPAY | PROVIDERS: PCP General Practice; Visit Provider Surgery | DX: K64.1 Second degree hemorrhoids (principal) | CPT/HCPCS: 46221 ==

== ENCOUNTER 2024-01-14 12:49 | Outpatient (REF) | payer OTHER, SELFPAY ==
--- NOTE | ~2024-01-14 | US_ITS ---
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 To evaluate the superficial system, the examination was performed in the upright position. Color-flow Doppler ultrasound and compression ultrasound were utilized. In addition, maneuvers were utilized to demonstrate reflux. FINDINGS: 1. DEEP VENOUS ULTRASOUND OF THE RIGHT LOWER EXTREMITY: Common Femoral Vein: Compressible, normal respiratory variation and augmented flow. Femoral Vein: Compressible, normal color flow and augmentation. Popliteal Vein: Compressible, normal augmentation. Deep Reflux: There is no evidence of reflux in the deep system in either the common femoral vein, superficial femoral or the popliteal vein. There is no evidence of a Echevarria's cyst. 2. SUPERFICIAL ULTRASOUND WITH DOPPLER OF RIGHT LOWER EXTREMITY: GREAT SAPHENOUS VEIN: Saphenofemoral Junction: 0.6 cm; Reflux: 2272 ms Proximal Thigh: 0.5 cm; Reflux: 1376 ms Mid Thigh: 0.5 cm; Reflux: 1564 ms Above Knee: 0.5 cm; Reflux: 1688 ms At Knee: 0.5 cm; Reflux: 1264 ms Below Knee: 0.3 cm; Reflux: 0 ms Mid Calf: 0.3 cm; Reflux: 0 ms Ankle: 0.3 cm; Reflux: 0 ms DUPLICATED MEDIAL GREAT SAPHENOUS VEIN: Saphenofemoral Junction: 0.4 cm; Reflux: 0 ms Mid Thigh: 0.2 cm; Reflux: 0 ms SMALL SAPHENOUS VEIN: Saphenopopliteal Junction: 0.3 cm; Reflux: 0 ms Proximal: 0.3 cm; Reflux: 0 ms Distal: 0.3 cm; Reflux: 0 ms PERFORATORS: Location: SSV mid Size: 0.2; Reflux: 0 ms VARICOSITIES: Location: SSV mid Size: 0.3; Reflux: 0 ms Location: At knee Size: 0.4; Reflux: 2636 ms 3. DEEP VENOUS ULTRASOUND OF THE LEFT LOWER EXTREMITY: Common Femoral Vein: Compressible, normal respiratory variation and augmented flow. Femoral Vein: Compressible, normal color flow and augmentation. Popliteal Vein: Compressible, normal augmentation. Deep Reflux: There is no evidence of reflux in the deep system in either the common femoral vein, superficial femoral or the popliteal vein. There is no evidence of a Echevarria's cyst. 4. SUPERFICIAL ULTRASOUND WITH DOPPLER OF LEFT LOWER EXTREMITY: GREAT SAPHENOUS VEIN: Saphenofemoral Junction: 0.7 cm; Reflux: 0 ms Proximal Thigh: 0.3 cm; Reflux: 0 ms Mid Thigh: 0.4 cm; Reflux: 0 ms Above Knee: 0.4 cm; Reflux: 0 ms At Knee: 0.4 cm; Reflux: 0 ms Below Knee: 0.3 cm; Reflux: 0 ms Mid Calf: 0.3 cm; Reflux: 0 ms Ankle: 0.4 cm; Reflux: 0 ms DUPLICATED MEDIAL GREAT SAPHENOUS VEIN: Saphenofemoral Junction: 0.2 cm; Reflux: 0 ms Mid Thigh: Not visualized DUPLICATED LATERAL GREAT SAPHENOUS VEIN: Saphenofemoral Junction: 0.4 cm; Reflux: 0 ms Mid Thigh: 0.2 cm; Reflux: 0 ms SMALL SAPHENOUS VEIN: Saphenopopliteal Junction: 0.2 cm; Reflux: 0 ms Proximal: 0.2 cm; Reflux: 0 ms Distal: 0.2 cm; Reflux: 0 ms VEIN OF GIACOMINI: Size: NA; Reflux: 0 ms PERFORATORS: Location: Proximal thigh Size: 0.2; Reflux: 0 ms Location: Distal thigh Size: 0.2; Reflux: 0 ms Location: Mid calf Size: 0.2; Reflux: 0 ms VARICOSITIES: Location: None Imaged Size: NA; Reflux: 0 ms US/US venous duplex LE BI IMPRESSION: 1. No evidence of deep venous thrombosis or reflux. 2. Incompetent right great saphenous vein from the level of the saphenofemoral junction to the knee with reflux measuring up to 2272 ms. 3. 2. Varicosities visualized in the right lower extremity, one of which has significant reflux measuring 2636 ms at the level of the knee. 4. 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 5. No evidence of superficial venous insufficiency of the left lower extremity with competent left great saphenous vein, duplicated lateral great saphenous vein, duplicated medial great saphenous vein, and small saphenous vein. Electronically signed by: Jessica Parker MD 01/23/2024 09:11 AM EDT
== END 2024-01-14 12:50 | disposition home or self-care (01) ==
LOC: HO.US 12:49
PROVIDERS: PCP General Practice; Visit Provider Surgery Vascular Surgery
DX: I83.11 Varicose veins of right lower extremity with inflammation (principal)
CPT/HCPCS: 93970

== ENCOUNTER 2024-01-16 13:10 | Outpatient (AMB) | payer OTHER, SELFPAY ==
[2024-01-16 13:14] VITALS: BP 92/56; PULSE 63; BMI 28.2
--- NOTE | 2024-01-16 13:14 | MHC.OFFVIS ---
Vital Signs 01/16/24 13:14 Height 4 ft 9 in Weight 130 lb 8.218 oz BMI 28.2 BP 92/56 L Blood Pressure Location Lt brachial Position Sitting Pulse 63 Intake Visit Reasons: 8 weeks Intake Note: Cheryl presents to in office follow up of GERD. CC: Patient reports states that she is having na lot of rectal discharge with BMs. She states that she underwent hemorrhoid banding with Dr. Kuo. Slide Forming Machine Operator Required: Yes Accompanied by: MOBILE BATTERY TECHNICIAN Allergies morphine [MORPHINE] Allergy (Intermediate, Verified 01/16/24 13:32) GI UPSET,TACHYCARDIA clams Adverse Reaction (Intermediate, Verified 01/16/24 13:32) GI UPSET rosiglitazone [From AVANDIA] Adverse Reaction (Unknown, Verified 01/16/24 13:32) PEDAL EDEMA clam Allergy (Unknown, Uncoded 01/08/24 12:55) unknown HPI HPI 8 weeks: Details: Assessment & Plan (1) GERD (gastroesophageal reflux disease): Code(s): K21.9 - Gastro-esophageal reflux disease without esophagitis Category: Medical (2) Atrophic gastritis: Comment: EGD 2017 Code(s): K29.40 - Chronic atrophic gastritis without bleeding Category: Medical (3) Bile salt-induced diarrhea: Code(s): 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 She also has been using proctosol cream, but is quite concerned about her bleeding hemorrhoids. She is asking for referral to surgery to discuss if hemorrhoidectomy is possible for her. I will generate the referral. She says sometimes I bleed on the floor. She is also reporting mucus in her stooling, but she is only taking the sucralfate when I have diarrhea. 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 She has been having trouble with cramping in her legs, apparently r/t PAD. After discussion, it seems they were having trouble getting the sucralfate in bruna liquid form. There HAS been a shortage of this in this form, and I advise her as such but she says she has it in the house now. ROV 8 weeks. Orders: Referrals General Surgery Referral K64.9 - Unspecified hemorrhoids Medications: New wendvy-odoaqsjj-qmcfsum 3,000-9,500- 15,000 unit (Creon) 2 caps PO BID 120 caps 6RF hydrocortisone 2.5% (Proctosol HC) BE SURE TO INCLUDE RECTAL APPICATOR!! 1 appl AL BID 30 grams 6RF hemorrhoids K64.9 - Unspecified hemorrhoids Refilled dicyclomine 40 mg (2 x 20 mg) PO QID 240 tabs 3RF K58.9 - Irritable bowel syndrome without diarrhea methylcellulose (laxative) (Citrucel) 500 mg PO BID 60 tabs 6RF pantoprazole 20 mg PO QAM 90 tabs 3RF K21.9 - Gastro-esophageal reflux disease without esophagitis sucralfate (Carafate) 30 mL PO QNOON 420 mL 6RF Discontinued hydrocortisone 2.5% Discontinued Reason: Duplicate 1 appl AL Q12H 2 weeks 30 grams 2RF K64.8 - Other hemorrhoids TODAY'S VISIT THAI #Rosemarie Live ALWAYS CALL HER MOBILE BATTERY TECHNICIAN TO SCHEDULE APPTS; call ALLISON Annelise, She is having a great deal of pain in her neck that radiates to her ear, jaw and neck. She has been evaluated in the ER and by her PCP and it is not an ear infection, but OA. They were not presented options such as botox injections vs saline injects etc or even NSAID. I will try to send Celebrex. She continues on her sucralfate as needed, dicyclomine, creon and pantoprazole with sufficient control of her GI conditions. She had a banding procedure for her hemorrhoids with Dr. Kuo. She has been having some brown mucus discharge since this, and I suggest that she take some of her prn sucralfate daily for a while to address this. She dose not like the taste but she will try it. Her MOBILE BATTERY TECHNICIAN says I see her dtr and she loves you! Return office visit in 6 weeks to evaluate her response to Celebrex [facility] Medical History (Updated 01/16/24 @ 14:09 by PRADEEP Romero) Hemorrhoids that prolapse with straining, but retract spontaneously Atrophic gastritis RUQ abdominal pain Asthma exacerbation Periumbilical abdominal pain Elevated lipase Urinary frequency Cellulitis Wound of left lower extremity Hemorrhoids, internal, with bleeding Lumbar radiculopathy IBS (irritable bowel syndrome) Wheezing Cough Pre-op examination Incisional hernia Sebaceous cyst of axilla HTN (hypertension) Diabetes Surgical History Status post right knee replacement History of back surgery Hx of cholecystectomy Hx of endoscopy History of colonoscopy Family History Father No problems noted. Mother No problems noted. Social History Alcohol intake: never Patient Tobacco Use Status: Current everyday Tobacco user Cigarettes Per Day: 5 Review of Systems Const Denies fatigue, Denies fever(s), Denies night sweats, Denies poor appetite and Denies weight loss ENT Reports Normal hearing present, Denies dental pain, Denies dysphagia, Denies hearing loss, Denies mouth pain, Reports neck pain, Denies odynophagia, Denies throat swelling, Denies tongue swelling and Reports other (Dentition adequate) Card Reports no additional complaints Resp Reports no additional complaints GI Details: Denies abdominal pain, Denies melena, Reports bloating, Denies hematochezia, Denies constipation, Denies GI cramping, Denies dysphagia, Denies excessive flatus, Denies early satiety, Reports heartburn, Denies diarrhea, Reports loose stools, Denies nausea, Denies odynophagia, Denies vomiting and Denies hematemesis Musc Reports abnormal gait, Reports back pain, Reports neck pain and Reports stiffness Skin/Breast Denies pruritus, Denies lesions, Denies rash and Denies jaundice Neuro Reports Normal hearing present, Denies Abnormal speech present and Reports abnormal gait Endo Denies fatigue Aller/Immun Denies throat swelling and Denies tongue swelling Physical Exam Const General: cooperative, no acute distress, well developed and well groomed Nutritional Appearance: average body habitus and well nourished Orientation/consciousness: oriented to person, oriented to place and oriented to time Limitations: language barrier and ambulation with walker HEENT Head: Yes normocephalic and Yes atraumatic Eyes General: appearance normal, both eyes and all related structures Pupils: Equal, round and reactive pupils present Neck Neck: Yes no lymphadenopathy Thyroid: Thyroid normal Resp Effort & Inspection: normal respiratory effort and able to speak in complete sentences Auscultation: clear to auscultation bilaterally Cardio Rate: regular rate Rhythm: regular rhythm Heart sounds: Normal, physiologic split S2 sound present Peripheral pulses: radial pulses present and posterior tibial pulses present GI Inspection: No distended and No Abdominal panniculus present Palpation (GI): Soft to palpation, nontender, no guarding, not rigid and No hepatosplenomegaly present Percussion: Yes normal to percussion Auscultation: normal bowel sounds Rectal Exam - Female: deferred Back/Spine/Pelvis Cervical Spine: loss of normal cervical lordosis, cervical muscular tenderness, pain with cervical ROM, Cervical spine tenderness, step off deformity and cervical ROM abnormal Thoracic/Lumbar Spine: kyphosis, No paraspinal muscle tenderness and No thoracic spinal tenderness Skin General skin exam: no rashes or lesions noted, turgor normal, skin not dry, no jaundice, No spider nevi and no striae Rashes: no rashes Nails: normal Neuro General: oriented to person, oriented to place and oriented to time Cranial nerves: Yes Equal, round and reactive pupils present and Yes Normal hearing present Speech: No Abnormal speech present Motor exam (neuro): 5/5 motor strength present throughout Deep tendon reflexes (DTR's): Right triceps reflex intensity grade: 2+, Left triceps reflex intensity grade: 2+, Rt Biceps (C5, C6): 2+, Left biceps reflex intensity grade: 2+, Right brachioradialis reflex intensity grade: 2+ and Left brachioradialis reflex intensity grade: 2+ Extrem General: Yes normal to inspection, No clubbing, No cyanosis and No edema Psych Appearance: grossly normal and well kempt Mental Status: mental status grossly normal Speech and movement: Normal speech and movement present Affect: normal affect Attitude: cooperative Thought process: Normal thought process present and not confabulating Thought content: Normal thought content present Insight: Limited insight present (Psych) Judgement: Limited judgement present (Psych) Results Reviewed Results Reviewed: XR CERVICAL SPINE 12/27/23 FINDINGS: Mild disc degenerative change at C3-C4 and moderate disc degenerative change at C5-C7. Multilevel facet degenerative change. Approximately 2 mm anterior subluxation of C4 on C5. The above findings do not appear significantly changed compared with November 02, 2020. Vertebral body heights appear maintained. No fracture identified. Prevertebral soft tissues appear unremarkable. XR/XR cervical spine 3V IMPRESSION: Degenerative changes. Assessment & Plan Assessment & Plan (1) Bile salt-induced diarrhea: Code(s): K90.89 - Other intestinal malabsorption Category: Medical (2) GERD (gastroesophageal reflux disease): Code(s): K21.9 - Gastro-esophageal reflux disease without esophagitis Category: Medical (3) Bleeding hemorrhoids: Code(s): K64.9 - Unspecified hemorrhoids Category: Medical (4) Spinal stenosis: Code(s): M48.00 - Spinal stenosis, site unspecified Category: Medical (5) Cervical radiculopathy: Code(s): M54.12 - Radiculopathy, cervical region Category: Medical Plan THAI #Rosemarie Live ALWAYS CALL HER MOBILE BATTERY TECHNICIAN TO SCHEDULE APPTS; call MOBILE BATTERY TECHNICIAN Annelise, She is having a great deal of pain in her neck that radiates to her ear, jaw and neck. She has been evaluated in the ER and by her PCP and it is not an ear infection, but OA. They were not presented options such as botox injections vs saline injects etc or even NSAID. I will try to send Celebrex. She continues on her sucralfate as needed, dicyclomine, creon and pantoprazole with sufficient control of her GI conditions. She had a banding procedure for her hemorrhoids with Dr. Kuo. She has been having some brown mucus discharge since this, and I suggest that she take some of her prn sucralfate daily for a while to address this. She dose not like the taste but she will try it. Her MOBILE BATTERY TECHNICIAN says I see her dtr and she loves you! Return office visit in 6 weeks to evaluate her response to Celebrex Orders: Referrals Pain Management Referral M54.12 - Radiculopathy, cervical region Medications: New celecoxib (Celebrex) 100 mg PO BID 60 caps 3RF M48.00 - Spinal stenosis, site unspecified Refilled pantoprazole 20 mg PO QAM 90 tabs 3RF K21.9 - Gastro-esophageal reflux disease without esophagitis dicyclomine 40 mg (2 x 20 mg) PO QID 240 tabs 3RF K58.9 - Irritable bowel syndrome, unspecified methylcellulose (laxative) (Citrucel) 500 mg PO BID 60 tabs 6RF sucralfate (Carafate) 30 mL PO QNOON 420 mL 6RF Coding Level of Care Code Est Pt Level 3 (39197) Complex EM visit Add On G2211 Diagnoses Bile salt-induced diarrhea K90.89 GERD (gastroesophageal reflux disease) K21.9 Bleeding hemorrhoids K64.9 Spinal stenosis M48.00 Cervical radiculopathy M54.12
== END 2024-01-16 14:52 | disposition home or self-care (01) ==
PROVIDERS: PCP General Practice; Visit Provider Nurse Practitioner
DX: K90.89 Other intestinal malabsorption (principal); K21.9 Gastro-esophageal reflux disease without esophagitis; K64.9 Unspecified hemorrhoids; M48.00 Spinal stenosis, site unspecified; M54.12 Radiculopathy, cervical region
CPT/HCPCS: 99213; G2211

== ENCOUNTER → 2024-01-16 13:10 | Outpatient (BNVA) | payer OTHER, SELFPAY | PROVIDERS: PCP General Practice; Visit Provider Nurse Practitioner | DX: K21.9 Gastro-esophageal reflux disease without esophagitis (principal); K58.9 Irritable bowel syndrome, unspecified; K90.89 Other intestinal malabsorption; K64.9 Unspecified hemorrhoids; M48.00 Spinal stenosis, site unspecified; M54.12 Radiculopathy, cervical region | CPT/HCPCS: 99212 ==

== ENCOUNTER 2024-01-23 11:14 | Outpatient (REF) | payer OTHER, SELFPAY ==
[2024-01-23 13:18] LABS: Appearance Urine Clear; Color Urine Yellow; Glucose Urine UA Negative (Negative); Leukocyte Esterase Urine Negative (Negative); Nitrite Urine Negative (Negative); PH 5.5 (5.0-9.0); Urine Blood Negative (Negative); Urine Ketones Negative (Negative); Urine Protein Negative (Neg-Trace)
[2024-01-23 13:29] LABS: Bacteria Urine None Seen (None Seen); Hyaline Casts Urine 0-2 /LPF (0-2); WBC Urine 0-5 /HPF (0-5)
[2024-01-23 14:04] LABS: Alanine Aminotransferase 20 U/L (0-31); Albumin Level 4.2 g/dL (3.5-5.0); Alkaline Phosphatase 85 U/L (39-117); Anion Gap 14 (12-20); Aspartate Amino Transferase 22 U/L (5-31); Bilirubin Total 0.3 mg/dL (0.0-1.0); Blood Urea Nitrogen 17 mg/dL (9-16); Calcium 10.1 mg/dL (8.4-10.2); Carbon Dioxide 21 mmol/L (22-29); Chloride 109 mmol/L (96-108); Cholesterol 124 mg/dL (<200); Estimated Glomerular Filt Rate > 60; Glucose Random 157 mg/dL (60-115); HDL Cholesterol 40 mg/dL (>40); LDL Cholesterol Calculated 66 mg/dL (<100); Potassium 3.9 mmol/L (3.3-5.1); Sodium 140 mmol/L (135-145); Total Protein 7.4 g/dL (6.5-8.0); Triglycerides 93 mg/dL (<150)
[2024-01-23 14:31] LABS: Microalbum/Creatinine Ratio Ur 13.8 ug/mg cr (<30)
== END 2024-01-23 11:15 | disposition home or self-care (01) ==
LOC: HO.HHCL 11:14
PROVIDERS: Visit Provider General Practice
DX: E11.69 Type 2 diabetes mellitus with other specified complication (principal); R30.0 Dysuria
CPT/HCPCS: 36415; 80053; 80061; 81001; 82043; 82570

== ENCOUNTER 2024-01-24 10:26 | Outpatient (AMB) | payer OTHER, SELFPAY ==
--- NOTE | 2024-01-24 10:32 | MHC.OFFVIS ---
Vital Signs 01/24/24 10:33 Height 4 ft 9 in Weight 131 lb BMI 28.3 BP 177/67 H Blood Pressure Location Lt brachial Position Sitting Respiration 16 Pulse 58 Pulse Source Pulse Oximeter Pulse Oximetry (%) 99 Oxygen Delivery Method Room Air Intake Visit Reasons: Back painFU per ED suggest Senior Qualitative Researcher Required: Yes Senior Qualitative Researcher Name: Jabier # [id number] Allergies morphine [MORPHINE] Allergy (Intermediate, Verified 01/29/24 13:10) GI UPSET,TACHYCARDIA clams Adverse Reaction (Intermediate, Verified 01/29/24 13:10) GI UPSET rosiglitazone [From AVANDIA] Adverse Reaction (Unknown, Verified 01/29/24 13:10) PEDAL EDEMA clam Allergy (Unknown, Uncoded 01/29/24 13:10) unknown Medication List - Last Reconciled 01/24/24 by Kena Espitia LPN acetaminophen (Tylenol Extra Strength) 500 mg PO Q6H PRN albuterol sulfate 90 mcg/actuation (Ventolin HFA) 1 inh inhalation QID PRN atorvastatin 40 mg PO QPM blood sugar diagnostic (FreeStyle Lite Strips) As directed calcium carbonate (Antacid Ext Str (calcium carb)) 1 tab PO BID calcium polycarbophil (Fiber-Lax) mg PO celecoxib (Celebrex) 100 mg PO BID clonazepam 1 mg PO BID PRN dicyclomine 40 mg (2 x 20 mg) PO QID duloxetine 60 mg PO DAILY gabapentin 600 mg PO TID hydrocortisone 2.5% (Proctosol HC) 1 appl AL BID hydrocortisone acetate (Anusol-HC) 25 mg AL BID PRN lancets (TRUEplus Lancets) As directed xywpiq-kohhxnsy-btfamlw 3,000-9,500- 15,000 unit (Creon) 2 caps PO BID lisinopril 40 mg PO QAM metformin 500 mg PO BID methylcellulose (laxative) (Citrucel) 500 mg PO BID metoprolol tartrate 50 mg PO BID multivitamin 1 tab PO DAILY nifedipine ER 30 mg PO DAILY pantoprazole 20 mg PO QAM sucralfate (Carafate) 30 mL PO QNOON HPI HPI Back painFU per ED suggest: Details: 78-year-old female who presents today to the office for back pain. A certified psychology associate was present during the visit. She reports neck pain that radiates upward to her ears and head. She states that over the last 2 months she has had neck pain that hurts worse with movement and radiates up the back of her head and into both of her ears. She deferred injections today. She is amenable to proceed with physical therapy.? [facility] Medical History Hemorrhoids that prolapse with straining, but retract spontaneously Atrophic gastritis RUQ abdominal pain Asthma exacerbation Periumbilical abdominal pain Elevated lipase Urinary frequency Cellulitis Wound of left lower extremity Hemorrhoids, internal, with bleeding Lumbar radiculopathy IBS (irritable bowel syndrome) Wheezing Cough Pre-op examination Incisional hernia Sebaceous cyst of axilla HTN (hypertension) Diabetes Surgical History Status post right knee replacement History of back surgery Hx of cholecystectomy Hx of endoscopy History of colonoscopy Family History Father No problems noted. Mother No problems noted. Social History Alcohol intake: never Patient Tobacco Use Status: Current everyday Tobacco user Cigarettes Per Day: 5 Review of Systems Const All systems reviewed & are unremarkable except as noted in HPI and below Physical Exam Vital Signs: Last Vital Signs Pulse 58 01/24/24 10:33 Resp 16 01/24/24 10:33 BP 177/67 H 01/24/24 10:33 Pulse Ox 99 01/24/24 10:33 Oxygen Delivery Method Room Air 01/24/24 10:33 BMI result Body Mass Index 28.3 General: Appears afebrile. Alert and oriented. Mood and affect appropriate. Follows and participates in conversation appropriately. Respiratory effort is unlabored. Able to transition from sit to stand unassisted. Ambulates with bilaterally normal heel strike and toe off. Results Reviewed Results Reviewed: No imaging is available for review. Assessment & Plan Assessment & Plan (1) Cervical radiculopathy: Code(s): M54.12 - Radiculopathy, cervical region Category: Medical Plan A referral was provided to physical therapy for 2-3 months. The patient will receive a call to schedule an appointment. She will follow up after 3 months for reassess the response. Scribed for Dr. Mercer by Jet Ferro, medical records specialist, on 01/24/2024. I, Dr. Mercer, have personally reviewed and agree with the information entered by the scribe. Orders: Orders PT Evaluation and Treatment 01/24/24 M54.12 - Radiculopathy, cervical region Coding Level of Care Code Est Pt Level 3 (10192) Diagnoses Cervical radiculopathy M54.12
[2024-01-24 10:33] VITALS: BP 177/67; PULSE 58; RESP 16; O2SAT 99; BMI 28.3
== END 2024-01-24 10:54 | disposition home or self-care (01) ==
LOC: HO.PMC 10:27
PROVIDERS: Visit Provider Internal Medicine
DX: M54.12 Radiculopathy, cervical region (principal)
CPT/HCPCS: 99213

== ENCOUNTER → 2024-01-24 10:26 | Outpatient (BNVA) | payer OTHER, SELFPAY | PROVIDERS: Visit Provider Internal Medicine | DX: M54.12 Radiculopathy, cervical region (principal); M54.9 Dorsalgia, unspecified | CPT/HCPCS: 99212 ==

== ENCOUNTER 2024-01-29 12:50 | Outpatient (AMB) | payer OTHER, SELFPAY ==
--- NOTE | 2024-01-29 12:56 | MHC.OFFVIS ---
Vital Signs 01/29/24 13:03 Height 4 ft 9 in Weight 134 lb BMI 29.0 Intake Visit Reasons: 3 week hemorrhoidal banding follow-up Intake Note: This patient presents for three week follow-up status post hemorrhoidal banding. Pt c/o; reports no complaints. Tanning Solution Maker Required: Yes Tanning Solution Maker Language: Lowerator Operator Services: Tanning Solution Maker Present (Tanner) Tanning Solution Maker Name: Tanner Information Interpreted: non-clinical & clinical Accompanied by: MANAGER EMPLOYMENT Allergies morphine [MORPHINE] Allergy (Intermediate, Verified 01/29/24 13:10) GI UPSET,TACHYCARDIA clams Adverse Reaction (Intermediate, Verified 01/29/24 13:10) GI UPSET rosiglitazone [From AVANDIA] Adverse Reaction (Unknown, Verified 01/29/24 13:10) PEDAL EDEMA clam Allergy (Unknown, Uncoded 01/29/24 13:10) unknown HPI HPI 3 week hemorrhoidal banding follow-up: Details: She had undergone hemorrhoidal banding last January 07 in the office for internal hemorrhoids. She tolerated the procedure well. She says that the hemorrhoid banding has helped a lot and she feels much better. He denies any problems. She denied any pain or bleeding. [facility] Medical History Hemorrhoids that prolapse with straining, but retract spontaneously Atrophic gastritis RUQ abdominal pain Asthma exacerbation Periumbilical abdominal pain Elevated lipase Urinary frequency Cellulitis Wound of left lower extremity Hemorrhoids, internal, with bleeding Lumbar radiculopathy IBS (irritable bowel syndrome) Wheezing Cough Pre-op examination Incisional hernia Sebaceous cyst of axilla HTN (hypertension) Diabetes Surgical History Status post right knee replacement History of back surgery Hx of cholecystectomy Hx of endoscopy History of colonoscopy Family History Father No problems noted. Mother No problems noted. Social History Alcohol intake: never Patient Tobacco Use Status: Current everyday Tobacco user Cigarettes Per Day: 5 Review of Systems Const Denies chills and Denies fever(s) Card Denies chest pain GI Denies abdominal pain Physical Exam Const General: comfortable and no acute distress Resp Effort & Inspection: normal respiratory effort GI Palpation (GI): Soft to palpation Assessment & Plan Assessment & Plan (1) Bleeding hemorrhoids: Code(s): K64.9 - Unspecified hemorrhoids Category: Medical Plan: Status post rubber banding of internal hemorrhoids. She is doing very well after rubber banding. She says her symptoms have resolved. She feels well, denies any pain and significant bleeding. I told her to come back to the office down the line if she has recurrent symptoms and we can proceed with additional rubber banding. Coding Level of Care Code Est Pt Level 1 (17180) Diagnoses Bleeding hemorrhoids K64.9
[2024-01-29 13:03] VITALS: BMI 29.0
== END 2024-01-29 13:14 | disposition home or self-care (01) ==
LOC: HO.HGS 12:51
PROVIDERS: PCP General Practice; Visit Provider Surgery
DX: K64.9 Unspecified hemorrhoids (principal)

== ENCOUNTER → 2024-01-29 12:50 | Outpatient (BNVA) | payer OTHER, SELFPAY | PROVIDERS: PCP General Practice; Visit Provider Surgery | DX: K64.8 Other hemorrhoids (principal); Z98.890 Other specified postprocedural states | CPT/HCPCS: 99211 ==

== ENCOUNTER 2024-02-11 14:13 | Outpatient (AMB) | payer OTHER, SELFPAY ==
--- NOTE | 2024-02-11 14:14 | A.OFFVIS_ITS ---
Intake Visit Reasons: follow up s/p US 01/14/24 Intake Note: Patient presents for US follow up. Currently experiencing bilateral leg pain. Accompanied by: Family/Other Allergies morphine [MORPHINE] Allergy (Intermediate, Verified 02/11/24 14:18) GI UPSET,TACHYCARDIA clams Adverse Reaction (Intermediate, Verified 02/11/24 14:18) GI UPSET rosiglitazone [From AVANDIA] Adverse Reaction (Unknown, Verified 02/11/24 14:18) PEDAL EDEMA clam Allergy (Unknown, Uncoded 01/29/24 13:10) unknown HPI HPI follow up s/p US 01/14/24: Details: Very pleasant 78-year-old female presents for follow-up regarding venous insufficiency. She continues to have some swelling and discomfort right lower extremity more so than left. She now presents for follow-up with venous insufficiency testing. Of note she has used compression with minimal relief. [facility] Medical History Hemorrhoids that prolapse with straining, but retract spontaneously Atrophic gastritis RUQ abdominal pain Asthma exacerbation Periumbilical abdominal pain Elevated lipase Urinary frequency Cellulitis Wound of left lower extremity Hemorrhoids, internal, with bleeding Lumbar radiculopathy IBS (irritable bowel syndrome) Wheezing Cough Pre-op examination Incisional hernia Sebaceous cyst of axilla HTN (hypertension) Diabetes Surgical History Status post right knee replacement History of back surgery Hx of cholecystectomy Hx of endoscopy History of colonoscopy Family History Father No problems noted. Mother No problems noted. Social History Alcohol intake: never Patient Tobacco Use Status: Current everyday Tobacco user Cigarettes Per Day: 5 Review of Systems Const All systems reviewed & are unremarkable except as noted in HPI and below Reports no additional complaints ENT Reports Normal hearing present Card Denies chest pain, Denies chest pain at rest, Denies chest pain with activity and Denies pedal edema Resp Denies cough GI Denies abdominal pain Musc Details: pain over varicosities, aching of lower extremities, swelling, cramping, heaviness and tiredness, itching Denies abnormal gait, Denies muscle cramps and Denies radiating pain into limb Skin/Breast Denies skin ulcer and Denies wounds Neuro Reports Normal hearing present and Denies abnormal gait Psych Reports no additional complaints Physical Exam Const General: cooperative, healthy appearing and comfortable Orientation/consciousness: oriented to person, oriented to place and oriented to time HEENT Head: Yes normal to inspection Neck Neck: Yes normal visual inspection Carotids: no bruits Chest Chest palpation & inspection: normal inspection of the chest Resp Effort & Inspection: normal respiratory effort and able to speak in complete sentences Auscultation: clear to auscultation bilaterally, no crackles, no rales, no rhonchi and no wheezes Cardio Rate: regular rate Rhythm: regular rhythm Heart sounds: S1 normal heart sound present and S2 normal heart sound present Bruits: no carotid bruits Peripheral pulses: Peripheral pulses 2+ throughout GI Inspection: Yes normal to inspection Skin Other: +2 edema, CEAP Classification C4 - skin color changes Ep - Etiology Primary As - superficial veins P - reflux General skin exam: dry skin Wounds: no wounds Hair: normal Neuro General: oriented to person, oriented to place and oriented to time Cranial nerves: Yes CN's II-XII intact bilaterally and Yes Normal hearing present Cognition (Neuro): normal cognition Motor exam (neuro): 5/5 motor strength present throughout Extrem Other: venous exam: No significant superficial varicosities or spider telangiectasias, minimal edema General: No clubbing, No cyanosis and No edema Right lower extremity: full ROM, normal capillary refill and edema Left lower extremity: full ROM, normal capillary refill and edema Psych Appearance: grossly normal Mental Status: mental status grossly normal Speech and movement: Normal speech and movement present Results Reviewed Results Reviewed: Brief summary of venous insufficiency testing is as follows: right great saphenous vein: Positive right small saphenous vein: negative right accessory vein: none present left great saphenous vein: negative left small saphenous vein: negative left accessory vein: none present Please note there is no evidence of any venous aneurysms or significant tortuosity Assessment & Plan Assessment & Plan (1) Varicose veins of right lower extremity with inflammation: Code(s): I83.11 - Varicose veins of right lower extremity with inflammation Category: Medical Plan: This patient has varicose veins with inflammation. They continue to be a source of discomfort for the patient. The patient has tried conservative treatment with compression, leg elevation and exercise program for over 3 months time. They have been compliant with all treatment. This has provided minimal relief for the patient. I do not anticipate this course of treatment will alter the underlying etiology. The patient has been scheduled for lower extremity venous treatment inclusive of --- right great saphenous vein Cyanoacralate ablation. Risks, benefits, and complications of this procedure has been discussed in detail with the patient including but not limited to bleeding, infection, and the development of a DVT. The patient has demonstrated a clear understanding and has consented. We will schedule the patient as soon as possible. Thank you for allowing us to participate in this patient's care. If there are any questions or concerns please do not hesitate to contact us. Coding Level of Care Code Est Pt Level 4 (41469) Diagnoses Varicose veins of right lower extremity with inflammation I83.11
== END 2024-02-11 14:35 | disposition home or self-care (01) ==
PROVIDERS: PCP General Practice; Visit Provider Surgery Vascular Surgery
DX: I83.11 Varicose veins of right lower extremity with inflammation (principal)
CPT/HCPCS: 99214

== ENCOUNTER → 2024-02-11 14:13 | Outpatient (BNVA) | payer OTHER, SELFPAY | PROVIDERS: PCP General Practice; Visit Provider Surgery Vascular Surgery | DX: I83.11 Varicose veins of right lower extremity with inflammation (principal) | CPT/HCPCS: 99212 ==

== ENCOUNTER 2024-03-05 14:40 | Outpatient (AMB) | payer OTHER, SELFPAY ==
--- NOTE | 2024-03-05 14:57 | MHC.OFFVIS ---
Vital Signs 03/05/24 14:58 Height 4 ft 9 in Weight 133 lb BMI 28.8 BP 133/71 Blood Pressure Location Lt brachial Position Sitting Intake Visit Reasons: 6 wks f/u OA c spine, GERD, IBS Intake Note: Cheryl presents to in office follow up of GERD. CC: Patient reports doing well from GI standpoint. Dam Operator Required: Yes Accompanied by: REHABILITATION CONSULTANT Allergies morphine [MORPHINE] Allergy (Intermediate, Verified 03/05/24 15:13) GI UPSET,TACHYCARDIA clams Adverse Reaction (Intermediate, Verified 03/05/24 15:13) GI UPSET rosiglitazone [From AVANDIA] Adverse Reaction (Unknown, Verified 03/05/24 15:13) PEDAL EDEMA clam Allergy (Unknown, Uncoded 01/29/24 13:10) unknown HPI HPI 6 wks f/u OA c spine, GERD, IBS: Details: Assessment & Plan (1) Bile salt-induced diarrhea: Code(s): K90.89 - Other intestinal malabsorption Category: Medical (2) GERD (gastroesophageal reflux disease): Code(s): K21.9 - Gastro-esophageal reflux disease without esophagitis Category: Medical (3) Bleeding hemorrhoids: Code(s): K64.9 - Unspecified hemorrhoids Category: Medical (4) Spinal stenosis: Code(s): M48.00 - Spinal stenosis, site unspecified Category: Medical (5) Cervical radiculopathy: Code(s): M54.12 - Radiculopathy, cervical region Category: Medical Plan FAROESE #Rosemarie Live ALWAYS CALL HER REHABILITATION CONSULTANT TO SCHEDULE APPTS; call REHABILITATION CONSULTANT Annelise, She is having a great deal of pain in her neck that radiates to her ear, jaw and neck. She has been evaluated in the ER and by her PCP and it is not an ear infection, but OA. They were not presented options such as botox injections vs saline injects etc or even NSAID. I will try to send Celebrex. She continues on her sucralfate as needed, dicyclomine, creon and pantoprazole with sufficient control of her GI conditions. She had a banding procedure for her hemorrhoids with Dr. Kuo. She has been having some brown mucus discharge since this, and I suggest that she take some of her prn sucralfate daily for a while to address this. She dose not like the taste but she will try it. Her REHABILITATION CONSULTANT says I see her dtr and she loves you! Return office visit in 6 weeks to evaluate her response to Celebrex Orders: Referrals Pain Management Referral M54.12 - Radiculopathy, cervical region Medications: New celecoxib (Celebrex) 100 mg PO BID 60 caps 3RF M48.00 - Spinal stenosis, site unspecified Refilled pantoprazole 20 mg PO QAM 90 tabs 3RF K21.9 - Gastro-esophageal reflux disease without esophagitis dicyclomine 40 mg (2 x 20 mg) PO QID 240 tabs 3RF K58.9 - Irritable bowel syndrome, unspecified methylcellulose (laxative) (Citrucel) 500 mg PO BID 60 tabs 6RF sucralfate (Carafate) 30 mL PO QNOON 420 mL 6RF TODAYS VISIT Irish #Germán canas She is here today with her REHABILITATION CONSULTANT who is supportive. She continues on her pantoprazole, bentyl, Citrucel, carafate and creon. She does not feel that the Celebrex was helpful for her GU's that are likely cervical in nature. She has not yet been contacted by Pain Mgmt. I give them the phone # to contact them. She was seen at [facility] walk in and they gave her some patches that are more helpful but have not completely resolved the problem. She is taking more of the carafate and is doing much better! Her roid banding procedure also went well and this problem is resolved. ROV 6 mos. [facility], [facility] Medical History Hemorrhoids that prolapse with straining, but retract spontaneously Atrophic gastritis RUQ abdominal pain Asthma exacerbation Periumbilical abdominal pain Elevated lipase Urinary frequency Cellulitis Wound of left lower extremity Hemorrhoids, internal, with bleeding Lumbar radiculopathy IBS (irritable bowel syndrome) Wheezing Cough Pre-op examination Incisional hernia Sebaceous cyst of axilla HTN (hypertension) Diabetes Surgical History Status post right knee replacement History of back surgery Hx of cholecystectomy Hx of endoscopy History of colonoscopy Family History Father No problems noted. Mother No problems noted. Social History Alcohol intake: never Patient Tobacco Use Status: Current everyday Tobacco user Cigarettes Per Day: 5 Review of Systems Const Denies fatigue, Denies fever(s), Denies night sweats, Denies poor appetite and Denies weight loss Eyes Details: glasses Reports requires corrective lenses ENT Reports Normal hearing present, Denies dental pain, Denies dysphagia, Denies hearing loss, Denies mouth pain, Denies odynophagia, Denies throat swelling, Denies tongue swelling and Reports other (Dentition adequate) GI Details: Denies abdominal pain, Denies melena, Denies bloating, Denies hematochezia, Denies constipation, Denies GI cramping, Denies dysphagia, Denies excessive flatus, Denies early satiety, Denies heartburn, Denies diarrhea, Denies nausea, Denies odynophagia, Denies vomiting and Denies hematemesis Skin/Breast Denies pruritus, Denies lesions, Denies rash and Denies jaundice Neuro Reports Normal hearing present and Denies Abnormal speech present Endo Denies fatigue Aller/Immun Denies throat swelling and Denies tongue swelling Physical Exam Vital Signs: Last Vital Signs BP 133/71 03/05/24 14:58 BMI result Body Mass Index 28.8 Const General: cooperative, no acute distress, well developed and well groomed Nutritional Appearance: well nourished and overweight Orientation/consciousness: oriented to person, oriented to place and oriented to time Limitations: language barrier and ambulation with walker HEENT Head: Yes normocephalic and Yes atraumatic Eyes General: appearance normal, both eyes and all related structures Pupils: Equal, round and reactive pupils present Neck Neck: Yes normal visual inspection and Yes no lymphadenopathy Thyroid: Thyroid normal Resp Effort & Inspection: normal respiratory effort and able to speak in complete sentences Auscultation: clear to auscultation bilaterally Cardio Rate: regular rate Rhythm: regular rhythm Heart sounds: Normal, physiologic split S2 sound present Peripheral pulses: radial pulses present and posterior tibial pulses present GI Inspection: No distended, No Abdominal panniculus present and Yes obesity Palpation (GI): Soft to palpation, nontender, no guarding, not rigid and No hepatosplenomegaly present Percussion: Yes normal to percussion Auscultation: normal bowel sounds Rectal Exam - Female: deferred Skin General skin exam: no rashes or lesions noted, turgor normal, skin not dry, no jaundice, No spider nevi and no striae Rashes: no rashes Nails: normal Neuro General: oriented to person, oriented to place and oriented to time Cranial nerves: Yes Equal, round and reactive pupils present and Yes Normal hearing present Speech: No Abnormal speech present Extrem General: Yes normal to inspection, No clubbing, No cyanosis and No edema Psych Appearance: grossly normal and well kempt Mental Status: mental status grossly normal Speech and movement: Normal speech and movement present Affect: normal affect Attitude: cooperative Thought process: Normal thought process present and not confabulating Thought content: Normal thought content present Insight: Limited insight present (Psych) Judgement: Limited judgement present (Psych) Assessment & Plan Assessment & Plan (1) Bile salt-induced diarrhea: Code(s): K90.89 - Other intestinal malabsorption Category: Medical (2) GERD (gastroesophageal reflux disease): Code(s): K21.9 - Gastro-esophageal reflux disease without esophagitis Category: Medical (3) Cervical radiculopathy: Code(s): M54.12 - Radiculopathy, cervical region Category: Medical Plan Irish #Germán live She is here today with her REHABILITATION CONSULTANT who is supportive.ALWAYS CALL HER REHABILITATION CONSULTANT TO SCHEDULE APPTS; call REHABILITATION CONSULTANT Annelise, She continues on her pantoprazole, bentyl, Citrucel, carafate and creon. She does not feel that the Celebrex was helpful for her GU's that are likely cervical in nature. She has not yet been contacted by Pain Mgmt. I give them the phone # to contact them. She was seen at [facility] walk in and they gave her some patches that are more helpful but have not completely resolved the problem. She is taking more of the carafate and is doing much better! Her roid banding procedure also went well and this problem is resolved. ROV 6 mos. Medications: Refilled sucralfate (Carafate) 30 mL PO QNOON 420 mL 6RF pantoprazole 20 mg PO QAM 90 tabs 3RF K21.9 - Gastro-esophageal reflux disease without esophagitis [id number] 3,000-9,500- 15,000 unit (Creon) 2 caps PO BID 120 caps 6RF methylcellulose (laxative) (Citrucel) 500 mg PO BID 60 tabs 6RF dicyclomine 40 mg (2 x 20 mg) PO QID 240 tabs 3RF K58.9 - Irritable bowel syndrome, unspecified Coding Level of Care Code Est Pt Level 3 (53308) Diagnoses Bile salt-induced diarrhea K90.89 GERD (gastroesophageal reflux disease) K21.9 Cervical radiculopathy M54.12
[2024-03-05 14:58] VITALS: BP 133/71; BMI 28.8
== END 2024-03-05 16:19 | disposition home or self-care (01) ==
PROVIDERS: PCP General Practice; Visit Provider Nurse Practitioner
DX: K90.89 Other intestinal malabsorption (principal); K21.9 Gastro-esophageal reflux disease without esophagitis; M54.12 Radiculopathy, cervical region
CPT/HCPCS: 99213

== ENCOUNTER → 2024-03-05 14:40 | Outpatient (BNVA) | payer OTHER, SELFPAY | PROVIDERS: PCP General Practice; Visit Provider Nurse Practitioner | DX: K90.89 Other intestinal malabsorption (principal); K21.9 Gastro-esophageal reflux disease without esophagitis; M54.12 Radiculopathy, cervical region | CPT/HCPCS: 99212 ==

== ENCOUNTER → 2024-04-17 12:18 | Outpatient (BNVA) | payer OTHER, SELFPAY | PROVIDERS: PCP General Practice; Visit Provider Surgery Vascular Surgery | DX: I83.11 Varicose veins of right lower extremity with inflammation (principal) | CPT/HCPCS: 36482; J2003 ==

== ENCOUNTER 2024-04-24 15:15 | Outpatient (REF) | payer OTHER, SELFPAY ==
--- NOTE | ~2024-04-24 | CT_ITS ---
CLINICAL HISTORY: cervical radiculopathy CT head without contrast Comparison: None Findings: No intra-axial mass, midline shift, hydrocephalus, or acute hemorrhage. No significant atrophy-like change or white matter disease. There is no sinus or mastoid fluid. The orbits are within normal limits. There is no acute fracture. IMPRESSION: 1. No acute intracranial findings. This document has been electronically signed by: Sumaya Valdez MD on 04/27/2024 08:26:58
--- OUTSIDE RECORDS SUMMARY | 2024-04-24 15:18 | XMS_ITS | Encounter Summary ---
Author Organization [employer] Address [address] [place] [address] Care Team Providers Care Artist Model Name Role Phone Yelitza Mayers MD Primary Care Provider [phone] Reason for Visit * Reason Comments Med Refill Encounter Details Date Type Department Care Team (Late st Contact Info) Description 04/13/2024 Refill C [facility] [address] [place], [place] [id number] Yelitza Mayers MD [address] [place], [place] [phone] Hyperlipidemia, unspecified hyperlipidemia type Social History Tobacco Use Types Packs/Day Years Used Date Smoking Tobacco: Some Days Cigarettes Passive Smoke Exposure: Current Smokeless Tobacco: Never Alcohol Use Standard Drinks/Week Comments Never 0 (1 standard drink = 0.6 oz pur e alcohol) Housing Stability Answer Date Recorded What is your housing situation today? I have [facility] 01/08/[address] you li ve. Do you have problems with any of the following? None of the above 01/08/2024 Food Insecurity Answer Date Recorded Within the past 12 months, y ou worried that your food would run out before you got money to buy more: Never True 01/08/2024 Within the past 12 months,th e food you bought just didn't last and you didn't have enough money to get more: Never True Transportation Answer Date Recorded In the past 12 months, has l ack of transportation kept you from medical appts, meetings, work or from getting things needed for daily living? No 01/08/2024 Utilities Answer Date Recorded In the past 12 months, has t he electric, gas, oil or water company threatened to shut off services in your home? No 01/08/2024 Depression Answer Date Recorded Patient Health Questionnaire-2 Score 0 06/25/2022 Internet Access Answer Date Recorded Internet Access Q1 Yes 01/08/2024 Internet Access Q2 Not on file 01/08/2024 Comments Unknown Sex and Gender Information Value Date Recorded Sex Assigned at Female 01/22/2022 10:14 AM EDT Legal Sex Female 10:14 AM EDT Gender Identity Female 01/22/2022 10:14 AM EDT Sexual Orientation Straight 01/22/2022 10 :14 AM EDT documented as of this encounter Plan of Treatment Not on file documented as of this encounter Visit Diagnoses Diagnosis Hyperlipidemia, unspecified hyperlipidemia type documented in this encounter Care Teams Artist Model Relationship Specialty Start Date End Date Yelitza Mayers MD [address] [place] [address] PCP - General Family Medicine 03/15/22 documented as of this encounter
--- OUTSIDE RECORDS SUMMARY | 2024-04-24 15:19 | XMS_ITS | Data Portability ---
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 Physical exam reveals no identifiable source of these symptoms involving the auricle, external auditory canal, or tympanic membrane. Examination was positive for crepitus and tenderness of the left jaw joint and heladio-TMJ musculature. The patient's periauricular discomfort is most likely consistent with intermittent inflammation of the jaw joint or spasm of the surrounding musculature. This is likely exacerbated by the missing teeth and gum chewing. I recommended the patient use light massage, warm compresses and anti-inflammator ies for symptomatic management. Stressed chewing evenly on both sides of the mouth to keep from overworking the jaw joint. Use soft food diet as needed. Jaw Joint Program information sheet was shared. If this treatment plan is ineffective, recommend follow up with their dentist.? ? ?Referral to physical therapist who specializes in TMJ disorders was provided For her desire to obtain new hearing aids, patient was provided with a list of locations that accept her insurance. She may follow up as needed. [email or web address] Not available 02/06/2024 16:42:24 Plan of Treatment Reminders Order Date Submit Date Provider Last Modified By Organization Details Last Modified Time Details Appointments None record ed. Lab None record ed. Referral None record ed. Procedures None record ed. Surgeries None record ed. Imaging None record ed. Medication Orders None record ed. Patient TargetsNo targets recorded. Patient InstructionsNo instructions recorded. Reason for Referral None Reported. Problems Name Problem SNOMED Code Status Onset Date Resolution Date Notes Provider Name and Address Organization Details Recorded Time Pain of left temporomand ibular joint 5358811007933 9107 Active 2023 TYLER GUDINO PA-C [address] [facility],[place] [address], [place], [address], [facility] - [facility] [facility] 16:28:46 Edentulous 695942535 Active [address] [place] [place] [address], [place], [address], [facility] - [facility] [place] [facility] 16:28:55 Referred otalgia of left ear 3911864759970 107 Active 2023 GIOVANNA SAHU [address] [address], [place], [phone], [facility] - [facility] 4 16:29:47 Problem Notes None recorded. Medical Equipment None Reported. Medications Name Sig Start Date Stop Date Status Note LastModified by Organization Details LastModified Time medbox status USE DIRECTED active Not Available Not Available No t Available multivitamin tablet TAKE 1 TABLET BY MOUTH EVERY MORNING WITH FOOD active Not Available Not Available No t Available nifedipine ER 30 mg tablet,exten ded release 24 hr TAKE 1 TABLET BY MOUTH EVERY EVENING active Not Available Not Available No t Available atorvastatin 40 mg tablet TAKE 1 TABLET BY MOUTH AT BEDTIME active Not Available Not Available No t Available metformin 500 mg tablet TAKE 1 TABLET BY MOUTH TWICE DAILY IN THE MORNING AND IN THE EVENING WITH FOOD active Not Available Not Available No t Available acetic acid 2 % ear solution APPLY 3 DROPS IN THE LEFT EAR THREE TIMES DAILY FOR 7 DAYS active Not Available Not Available N ot Available gabapentin 600 mg tablet TAKE 1 TABLET BY MOUTH THREE TIMES DAILY IN THE MORNING, EVENING, AND BEDTIME active Not Available Not Available Not Available cefuroxime axetil 250 mg tablet active Not Available Not Available No t Available sucralfate 100 mg/mL oral suspension TAKE 30ml BY MOUTH EVERY DAY AT NOON active Not Available Not Available No t Available clonazepam 1 mg tablet TAKE 1 TABLET BY MOUTH TWICE DAILY IN THE MORNING AND AT BEDTIME NEEDED active Not Available Not Available No t Available acetaminophe n 500 mg tablet TAKE 1 TABLET BY MOUTH EVERY 8 HOURS NEEDED FOR PAIN active Not Available Not Available No t Available pantoprazole 20 mg tablet,delay ed release TAKE 1 TABLET BY MOUTH EVERY MORNING active Not Available Not Available No t Available hydrocortiso ne 2.5 % topical cream with perineal applicator APPLY RECTALLY TWICE DAILY FOR HEMORRHOIDS active Not Available Not Available Not Available dicyclomine 20 mg tablet TAKE 2 TABLETS BY MOUTH FOUR TIMES DAILY active Not Available Not Available Not Available metoprolol tartrate 50 mg tablet TAKE 1 TABLET BY MOUTH TWICE DAILY IN THE MORNING AND IN THE EVENING WITH MEALS active Not Available Not Available N ot Available celecoxib 100 mg capsule TAKE 1 CAPSULE BY MOUTH TWICE DAILY active Not Available Not Available No t Available lisinopril 40 mg tablet TAKE 1 TABLET BY MOUTH EVERY MORNING active Not Available Not Available No t Available Fiber-Lax 625 mg tablet TAKE 1 TABLET BY MOUTH TWICE DAILY active Not Available Not Available No t Available Alcohol Prep Pads USE DIRECTED active Not Available Not Available No t Available duloxetine 60 mg capsule,lucero yed release TAKE 1 CAPSULE BY MOUTH EVERY MORNING active Not Available Not Available No t Available FreeStyle Lite Strips USE DIRECTED TO TEST BLOOD SUGAR THREE TIMES DAILY active Not Available Not Available Not Available Refresh Optive 0.5 %-0.9 % eye drops INSTILL 1 DROP IN EACH EYE DIRECTED active Not Available Not Available No t Available Antacid Extra Strength 300 mg (as calcium carb 750 mg) chewable tablet CHEW AND SWALLOW 1 TABLET TWICE DAILY active Not Available Not Available Not Available diclofenac 1 % topical gel APPLY 1 GRAM TOPICALLY TO AFFECTED AREA(S) THREE TIMES DAILY IN THE MORNING, AT NOON, AND AT BEDTIME NEEDED FOR MODERATE PAIN active Not Available Not Available No t Available Creon 3,000 unit-9,500 unit-15,000 unit capsule,lucero yed release TAKE 2 CAPSULES BY MOUTH TWICE DAILY active Not Available Not Available No t Available TRUEplus Lancets 33 gauge TEST BLOOD SUGAR TWICE DAILY active Not Available Not Available No t Available Vitals Date Recorded Body height Body mass index (BMI) Body weight Provider Name and Address Organization Details Last Updated DateTime 02/06/2024 144.78 cm 28.6 kg/m2 15045.19 g Viktoria Alba [place] [facility] 02/06/2024 16:02:53 Social History None recorded. Functional Status None recorded. Mental Status None recorded. Family History Nothing Reported. Medical History No medical history recorded. Gynecological HistoryNo gynecological history recorded. Obstetrics History GPAL:G 0 P 0 0 0 0 Past Encounters Encounter ID Performer Location Encounter Start Date Encounter Closed Date Diagnosis/Indication Diagnosis SNOMED-CT Code Diagnosis ICD10 Code Diagnosis Note [id number] TYLER GUDINO PA-C [facility] [address] [place] [address] 02/06/2024 15:10:31 02/06/2024 16:35:11 Pain of left temporomandibular joint [id number] 7745542 M26.622 Ed[facility] 533549682 K08 .109 Referred o talgia of left ear [id number] 422163 H92.02 Health Concerns Section Related Observation LastModified by Organization Detai ls LastModified Time None Recorded Concern Status LastModified by Organization Details LastModified Time None Recorded Advance Directives Directive None Recorded Payers Encounter Date Sequence Insurance Name Policy Number Policy Live Covered Member ID Live Member ID Guarantor Name 02/06/2024 1 [facility] - DOS ON OR AFTER 2022 - ONE [employer] (MEDICARE REPLACEMENT/ADV ANTAGE - HMO) Cheryl Elias z [id number] Cheryl Romeo Notes Date Note Type Note Provider Name and Address Organization Details Recorded Time 02/06/2024 text/html 78 year old ebony frank presents with her daughter for evaluation of left otalgia. It started years ago. It is constant, moderately severe, feels like there is something inside the ear. It itches often. She states that there is an abnormal curve in the ear. There is no otorrhea. She feels that her hearing is very poor on that side, has been for a very long time, worse than on the right. Has not had a hearing test in a very long time. Hearing has not changed recently. Used to wear hearing aids but lost one. [employer] insurance. She reports nonpulsatile tinnitus on both sides. 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 She had very bad pain at that time and the pre-existing pain in the left ear has been worse since then. She saw her dentist about a year ago. She wears dentures and feels the uppers fit well but the lower ones hurt her gums and so she does not wear them. She chews gum three times daily. Chewing gum or food makes the ear pain worse. TYLER GUDINO PA-C [address] [facility],[place] [address], [place], [address], [place] - [facility] 02/06/2024 16:43:39 OBGyn Episode No OBEpisode recorded.
--- OUTSIDE RECORDS SUMMARY | 2024-04-24 15:19 | XMS_ITS | Clinical Summary ---
Author Organization [employer] Address [address] [facility] [address] [place] [address] Care Team Providers Care Muffle Operator Name Role Phone Yelitza Mayers MD Primary Care Provider [phone] Allergies Active Allergy Reactions Criticality Noted Date Comments Morphine 04/03/2012 Rosiglitazone 03/28/2010 Other reaction(s): pedal edema Medications Ventolin HFA 108 (90 Base) MCG/ACT inhaler INHALE 1 PUFF BY MOUTH FOUR TIMES DAILY NEEDED SHORTNESS OF BREATH OR FOR WHEEZING Active clonazePAM (KlonoPIN) 1 MG tablet TAKE 1 TABLET BY MOUTH TWICE DAILY IN THE MORNING AND AT BEDTIME NEEDED Active clotrimazole (Lotrimin) 1 % cream APPLY TOPICALLY TO AFFECTED AREA(S) AND SURROUNDING AREA(S) TWICE DAILY IN THE MORNING AND IN THE EVENING Active dicyclomine (Bentyl) 20 MG tablet TAKE 2 TABLETS BY MOUTH FOUR TIMES A DAY Active DULoxetine (Cymbalta) [address] capsule TAKE 1 CAPSULE BY MOUTH EVERY MORNING Active Proctosol HC 2.5 % rectal cream USE 1 APPLICATORFUL RECTALLY TWICE DAILY FOR HEMORRHOIDS Active SM Fiber Laxative 500 MG tablet TAKE 1 TABLET BY MOUTH TWICE DAILY IN THE MORNING AND IN THE EVENING Active nicotine (Nicoderm, Step 2) 14 MG/24HR patch APPLY 1 PATCH TOPICALLY TO THE SKIN DAILY IN THE MORNING THEN REMOVE AT BEDTIME DIRECTED. DO NOT SMOKE WHILE USING PATCH Active nicotine (Nicoderm, Step 3) 7 MG/24HR patch apply 1 patch by transdermal route every day and wear for 16-24 hours. 05/12/2 022 Active nicotine polacrilex (Commit) 2 MG lozenge Dissolve 1 lozenge slowly in mouth every 1-2 hours for 6 weeks, then 1 lozenge every 2-4 hours for 3 weeks, then 1 lozenge every 4-8 hours for 2 weeks Active oxybutynin (Ditropan) 5 MG tablet TAKE 1 TABLET BY MOUTH EVERY TWELVE HOURS NEEDED URINARY LEAKAGE Active Creon 3981-9886 units capsule TAKE 1 CAPSULE BY MOUTH FOUR TIMES DAILY 8AM, 12PM, 3PM, AND 6PM Active pantoprazole (ProtoNix) 20 MG EC tablet TAKE 1 TABLET BY MOUTH EVERY MORNING Active sucralfate (Carafate) 1 GM/10ML suspension take 10 milliliter by oral route at bedtime on an empty stomach Active neomycin-polymyxi n-hydrocortisone (Cortisporin) otic solution USE 5 DROPS IN THE LEFT EAR TWICE DAILY Active Fiber-Lax 625 MG tablet Active GaviLyte-G 236 g solution MIX AND DRINK EVERY 10 MINUTES FOR 1 DAY THE DAY BEFORE COLONOSCOPY UNTIL BOWEL MOVEMENT IS CLEAR. DRINK NO MORE THAN 1/2 OF THE BOTTLE. Active Lidocaine 4 % ointment Apply bid to affected area prn pain 50 g 3 Active lidocaine (Xylocaine) 5 % ointment APPLY TOPICALLY TO THE AFFECTED AREA(S) TWICE DAILY NEEDED FOR PAIN Active TRUEplus Lancets 33G miscIndications:T ype 2 diabetes mellitus with hyperglycemia, unspecified whether laborer marine terminal insulin use ([facility]) TEST BLOOD SUGAR TWICE DAILY DIRECTED 100 each 5 023 Active acetaminophen (Tylenol Extra Strength) 500 MG tablet Take 1 tab orally every 8 hours prn pain 90 tablet 3 024 Active metoprolol tartrate (Lopressor) 50 MG tablet TAKE 1 TABLET BY MOUTH TWICE DAILY IN THE MORNING AND IN THE EVENING WITH MEALS 180 tablet 3 024 Active lisinopril 40 MG tablet TAKE 1 TABLET BY MOUTH EVERY MORNING 90 tablet 3 024 Active NIFEdipine XL (Procardia XL) 30 MG 24 hr tabletIndications :Essential hypertension TAKE 1 TABLET BY MOUTH EVERY EVENING DO NOT BREAK, CRUSH, DISSOLVE OR CHEW 90 tablet 3 Active metFORMIN (Glucophage) 500 MG tabletIndications :Type 2 diabetes mellitus with other specified complication, unspecified whether laborer marine terminal insulin use (CMS/HCC) TAKE 1 TABLET BY MOUTH TWICE DAILY IN THE MORNING AND IN THE EVENING WITH FOOD 180 tablet 3 Active Calcium Antacid Extra Strength 750 MG chewable tablet CHEW AND SWALLOW 1 TABLET TWICE DAILY 60 tablet 5 Active Alcohol Swabs (Alcohol Prep) 70 % pads USE DIRECTED 100 each 11 Active gabapentin (Neurontin) 600 MG tabletIndications :Neuropathy TAKE 1 TABLET BY MOUTH THREE TIMES DAILY IN THE MORNING, EVENING, AND BEDTIME 90 tablet 11 Active Refresh Optive 0.5-0.9 % solution INSTILL 1 DROP IN EACH EYE DIRECTED Active Diclofenac Sodium 1 % gel APPLY 1 GRAM TOPICALLY TO AFFECTED AREA(S) THREE TIMES DAILY IN THE MORNING, AT NOON, AND AT BEDTIME NEEDED FOR MODERATE PAIN Active meloxicam (Mobic) 7.5 MG tablet Take 1 tablet (7.5 mg) by mouth Once per day. For arthiritis 30 tablet 024 2024 Active glucose blood (FREESTYLE LITE) test strip TEST BLOOD SUGAR 3 TIMES A DAY 100 strip 11 Active Multiple Vitamin (Multivitamin) tabletIndications :Adult general medical exam TAKE 1 TABLET BY MOUTH EVERY MORNING WITH FOOD 90 tablet 3 024 Active atorvastatin (Lipitor) 40 MG tabletIndications :Hyperlipidemia, unspecified hyperlipidemia type TAKE 1 TABLET BY MOUTH AT BEDTIME 90 tablet 3 025 Active atorvastatin (Lipitor) 40 MG tabletIndications :Hyperlipidemia, unspecified hyperlipidemia type TAKE 1 TABLET BY MOUTH AT BEDTIME 90 tablet 3 024 2024 Discontinued Active Problems Problem Noted Date Diagnosed Date Intractable headache 03/02/2024 Assessment & Plan (03/02/2024 8:40 PM EST): Worsening daily headache, suspect secondary to msk spasm from cervical radiculopathy for which pt is in care, Will order head CT as pt reports headache awoke pt from sleep and is worst headache of life Pt declines ER evaluation Cervicalgia 03/02/2024 Trigeminal neuralgia of right side of face 03/02 Assessment & Plan (03/02/2024 8:40 PM EST): Continue gabapentin, suspect cervical radiculopathy as pain is on right side of face Imaging as ordered above Osteoarthritis of cervical spine with myelopathy 01/17/2024 Unsteady gait when walking 06/03/2023 Assessment & Plan (06/03/2023 4:47 PM EDT): PT referral for gait training TMJ (dislocation of temporomandibular joint) Assessment & Plan (04/18/2023 6:54 AM EST): Refer to ENT Obstructive sleep apnea 04/18/2023 Assessment & Plan (06/03/2023 4:46 PM EDT): Awaiting CPAP from [facility] Assessment & Plan (04/18/2023 6:56 AM EST): DME order submitted for CPAP at auto titrate 6-16 mmHg with humidifer Diabetic polyneuropathy asso ciated with type 2 diabetes mellitus 01/24/2023 Assessment & Plan (01/24/2023 1:02 PM EDT): Increase Gabapentin to 600mg TID Hypersomnia 01/21/2023 Assessment & Plan (01/24/2023 1:03 PM EDT): Does not wake up feeling refreshed, feels tired throughout the day Snoring noted by caregiver Elbow swelling 11/02/2022 Snoring 11/02/2022 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 associated with type 2 diabetes mellitus 10/23/2022 Chronic right shoulder pain 06/25/2022 Assessment & Plan (06/25/2022 11:15 AM EDT): Likely OA Continue Voltaren prn History of total knee arthroplasty 03/23/2022 Shoulder pain 03/23/2022 Cigarette smoker 06/23/2019 Assessment & Plan (04/03/2022 9:56 AM EST): Declines cessation Stage 3 chronic kidney disease 06/23/2019 Assessment & Plan (04/03/2022 9:55 AM EST): Avoid nephrotoxic medications Continue nephrology followup Type 2 diabetes mellitus 08/28/2018 Assessment & Plan (09/10/2023 7:08 PM EDT): A1c 7.2 Continue Metformin 500mg BID Continue Gabapentin 600mg for neuropathy TIERRA done 09/2022 with MNPDR Assessment & Plan (06/03/2023 4:48 PM EDT): A1c 7.6 Continue Metformin 500mg BID DE done 09/2022 with MNPDR Assessment & Plan (01/24/2023 1:03 PM EDT): A1c 7.4 Continue Metformin 500mg BID DE done 09/2022 with MNPDR Assessment & Plan (11/02/2022 12:50 PM EDT): A1c 7.4 Continue Metformin 500mg BID DE done 09/2022 with MNPDR Assessment & Plan (06/25/2022 11:09 AM EDT): A1c 6.4 Continue Metformin 500mg BID Assessment & Plan (04/03/2022 9:56 AM EST): A1c 6.4 Continue Metformin Decreased hearing 12/06/2017 Constipation 08/15/2017 Posttraumatic stress disorder 06/07/2017 Edentulous 10/03/2016 Severe recurrent major depression with psychotic features 07/30/2016 Assessment & Plan (04/03/2022 9:56 AM EST): Continue current medication PHQ2 score of 2 today Vitamin D deficiency 05/30/2016 Hyperlipidemia due to type 2 diabetes mellitus ( 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 Gastroesophageal reflux disease 01/06/2015 Hiatal hernia 01/06/2015 Irritable bowel syndrome 01/06/2015 Osteopenia 01/06/2015 Spinal stenosis 01/06/2015 Assessment & Plan (06/25/2022 11:08 AM EDT): Pain exacerbation after falls Normal xrays of lumbar spine and pelvis Has fallen ou of bed x 3 due to pain and poor mobility Script placed for semi-electric hospital bed for safety Assessment & Plan (04/03/2022 9:54 AM EST): Pain exacerbation after fall two weeks ago xrays ordered of lumbar spine and pelvis Urge incontinence of urine 01/06/2015 Assessment & Plan (06/25/2022 11:09 AM EDT): pullups ordered Oxybutynin not helpful Essential hypertension 01/06/2015 Assessment & Plan (09/10/2023 7:11 PM EDT): Continue current medications Daily BP checking Notify us if > 160/100 for three readings Low Na diet <2gm per day Assessment & Plan (06/03/2023 4:46 PM EDT): Continue current medications Daily BP checking Notify us if > 160/100 for three readings Low Na diet <2gm per day Assessment & Plan (06/25/2022 11:08 AM EDT): Continue current medications Daily BP checking Notify us if > 160/100 for three readings Low Na diet <2gm per day Assessment & Plan (04/03/2022 9:55 AM EST): Continue current medications Daily BP checking Notify us if > 160/100 for three readings Low Na diet Resolved Problems Problem Noted Date Diagnosed Date Resolved Date Acute otitis media 03/23/2022 3 Encounters Date Type Department Care Team Description 04/13/2024 Refill [facility] [address] [facility] [place] [address] Yelitza Mayers MD Hyperlipidemia, unspecified hyperlipidemia type 03/02/2024 4:00 PM EST Office Visit [facility] [address] [place] [address] Mita Brar NP Intractable headache, unspecified chronicity pattern, unspecified headache type (Primary Dx); Cervicalgia; Trigeminal neuralgia of right side of face 03/02/2024 Telephone [facility] [address] [place] [address] Judith Ang, TANVI walk in triage 02/12/2024 Refill [facility] [address] [place] [address] Yelitza Mayers MD Adult general medical exam from Last 3 Months Immunizations Name Administration Dates Next Due Influenza High-dose Quadriva lent Preservative Free 01/21/2023,12/05/2021,12/18/2019 Influenza injectable quadriv alent IIV4 with preservative 02/08/2017,12/08/2015,12/28/2014 Influenza injectable quadriv alent preservative free 04/21/2018 Influenza, High Dose Seasona l, Preservative Free 01/15/2024,01/03/2018 Influenza, IIV3, injectable 01/11/2007 Pfizer Covid-19 Vaccine 12+ Bivalent 03/30/2022 Pneumococcal Conjugate PCV 13 09/08/2015 Pneumococcal Polysaccharide PPSV23 10/11/2010, TD (adult), 2 Lf tetanus tox oid, preservative free, adsorbed 03/08/2003,10/09/1994 Tdap 12/06/2020,10/11/2010 Zoster, Recombinant 04/12/2022,07/28/2017,2017 Zoster, live 10/28/2014 Social History Tobacco Use Types Packs/Day Years Used Date Smoking Tobacco: Some Days Cigarettes Passive Smoke Exposure: Current Smokeless Tobacco: Never Tobacco Cessation:Ready to Q uit: Not Asked; Counseling Given: Not Answered Alcohol Use Standard Drinks/Week Comments Never 0 [...] Orientation Straight 01/22/2022 10 :14 AM EDT Last Filed Vital Signs Vital Sign Reading Time Taken Comments Blood Pressure 145/81 03/02/2024 3:41 PM EST Pulse 99 03/02/2024 3:41 PM EST Temperature 36.7 ??C (98.1 ??F) 03/02/2024 3:41 PM ES T Respiratory Rate 19 03/02/2024 3:41 PM EST Oxygen Saturation 99% 04/29/2023 3:11 PM EST Inhaled Oxygen Concentration - - Weight 60.2 kg (132 lb 12.8 oz) 01/15/2024 3:36 PM EDT Height 144.8 cm (4' 9 ) 01/15/2024 3:36 PM EDT Body Mass Index 28.74 01/15/2024 3:36 PM EDT Plan of Treatment Health Maintenance Due Date Last Done Comments Diabetes: Foot Exam 08/01/1955 Eye Exam 08/01/1955 Alcohol/Substance Use Screening 1957 Hepatitis C Screening 08/01/1963 RSV Patients and Patients Aged 60 years or older (1 - 1-dose 75+ series) 2020 Depression Screening 06/26/2023 06/25/2022, 06/26/19 COVID-19 Vaccine ( season) 2023 03/30/2022, 08/08/2021, 03/15/2021, Additional history exists Diabetes: Hemoglobin A1C 04/16/2024 024, 09/09/2023, 06/03/2023, Additional history exists SDOH Screening 01/07/2025 01/08/2024 Diabetes: Urine Protein Screening 01/22/2025 01/23/2024, 04/04/2020 Lipid Panel 01/22/2025 01/23/2024, 04/04/2020 Tobacco Screening 03/02/2025 03/02/2024 DTaP/Tdap/Td Vaccines (3 - Td or Tdap) 12/06/2030 12/06/2020, 10/11/2010, 03/08/2003, Additional history exists Pneumococcal Vaccine: 50+ Years Completed 09/08/2015, 10/11/2010, 10/05/1999 Zoster Vaccines Completed 04/12/2022, 08/2017, 07/20/2017, Additional history exists Influenza Vaccine Completed 01/15/2024, , 12/05/2021, Additional history exists HIB Vaccines Aged Out No longer eligi ble based on patient's age to complete this topic HPV Vaccines Aged Out No longer eligi ble based on patient's age to complete this topic Hepatitis A Vaccines Aged Out No long er eligible based on patient's age to complete this topic Hepatitis B Vaccines Aged Out No long er eligible based on patient's age to complete this topic IPV Vaccines Aged Out No longer eligi ble based on patient's age to complete this topic Meningococcal Vaccine Aged Out No fly carlos manuel eligible based on patient's age to complete this topic RSV under 20 months Aged Out No longe r eligible based on patient's age to complete this topic Rotavirus Vaccines Aged Out No longer eligible based on patient's age to complete this topic Procedures Procedure Name Priority Date/Time Associated Diagnosis Comments URINALYSIS, COMPLETE, WITH REFLEX TO CULTURE Routine 01/23/2024 11:20 AM EDT Dysuria ALBUMIN, RANDOM URINE W/CREATININE Routine 01/23/2024 11:15 AM EDT Type 2 diabetes mellitus with other specified complication, unspecified whether laborer marine terminal insulin use ([facility]) COMPREHENSIVE METABOLIC PANEL Routine 01/23/2024 11:15 AM EDT Type 2 diabetes mellitus with other specified complication, unspecified whether laborer marine terminal insulin use ([facility]) LIPID PANEL, STANDARD Routine 01/23/2024 11:15 AM EDT Type 2 diabetes mellitus with other specified complication, unspecified whether [facility] use ([facility]) POCT GLYCATED HEMOGLOBIN, TOTAL Routine 01/15/2024 3:40 PM EDT Type 2 diabetes mellitus with other specified complication, unspecified whether [facility] use ([facility]) from Last 3 Months or Most Recently Relevant to Health Maintenance Results * (ABNORMAL) Urinalysis, Complete, with Reflex to Culture (01/23/2024 11:20 AM EDT) Color Urine Yellow [facility] Appearance Urine Clear [facility] PH 5.5 5.0 - 9.0 [facility] Glucose Urine UA Negative Negative mg/dL [facility] Urine Blood Negative Negative [facility] Specific [place] - Urine 1.020 1.005 - 1.025 [facility] Urine Protein Negative Neg-Trace mg/dL [facility] Urine Ketones Negative Negative mg/dL [facility] Nitrite Urine Negative Negative [facility] Leukocyte Esterase Urine Negative Negative [facility] RBC Urine 3-5(A) 0 - 2 /HPF [facility] Urine WBC 0-5 0 - 5 /HPF [facility] Urine Squamous Epithelial Cell 3-5 0 - 2 /HPF [facility] Urine Bacteria None Seen None Seen [facility] Hyaline Casts, Urine 0-2 0 - 2 /LPF [facility] Urine 01/23/2024 11:2 0 AM EDT 01/23/2024 1:10 PM EDT Narrative [facility] - 01/23/2024 1:29 PM EDT Urine, Clean Catch Yelitza Mayers MD LAB URINE ORDERABLES Final Res ult Performing Organization Address [facility] Co de Phone Number [facility] [address] [place] [phone] * Albumin, Random Urine W/Creatinine (01/23/2024 11:15 AM EDT) Creatinine, Urine 108.30 mg/dL [facility] Microalbumin Urine 15.0 mg/L [facility] Microalbum Creatinine Ratio Ur 13.8 <30 ug/mg cr [facility] Comment:Albumin/Creatinine R atio Reference Ranges: Normal: < 30 ug/mg creatinine Microalbuminuria: 30 - 300 ug/mg creatinineClinical Albuminuria: > 300 ug/mg creatinine Urine (Urine, Random) 01/23/2024 11:15 AM EDT 01/23/2024 1:10 PM EDT Yelitza Mayers MD LAB URINE ORDERABLES Final Res ult Performing Organization Address [facility] Co de Phone Number [facility] [address] [place] [phone] * (ABNORMAL) Lipid Panel, Standard (01/23/2024 11:15 AM EDT) Triglycerides 93 <150 mg/dL [facility] Comment:Desirable Triglyceri de: less than 150 mg/dLBorderline High Triglyceride 150-199 mg/dLHigh Triglyceride: 200-499 mg/dLVery High Triglyceride: greater than or equal to 5OO mg/dL Cholesterol 124 <200 mg/dL [facility] Comment:Desirable Cholestero l: less than 200 mg/dLBorderline High Cholesterol: 200-239 mg/dLHigh Cholesterol: greater than 239 mg/dL LDL Cholesterol Calculated 66 <100 mg/dL [facility] Comment:Desirable LDL: less than 100 mg/dLNear Optimal/Above Optimal LDL: 110- 129 mg/dLBorderline High LDL: 130-159 mg/dLHigh LDL: 160-189 mg/dLVery High LDL: greater than or equal to 190 mg/dL HDL Cholesterol 40(L) >40 mg/dL [facility] Comment:Desirable HDL: great er than 40 mg/dL Note: This HDL assay may give artificially low results in patients with liver disease. Blood Venous blood specimen / Unknown 01/23/2024 11:15 AM EDT 01/23/2024 1:17 PM EDT us Yelitza Mayers MD LAB BLOOD ORDERABLES Final Res ult [facility] [address] [place], [place] [phone] * (ABNORMAL) Comprehensive Metabolic Panel (01/23/2024 11:15 AM EDT) Sodium 140 135 - 145 mmol/L [facility] Potassium 3.9 3.3 - 5.1 mmol/L [facility] Chloride 109(H) 96 - 108 mmol/L [facility] Carbon Dioxide 21(L) 22 - 29 mmol/L [facility] Anion Gap 14 12 - 20 [facility] Urea Nitrogen (BUN) 17(H) 9 - 16 mg/dL [facility] Creatinine, Serum 0.73 0.5 - 1.4 mg/dL [facility] Estimated Glomerular Filt Rate >60 [facility] Comment:NOTE: For -Am erican individuals, multiply the result by 1.210.Chronic Kidney Disease: Estimated GFR < 60 mL/min/[id number] Kidney Disease: Estimated GFR < 15 mL/min/1.73m2 Glucose 157(H) 60 - 115 mg/dL [facility] Calcium 10.1 8.4 - 10.2 mg/dL [facility] Bilirubin, Total 0.3 0.0 - 1.0 mg/dL [facility] Aspartate Amino Transferase 22 5 - 31 U/L [facility] Alanine Aminotransferase 20 0 - 31 U/L [facility] Total Protein 7.4 6.5 - 8.0 g/dL [facility] Albumin Level 4.2 3.5 - 5.0 g/dL [facility] Alkaline Phosphatase 85 39 - 117 U/L [facility] Blood Venous blood specimen / Unknown 01/23/2024 11:15 AM EDT 01/23/2024 1:17 PM EDT Yelitza Mayers MD LAB BLOOD ORDERABLES Final Res ult [facility] [address] [place] [phone] * (ABNORMAL) POCT A1C (01/15/2024 3:40 PM EDT) Hemoglobin A1C 7.2(A) 4.0 - 6.0 % QC Media Lot # [id number] Lot# Expiration Date ,[id number] Blood 01/15/2024 3:40 PM EDT Yelitza Mayers MD POINT OF CARE TEST ENTER/EDIT ORDERABLES Final Result from Last 3 Months or Most Recently Relevant to Health Maintenance Insurance [facility] Care Teams Muffle Operator Relationship Specialty Start Date End Date Yelitza Mayers MD [address] [place] [phone] PCP - General Family Medicine 03/15/22
== END 2024-04-24 15:16 | disposition home or self-care (01) ==
LOC: HO.CT 15:15
PROVIDERS: PCP General Practice; Visit Provider Nurse Practitioner Family
DX: R51.9 Headache, unspecified (principal)
CPT/HCPCS: 70450

== ENCOUNTER → 2024-04-24 15:18 | Outpatient (BNV) | payer OTHER, SELFPAY | PROVIDERS: PCP General Practice; Visit Provider Radiology Diagnostic Radiology | DX: M54.12 Radiculopathy, cervical region (principal) | CPT/HCPCS: 70450 ==

== ENCOUNTER 2024-05-07 11:33 | Outpatient (AMB) | payer OTHER, SELFPAY ==
--- NOTE | 2024-05-07 11:36 | A.OFFVIS_ITS ---
Intake Visit Reasons: Follow Up right venaseal Intake Note: Patient presents for follow up right venaseal. She states sge is experiencing minimal swelling. Accompanied by: HAND SHOES SEWER Allergies morphine [MORPHINE] Allergy (Intermediate, Verified 05/07/24 11:37) GI UPSET,TACHYCARDIA clams Adverse Reaction (Intermediate, Verified 05/07/24 11:37) GI UPSET rosiglitazone [From AVANDIA] Adverse Reaction (Unknown, Verified 05/07/24 11:37) PEDAL EDEMA clam Allergy (Unknown, Uncoded 04/17/24 12:20) unknown HPI HPI Follow Up right venaseal: Details: Very pleasant 78-year-old female presents for follow-up status post right great saphenous vein ablation. Reports overall doing fairly well. No other interval issues. She reports that the overall swelling and discomfort have decreased. Now for routine postprocedure follow-up. [facility] Medical History Hemorrhoids that prolapse with straining, but retract spontaneously Atrophic gastritis RUQ abdominal pain Asthma exacerbation Periumbilical abdominal pain Elevated lipase Urinary frequency Cellulitis Wound of left lower extremity Hemorrhoids, internal, with bleeding Lumbar radiculopathy IBS (irritable bowel syndrome) Wheezing Cough Pre-op examination Incisional hernia Sebaceous cyst of axilla HTN (hypertension) Diabetes Surgical History Status post right knee replacement History of back surgery Hx of cholecystectomy Hx of endoscopy History of colonoscopy Family History Father No problems noted. Mother No problems noted. Social History Alcohol intake: never Patient Tobacco Use Status: Current everyday Tobacco user Cigarettes Per Day: 5 Review of Systems Const All systems reviewed & are unremarkable except as noted in HPI and below Reports no additional complaints ENT Reports Normal hearing present Card Denies chest pain, Denies chest pain at rest, Denies chest pain with activity and Denies pedal edema Resp Denies cough GI Denies abdominal pain Musc Denies abnormal gait, Denies muscle cramps and Denies radiating pain into limb Skin/Breast Denies skin ulcer and Denies wounds Neuro Reports Normal hearing present and Denies abnormal gait Psych Reports no additional complaints Physical Exam Const General: cooperative, healthy appearing and comfortable Orientation/consciousness: oriented to person, oriented to place and oriented to time HEENT Head: Yes normal to inspection Neck Neck: Yes normal visual inspection Carotids: no bruits Chest Chest palpation & inspection: normal inspection of the chest Resp Effort & Inspection: normal respiratory effort and able to speak in complete sentences Auscultation: clear to auscultation bilaterally, no crackles, no rales, no rhonchi and no wheezes Cardio Rate: regular rate Rhythm: regular rhythm Heart sounds: S1 normal heart sound present and S2 normal heart sound present Bruits: no carotid bruits Peripheral pulses: Peripheral pulses 2+ throughout GI Inspection: Yes normal to inspection Skin Wounds: no wounds Hair: normal Neuro General: oriented to person, oriented to place and oriented to time Cranial nerves: Yes CN's II-XII intact bilaterally and Yes Normal hearing present Cognition (Neuro): normal cognition Motor exam (neuro): 5/5 motor strength present throughout Extrem Other: venous exam: No significant superficial varicosities or spider telangiectasias, minimal edema General: No clubbing, No cyanosis and No edema Psych Appearance: grossly normal Mental Status: mental status grossly normal Speech and movement: Normal speech and movement present Results Reviewed Results Reviewed: Brief summary of venous insufficiency testing is as follows: right great saphenous vein: Ablated right small saphenous vein: negative right accessory vein: none present left great saphenous vein: negative left small saphenous vein: negative left accessory vein: none present Please note there is no evidence of any venous aneurysms or significant tortuosity Assessment & Plan Assessment & Plan (1) Varicose veins of right lower extremity with inflammation: Comment: 04/17/2024 - right great saphenous vein Cyanoacralate ablation Code(s): I83.11 - Varicose veins of right lower extremity with inflammation Category: Medical Plan: The patient has done extremely well with all venous treatments. Patient's may often experience postprocedure phlebitic episodes and I have discussed with the patient use of warm compresses and NSAIDS if tolerated for pain discomfort. In addition, I have discussed continued conservative measures including use of compression, leg elevation, and exercise. The patient was also given an information sheet regarding appropriate use of compression stockings and future purchases. Thank you for allowing us to care for your patient with venous disease. Coding Level of Care Code Est Pt Level 3 (41592) Diagnoses Varicose veins of right lower extremity with inflammation I83.11
--- OUTSIDE RECORDS SUMMARY | 2024-05-07 12:10 | XMS_ITS | Encounter Summary ---
Author Organization [employer] Address [address] [facility] [address] [facility] [address] [place] [address] Care Team Providers Care Repairer Controller Tester Name Role Phone Yelitza Mayers MD Primary Care Provider [phone] Encounter Details Date Type Department Care Team (Late st Contact Info) Description 04/27/2024 Telephone [facility] MEDICINE [address] [place], [place] [phone] Lila Em, RN [address] [place], [place] [phone] Social History Tobacco Use Types Packs/Day Years [...] AM EDT documented as of this encounter Miscellaneous Notes * Telephone Encounter - Lila Em RN - 04/27/2024 1:15 PM EST T/C to pt to advise of message from Mita Brar NETWORK DEVELOPMENT COORDINATOR that CT head returned normal. No answer, v/m left to return call to [facility] team nurses. * Telephone Encounter - Lila Em RN - 04/27/2024 1:10 PM EST ----- Message from Mita Brar sent at 04/27/2024 12:50 PM EST ----- Please let pt know CT of head was normal thank you documented in this encounter Plan of Treatment Upcoming Encounters Date Type Department Care Team (Late st Contact Info) Description 06/17/2024 3:00 PM EDT Office Visit [facility] MED[facility]INE [address] [place] [address] Yelitza Mayers MD [address] [place] [address] documented as of this encounter Visit Diagnoses Not on filedocumented in this encounter Care Teams Repairer Controller Tester Relationship Specialty Start Date End Date Yelitza Mayers MD [address] [place] [address] PCP - General Family Medicine 03/15/22 documented as of this encounter
--- OUTSIDE RECORDS SUMMARY | 2024-05-07 12:10 | XMS_ITS | Encounter Summary ---
Author Organization [employer] Address [address] [place] [address] Care Team Providers Care Landscape Manager Name Role Phone Yelitza Mayers MD Primary Care Provider [phone] Reason for Visit * Reason Onset Date Comments recall 04/28/2024 Encounter Details Date Type Department Care Team (Late st Contact Info) Description 04/28/2024 Telephone [facility] MEDICINE [address] [place] [address] Enedina Echavarria MA recall Social History Tobacco Use Types Packs/Day Years [...] encounter Miscellaneous Notes * Telephone Encounter - Enedina Echavarria MA - 04/28/2024 11:31 AM EST T/C placed spoke with pt, pt agreed to come in on 06/17/24 at 3pm documented in this encounter Plan of Treatment Upcoming Encounters Date Type Department Care Team (Late st Contact Info) Description 06/17/2024 3:00 PM EDT Office Visit [facility] MEDICINE [address] [place] [address] Yelitza Mayers MD [address] [place] [address] documented as of this encounter Visit Diagnoses Not on filedocumented in this encounter Care Teams Landscape Manager Relationship Specialty Start Date End Date Yelitza Mayers MD [address] [place] [address] PCP - General Family Medicine 03/15/22 documented as of this encounter
--- OUTSIDE RECORDS SUMMARY | 2024-05-07 12:10 | XMS_ITS | Encounter Summary ---
Author Organization [employer] Address [address] [facility] 7[address] [place] [address] Care Team Providers Care Sales And Marketing Executive Name Role Phone Yelitza Mayers MD Primary Care Provider [phone] Reason for Visit * Reason Comments Med Refill Encounter Details Date Type Department Care Team (Late st Contact Info) Description 04/13/2024 Refill [facility] [address] [place], [place] [phone] Yelitza Mayers MD [address] [facility] [place], [place] [phone] Hyperlipidemia, unspecified hyperlipidemia type Social History Tobacco [...] as of this encounter Plan of Treatment Upcoming Encounters Date Type Department Care Team (Late st Contact Info) Description 06/17/2024 3:00 PM EDT Office Visit [facility] MEDICINE [address] [place] [address] Yelitza Mayers MD [address] [place] [address] documented as of this encounter Visit Diagnoses Diagnosis Hyperlipidemia, unspecified hyperlipidemia type documented in this encounter Care Teams Sales And Marketing Executive Relationship Specialty Start Date End Date Yelitza Mayers MD [address] [place] [address] PCP - General Family Medicine 03/15/22 documented as of this encounter
--- OUTSIDE RECORDS SUMMARY | 2024-05-07 12:10 | XMS_ITS | Data Portability ---
Author Organization [place] [facility], Allergy Address [address] [place] [address] Care Team Providers Care Thread Twister Name Role Phone GREG CARUSO Referring Provider [...] Time Pain of left temporomand ibular joint 8870674065387 9107 Active 2023 TYLER GUDINO PA-C [address] [facility],[place] [address], [place], [address], [facility] - [facility] [place] 4 16:28:46 Edentulous 084494816 Active 20[address] [place] [address], [place], [address], [facility] - [facility] [place] 4 16:28:55 Referred otalgia of left ear 5053130467964 107 Active 2023 GIOVANNA SAHU [address] [address], [place], [address], [facility] - [facility] [place] 4 16:29:47 Problem Notes None recorded. Medical [...] Updated DateTime 02/06/2024 144.78 cm 28.6 kg/m2 98316.19 g Viktoria Alba [place] [facility] 02/06/2024 16:02:53 Social History None recorded. Functional Status None recorded. Mental Status None recorded. Family History Nothing Reported. Medical History No medical history recorded. Gynecological HistoryNo gynecological history recorded. Obstetrics History GPAL:G 0 P 0 0 0 0 Past Encounters Encounter ID Performer Location Encounter Start Date Encounter Closed Date Diagnosis/Indication Diagnosis SNOMED-CT Code Diagnosis ICD10 Code Diagnosis Note [id number] TYLER GUDINO PA-C [facility] [address] [place] [address] 02/06/2024 15:10:31 02/06/2024 16:35:11 Pain of left temporomandibular joint 3215420104 8637523 M26.622 [facility] 638673226 K08 .109 Referred o talgia of left ear 9508883022 657529 H92.02 Health Concerns Section Related Observation LastModified by Organization Detai ls LastModified Time None Recorded Concern Status LastModified by Organization Details LastModified Time None Recorded Advance Directives Directive None Recorded Payers Encounter Date Sequence Insurance Name Policy Number Policy Live Covered Member ID Live Member ID Guarantor Name 02/06/2024 1 [facility] - DOS ON OR AFTER 2022 - ONE CARE (MEDICARE REPLACEMENT/ADV ANTAGE - HMO) Cheryl Elias z [id number] Cheryl Romeo Notes Date Note Type Note [...] ear pain worse. TYLER GUDINO PA-C [address] [facility],[place] [address], [place], [address], [place] [facility] 02/06/2024 16:43:39 OBGyn Episode No OBEpisode recorded.
--- OUTSIDE RECORDS SUMMARY | 2024-05-07 12:10 | XMS_ITS | Clinical Summary ---
Author Organization [employer] Address [address] [facility] 7t [place] [address] Care Team Providers Care Sales Representative [employer] Name Role Phone Yelitza Mayers MD Primary Care Provider [phone] Allergies Active Allergy Reactions Criticality Noted Date [...] TWELVE HOURS NEEDED URINARY LEAKAGE Active Creon 8464-9382 units capsule TAKE 1 CAPSULE BY MOUTH [...] 2 diabetes mellitus with hyperglycemia, unspecified whether electromedical service engineer insulin use ([facility]) TEST BLOOD SUGAR TWICE DAILY DIRECTED 100 [...] mellitus with other specified complication, unspecified whether electromedical service engineer insulin use (CMS/HCC) TAKE 1 TABLET BY [...] due to type 2 diabetes mellitus ( [facility]) 03/04/2015 Assessment & Plan (04/03/2022 9:56 AM [...] Encounters Date Type Department Care Team Description 04/28/2024 Telephone [facility] MEDICINE [address] [place] [phone] [place] EnedinaQUINTON recall 04/27/2024 Telephone [facility] MEDICINE [address] [place] [address] Lila Em, TANVI 04/13/2024 Refill [facility] MED & PEDS [address] [place] [address] Yelitza Mayers MD Hyperlipidemia, unspecified hyperlipidemia type 03/02/2024 4:00 PM EST Office Visit [facility] [address] [place] [address] Mita Brar NP Intractable headache, unspecified chronicity pattern, unspecified headache type (Primary Dx); Cervicalgia; Trigeminal neuralgia of right side of face 03/02/2024 Telephone [facility] MEDICINE [address] [place], [place] [phone] Judith Ang RN walk in triage 02/12/2024 Refill [facility] [address] [place], [place] [phone] Yelitza Mayers MD Adult general medical exam [...] 01/15/2024 3:36 PM EDT Plan of Treatment Upcoming Encounters Date Type Department Care Team (Late st Contact Info) Description 06/17/2024 3:00 PM EDT Office Visit [facility] MEDICINE [address] [place] [address] Yelitza Mayers MD [address] [place] [address] Health Maintenance Due Date Last Done Comments [...] 09/08/2015, 10/11/2010, 10/05/1999 Zoster Vaccines Completed 04/12/2022, 05/0 08/2017, 07/20/2017, Additional history exists Influenza Vaccine [...] Procedure Name Priority Date/Time Associated Diagnosis Comments CT HEAD WO CONTRAST Routine 04/27/2024 8 :26 AM EST Intractable headache, unspecified chronicity pattern, unspecified headache type ALBUMIN, RANDOM URINE W/CREATININE Routine 01/23/2024 11:15 AM EDT Type 2 diabetes mellitus with other specified complication, unspecified whether electromedical service engineer insulin use (CMS/HCC) LIPID PANEL, STANDARD Routine 01/23/2024 11:15 AM EDT Type 2 diabetes mellitus with other specified complication, unspecified whether alf insulin use (CMS/HCC) POCT GLYCATED HEMOGLOBIN, TOTAL Routine 01/15/2024 3:40 PM EDT Type 2 diabetes mellitus with other specified complication, unspecified whether electromedical service engineer insulin use (CMS/HCC) from Last 3 Months or Most Recently Relevant to Health Maintenance Results * CT Head w/o Contrast (04/27/2024 8:26 AM EST) Anatomical Region Laterality Modality Head, Neck Computed Tomogra phy 04/27/2024 8:26 AM EST Narrative 04/27/2024 8:27 AM EST ? [facility] ?[address] ?[place] [address] ? CT Scan Report ? Signed ? Patient: Romeo,Tuyet ?MR#: [id number] ? : 1945 ?Acct:[id number] ? Age/Sex: 78 / F ?ADM Date: 04/24/ ? Loc: HO.CT ? Attending Dr: Mita Brar CANCELING MACHINE OPERATOR ? Ordering Physician: Mita Brar NP ?? Date of Service: 04/24/24 ?? Procedure(s): CT head/brain wo IV con ?? Accession Number(s): [id number] ? cc: Mita Brar NP; Yelitza Mayers ? Report Number: ?? [id number]: Total DLP = ??651.00 mGy-cm ? CLINICAL HISTORY: cervical radiculopathy ? CT head without contrast ? Comparison: None ? Findings: ?? No intra-axial mass, midline shift, hydrocephalus, or acute hemorrhage. ?? No significant atrophy-like change or white matter disease. ? There is no sinus or mastoid fluid. ?? The orbits are within normal limits. ?? There is no acute fracture. ? IMPRESSION: ?? 1. No acute intracranial findings. ? This document has been electronically signed by: Sumaya Valdez MD on ?? 04/27/2024 08:26:58 ? Dictated By: ?Sumaya Valdez MD ? Signed By: ?<Electronically signed by Sumaya Valdez MD in OV> ?04/27/24826 ? DD/ 5 ? TD/TT: 04/27/24825 ? Crystal Calibrator: ? Procedure Note Mayelin Meehan - 04/27/[address] [place] [address] [address] Scan Report Signed Patient: Cheryl Romeo MMR#: [id number] : 1945cct:[id number] Age/Sex: 78 / FADM Date: 04/24/24 Loc: HO.CT Attending Dr: Mita Brar CANCELING MACHINE OPERATOR Ordering Physician: Mita Brar NP Date of Service: 04/24/24 Procedure(s): CT head/brain wo IV con Accession Number(s): [id number] cc: Mita Brar CANCELING MACHINE OPERATOR; Yelitza Mayers Report Number: [id number]: Total DLP = 651.00 mGy-cm CLINICAL HISTORY: cervical radiculopathy CT head without contrast Comparison: None Findings: No intra-axial mass, midline shift, hydrocephalus, or acute hemorrhage. No significant atrophy-like change or white matter disease. There is no sinus or mastoid fluid. The orbits are within normal limits. There is no acute fracture. IMPRESSION: 1. No acute intracranial findings. This document has been electronically signed by: Sumaya Valdez MD on 04/27/2024 08:26:58 Dictated By: Sumaya Valdez MD Signed By: <Electronically signed by Sumaya Valdez MD in OV> 04/27/24826 DD/ 5 TD/TT: 04/27/24825 Crystal Calibrator: us Mita Brar CANCELING MACHINE OPERATOR IMG CT PROCEDURES Final Result * Albumin, Random Urine W/Creatinine (01/23/2024 11:15 AM EDT) Creatinine, Urine 108.30 mg/dL [facility] Microalbumin Urine 15.0 mg/L [facility] Microalbum Creatinine Ratio Ur 13.8 <30 ug/mg cr [facility] Comment:Albumin/Creatinine R atio Reference Ranges: Normal: < 30 ug/mg creatinine Microalbuminuria: 30 - 300 ug/mg creatinineClinical Albuminuria: > 300 ug/mg creatinine Urine (Urine, Random) 01/23/2024 11:15 AM EDT 01/23/2024 1:10 PM EDT us Yelitza Mayers MD LAB URINE ORDERABLES Final Res ult [facility] [address] [place] [phone] * (ABNORMAL) Lipid Panel, Standard (01/23/2024 11:15 AM EDT) Triglycerides 93 <150 mg/dL [facility] Comment:Desirable Triglyceri de: less than 150 mg/dLBorderline High Triglyceride 150-199 mg/dLHigh Triglyceride: 200-499 mg/dLVery High Triglyceride: greater than or equal to 5OO mg/dL Cholesterol 124 <200 mg/dL [facility] Comment:Desirable Cholestero l: less than 200 mg/dLBorderline High Cholesterol: 200-239 mg/dLHigh Cholesterol: greater than 239 mg/dL LDL Cholesterol Calculated 66 <100 mg/dL [facility] Comment:Desirable LDL: less than 100 mg/dLNear Optimal/Above Optimal LDL: 110- 129 mg/dLBorderline High LDL: 130-159 mg/dLHigh LDL: 160-189 mg/dLVery High LDL: greater than or equal to 190 mg/dL HDL Cholesterol 40(L) >40 mg/dL [facility] Comment:Desirable HDL: great er than 40 mg/dL Note: This HDL assay may give artificially low results in patients with liver disease. Blood Venous blood specimen / Unknown 01/23/2024 11:15 AM EDT 01/23/2024 1:17 PM EDT Yelitza Mayers MD LAB BLOOD ORDERABLES Final Res ult [facility] [address] [place] [phone] * (ABNORMAL) POCT A1C (01/15/2024 3:40 PM EDT) Hemoglobin A1C 7.2(A) 4.0 - 6.0 % QC Media Lot # [id number] Lot# Expiration Date ,843 Blood 01/15/2024 3:40 PM EDT Yelitza Mayers MD POINT OF CARE TEST ENTER/EDIT ORDERABLES Final Result from Last 3 Months or Most Recently Relevant to Health Maintenance Insurance [facility] Care Teams Sales Representative Marine Supplies Relationship Specialty Start Date End Date Yelitza Mayers MD [address] [place] [phone] PCP - General Family Medicine 03/15/22
== END 2024-05-07 12:00 | disposition home or self-care (01) ==
PROVIDERS: PCP General Practice; Visit Provider Surgery Vascular Surgery
DX: I83.11 Varicose veins of right lower extremity with inflammation (principal)
CPT/HCPCS: 99213

== ENCOUNTER → 2024-05-07 11:33 | Outpatient (BNVA) | payer OTHER, SELFPAY | PROVIDERS: PCP General Practice; Visit Provider Surgery Vascular Surgery | DX: I83.11 Varicose veins of right lower extremity with inflammation (principal) | CPT/HCPCS: 99212 ==

== ENCOUNTER 2024-05-25 12:54 | Outpatient (RCR) | payer OTHER, SELFPAY ==
--- NOTE | 2024-04-28 12:37 | MHC.PT.EP ---
[facility] [place] [facility] [place] [facility] [place] Office [address] Kaushik Pimentel [address] [phone] F: [phone] F: [phone] F: [phone] F: [phone] Physical Therapy Plan of Care Date of Evaluation: 04/27/24 Date of Surgery: Diagnosis: Cervical radiculopathy (MD Dx) RS mod DDD C5-C7 visualized on x-ray Assessment: Patient is a pleasant, Marshallese speaking 78 y.o. female, attends visit with her SENIOR ELECTRONICS DESIGN ENGINEER, who is referred to PT by Dr. Devin Mercer MD with Dx of Cervical radiculopathy. There is moderate degenerative disc disease C5-C7 visualized on x-ray. Patient impairments include poor posture, limited cervical and shoulder AROM, pain in neck and shoulders, radicular sxs to R elbow, mild weakness in UEs. Patient current functional limitations are pt has SENIOR ELECTRONICS DESIGN ENGINEER that helps with all ADLs; dressing, bathing, cooking, cleaning. Patient will benefit from skilled PT to address aforementioned impairments and functional limitations to meet established goals. Frequency and Duration: The patient will be seen 1x/week for 8 weeks Short Term Goals: 2 weeks Patient demonstrates consistency and independence with HEP to self manage symptoms. Usp Goals: 4 weeks Cheryl presents with increased shoulder flexion AROM 130 degrees bilaterally to have modified independence with dressing/bathing. Cheryl presents with increased cervical rotation 50 degrees bilaterally to look over shoulders to improve mobility and lower fall risk. [ End ] Treatment Plan: Modalities to reduce pain, spasms and effusion. Manual therapy to restore motion and function. Therapeutic exercise to improve strength and flexibility. Neuromuscular re-education for posture and balance. Therapeutic activities to return to functional activities of daily living. Electronically signed by: Ham Hogan, PT, DPT Please sign and return to therapist. Thank you for your referral.
--- NOTE | 2024-07-21 11:44 | MHC.PT.DC ---
[facility] [place] Office [place] Office [place] [facility] [address] Kaushik Pimentel [address] [phone] F: [phone] F: [phone] F: [phone] F: [phone] Physical Therapy Discharge Report Diagnosis: Cervical radiculopathy ( Dx) RS mod DDD C5-C7 visualized on x-ray Date of Surgery: Date of Evaluation: 04/27/24 Date of Discharge: 07/21/24 Treatments to Date: 4 Cancellations to Date: 1 No Shows to Date: 0 Discharge Status: Improved Function Independent with HEP Patient Elected to Stop Discharge Summary: Cheryl was last treated in PT on 05/25/24, the assessment reads Cheryl has shown improvement in ROM in her neck and shoulders since starting PT. She has been doing small HEP with light resistance bands at home with caregiver. She notes some challenge with coming to appointments with the weather so feels okay for discharge from PT today. Electronically signed by: Ham Hogan, PT, DPT Please sign and return to therapist. Thank you for your referral.
== END 2024-07-21 11:44 | disposition home or self-care (01) ==
LOC: HO.PT 12:54
PROVIDERS: PCP General Practice; Visit Provider Internal Medicine
DX: M54.12 Radiculopathy, cervical region (principal)
CPT/HCPCS: 97110; 97140; 97162

== ENCOUNTER 2024-06-17 15:38 | Outpatient (REF) | payer OTHER, SELFPAY ==
[2024-06-17 16:54] LABS: Alanine Aminotransferase 24 U/L (0-31); Albumin Level 4.3 g/dL (3.5-5.0); Alkaline Phosphatase 102 U/L (39-117); Anion Gap 9 (12-20); Aspartate Amino Transferase 24 U/L (5-31); Bilirubin Total 0.5 mg/dL (0.0-1.0); Blood Urea Nitrogen 14 mg/dL (9-16); Calcium 9.8 mg/dL (8.4-10.2); Carbon Dioxide 29 mmol/L (22-29); Chloride 108 mmol/L (96-108); Estimated Glomerular Filt Rate > 60; Glucose Random 114 mg/dL (60-115); Sodium 142 mmol/L (135-145); Total Protein 7.3 g/dL (6.5-8.0)
[2024-06-17 17:09] LABS: TSH reflex Free T4 0.58 uIU/mL (0.32-4.0)
[2024-06-17 17:21] LABS: Folate 18.2 ng/mL (> or = 4.0); Vitamin B12 413 pg/mL (200-900)
[2024-06-18 04:35] LABS: ~HepC Num1 0.15 S/CO (0.00-0.79); ~Hepatitis C Antibody Nonreactive (Nonreactive)
[2024-06-18 14:28] LABS: RPR Rapid Plasma Reagin NON-REACTIVE (NON-REACTIVE)
== END 2024-06-17 15:39 | disposition home or self-care (01) ==
LOC: HO.HHCL 15:38
PROVIDERS: Visit Provider General Practice
DX: N18.31 Chronic kidney disease, stage 3a (principal); R41.3 Other amnesia
CPT/HCPCS: 36415; 80053; 82607; 82746; 84443; 86592; 86803